=== PATIENT | female | born 1935 | race Caucasian/White ===

== ENCOUNTER 2022-10-09 18:40 | Inpatient (IN) ==
[2022-10-09] MEDS ORDERED: OPTIRAY 320 125ml IV ONE (18:56)
[2022-10-09 19:12] LABS: iSTAT Creatinine 0.6 mg/dl (0.6-1.3); iSTAT Hemoglobin 14.6 g/dl (12.0-16.0); iSTAT Ionized Calcium 1.13 mmol/l (1.12-1.32); iSTAT Potassium 4.2 mmol/L (3.3-5.0)
[2022-10-09 19:18] LABS: Basophils # (auto) 0.06 K/uL (0-0.2); Basophils % (auto) 0.5 %; Eosinophils # (auto) 0.25 K/uL (0-0.50); Eosinophils % (auto) 2.1 %; Hematocrit (blood only) 41.5 % (37.0-47.0); Hemoglobin 13.8 g/dl (12.0-16.0); Immature Granulocytes # (auto) 0.12 K/uL (0.01-0.20); Lymphocytes # (auto) 0.97 K/uL (1.2-3.4); Lymphocytes % (auto) 8.3 %; Mean Corpuscular Hemoglobin 28.9 pg (25.0-34.0); Mean Corpuscular Hgb Conc 33.3 g/dL (32.0-36.0); Mean Platelet Volume 10.9 fL (9.4-12.4); Monocytes # (auto) 0.68 K/uL (0.11-0.59); Monocytes % (auto) 5.8 %; Neutrophils # (auto) 9.67 K/uL (1.40-6.50); Neutrophils % (auto) 82.3 %; Platelet Count 259 K/uL (130-400); RDW Coefficient of Variation 13.3 % (11.5-14.5); RDW Standard Deviation 42.3 fL (36.4-46.3); Red Blood Count 4.77 M/uL (4.20-5.40); White Blood Count 11.75 K/ul (4.8-10.8)
--- NOTE | 2022-10-09 19:26 | CT Scan Report ---
Exam(s): CT HEAD Without Contrast EXAM: CT Head Without Intravenous Contrast CLINICAL HISTORY: Reason for exam: neuro deficit, acute stroke suspected. TECHNIQUE: Axial computed tomography images of the head/brain without intravenous contrast. CTDI is 46.63 mGy and DLP is 1020.79 mGy-cm. Automated exposure control was utilized for the study. A dose lowering technique was utilized adhering to the principles of ALARA. COMPARISON: No relevant prior studies available. 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 No clear acute large vessel territory infarction. No intracranial hemorrhage or mass-effect. Atherosclerosis of skull base arteries. The calvarium is intact. No mastoid or paranasal sinus effusion. Left ocular lens prosthesis. IMPRESSION: No acute intracranial process. Communications: Call Doctor Stroke Electronically signed by: Iker Andujar M.D. 10/09/22 19:26 PM
[2022-10-09 19:27] LABS: Albumin Globulin Ratio 1.3 (0.9-2); BUN Creatinine Ratio 38.2 (10-20); Bilirubin,Total 0.5 mg/dl (0.2-1.0); Calcium 9.1 mg/dl (8.6-10.3); Creatinine Clr Calc Pharmacy 44.8 ml/min; Est GFR (African American) 91.8 ml/min; Est GFR (Non-African American) 79.2 ml/min; Globulin 3.2 gm/dl (2.5-4.0); Potassium 4.3 mmol/L (3.5-5.1); Total Protein 7.2 gm/dl (6.0-8.3)
[2022-10-09 19:32] LABS: Troponin I High Sensitivity 8.1 pg/ml (0-14)
--- NOTE | 2022-10-09 19:35 | Emergency Department Note ---
History of Present Illness General Chief complaint: TIA Symptoms Stated complaint: POSSIBLE MINI STROKE OR SEIZURE Time Seen by Provider: 10/09/22 18:47 Source: family History of Present Illness Provider complaint: Altered mental status 87-year-old female presents emergency department with daughter and family members for altered mental status. Daughter reports that approximately 1715 tonight the patient became unresponsive. They state that she was sweaty and her eyes rolled back she was not responding. They state she is usually alert and oriented. 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. Home Medications Medication Instructions Recorded Confirmed Type amlodipine 2.5 mg tablet 2.5 mg PO QAM 10/09/22 10/09/22 History aspirin 81 mg tablet,delayed 81 mg PO QAM 10/09/22 10/09/22 History release atorvastatin 40 mg tablet 40 mg PO QAM 10/09/22 10/09/22 History cyanocobalamin (vitamin B-12) 500 500 mcg PO QAM 10/09/22 10/09/22 History mcg tablet docusate sodium 100 mg capsule 100 mg PO DAILY PRN Constipation 10/09/22 10/09/22 History fluoxetine 10 mg capsule 10 mg PO QAM 10/09/22 10/09/22 History fluoxetine 20 mg capsule 20 mg PO QAM 10/09/22 10/09/22 History fluticasone propionate 50 1 spray intranasal QAM 10/09/22 10/09/22 History mcg/actuation nasal spray,suspension folic acid 1 mg tablet 1 mg PO BID 10/09/22 10/09/22 History hydrocortisone 2.5 % topical cream 1 applic topical BID 10/09/22 10/09/22 History with perineal applicator (Procto-Med ) lansoprazole 15 mg capsule,delayed 15 mg PO DAILYBB 10/09/22 10/09/22 History release levothyroxine 75 mcg tablet 75 mcg PO DAILYBB 10/09/22 10/09/22 History losartan 50 mg tablet 50 mg PO BID 10/09/22 10/09/22 History melatonin 5 mg tablet 5 mg PO HS 10/09/22 10/09/22 History polyethylene glycol 3350 17 17 g PO DAILY PRN Constipation 10/09/22 10/09/22 History gram/dose oral powder (Miralax) sennosides 8.6 mg tablet (senna) 8.6 mg PO DAILY PRN Constipation 10/09/22 10/09/22 History sodium chloride 1,000 mg soluble 1,000 mg PO QAM 10/09/22 10/09/22 History tablet tizanidine 4 mg tablet 4 mg PO BID 10/09/22 10/09/22 History triamcinolone acetonide 0.1 % 1 applic topical BID 10/09/22 10/09/22 History topical cream Allergies Allergy/AdvReac Type Severity Reaction Status Date / Time allopurinol Allergy Unknown Verified 10/09/22 19:28 lisinopril Allergy Cough Verified 10/09/22 19:28 Past Med/Surg History Medical History CVA (cerebral vascular accident) GERD (gastroesophageal reflux disease) HLD (hyperlipidemia) No pertinent family history Surgical History No pertinent past surgical history Social History Smoking Status: Never smoker Physical Exam Vital Signs Vital Signs - 24 hr 10/09/22 18:43 10/09/22 18:53 10/09/22 18:53 Temperature 36.5 C Temperature Source Temporal Artery Scan Pulse Rate 75 66 66 Pulse Rate from SpO2 Sensor Respiratory Rate 18 21 Blood Pressure 138/73 Blood Pressure Mean 94 Pulse Oximetry 94 Oxygen Delivery Method Room Air Sepsis Recent Fever Within 48 Hours No Sepsis New/Unexplained Change in Mental Status No Sepsis Action Taken by Nursing No Action Required 10/09/22 19:00 10/09/22 19:11 10/09/22 19:16 Temperature Temperature Source Pulse Rate 67 100 H 73 Pulse Rate from SpO2 Sensor 66 84 73 Respiratory Rate 21 12 21 Blood Pressure 146/72 H 146/68 H Blood Pressure Mean 96 94 Pulse Oximetry 95 92 98 Oxygen Delivery Method Sepsis Recent Fever Within 48 Hours Sepsis New/Unexplained Change in Mental Status Sepsis Action Taken by Nursing 10/09/22 19:20 10/09/22 19:30 Temperature Temperature Source Pulse Rate 72 70 Pulse Rate from SpO2 Sensor 71 71 Respiratory Rate 19 19 Blood Pressure 147/93 H Blood Pressure Mean 111 Pulse Oximetry 97 95 Oxygen Delivery Method Sepsis Recent Fever Within 48 Hours Sepsis New/Unexplained Change in Mental Status Sepsis Action Taken by Nursing Physical Exam EYES: Conjunctivae and EOM are normal. Pupils are equal, round, and reactive to light. Right eye exhibits no discharge. Left eye exhibits no discharge. No scleral icterus. NECK: Normal range of motion. Neck supple. No JVD present. CV: Normal rate, regular rhythm, normal heart sounds and intact distal pulses. There is no peripheral edema. Palpable radial pulses bue. PULM/CHEST: Effort normal and breath sounds normal. No respiratory distress. No stridor. She has no wheezes. She has no rales. NEURO: Patient is alert. She is responsive to her name. She does have some left-sided neglect family reports this is new. Left-sided hemiparesis at baseline. Course Course 1846: The patient was evaluated in room C4. A complete history and physical exam was performed Cardiac monitoring: An order was placed for continuous cardiac monitoring. The monitor shows a rate of 60 with sinus rhythm interpreted by me Code stroke called. 1906: CT of the head viewed by me shows no ICH. There is a large right-sided infarct which appears old. Discussed with her she telestroke Dr. Milligan who will evaluate the pateint 1936: Vital signs stable. Patient more alert.. Discussed with Dr. Brian Evarts telestroke who compared today's imaging to the previous imaging at [facility]. He states there are no acute findings. Given the sudden onset of the patient's symptoms and her come back to her baseline mental status and neurological status there is strong likelihood that the patient could have had a seizure after her large stroke in the past. He recommends loading the patient with Keppra 1 g IV piggyback and inserted the patient on Keppra 500 mg twice daily. Patient be admitted to the hospital service for MRI and further neurological work-up. Family is in agreement with the plan. Administered Medications Discontinued Medications Ioversol (Optiray 320 125ml) 120 ml IV ONCE ONE Stop: 10/09/22 18:57 Last Admin: 10/09/22 18:56 Dose: 120 ml Documented By: ERIC Medical Decision Making Laboratory Data Attestation: I reviewed the patient's lab results. 10/09/22 18:57 10/09/22 18:57 Lab Results 10/09/22 10/09/22 10/09/22 Range/Units 18:51 18:57 18:57 WBC 11.75 H (4.8-10.8) K/ul RBC 4.77 (4.20-5.40) M/uL Hgb 13.8 (12.0-16.0) g/dl POC Hgb (12.0-16.0) g/dl Hct 41.5 (37.0-47.0) % POC Hct (37-47) % MCV 87.0 (80.0-100.0) fL MCH 28.9 (25.0-34.0) pg MCHC 33.3 (32.0-36.0) g/dL RDW Std Deviation 42.3 (36.4-46.3) fL RDW Coeff of Cheryl 13.3 (11.5-14.5) % Plt Count 259 (130-400) K/uL MPV 10.9 (9.4-12.4) fL Immature Gran % (Auto) 1.0 % Neut % (Auto) 82.3 % Lymph % (Auto) 8.3 % Brown % (Auto) 5.8 % Eos % (Auto) 2.1 % Baso % (Auto) 0.5 % Neut # (Auto) 9.67 H (1.40-6.50) K/uL Lymph # (Auto) 0.97 L (1.2-3.4) K/uL Brown # (Auto) 0.68 H (0.11-0.59) K/uL Eos # (Auto) 0.25 (0-0.50) K/uL Baso # (Auto) 0.06 (0-0.2) K/uL Immature Gran # (Auto) 0.12 (0.01-0.20) K/uL PT 10.6 (9.0-12.0) Seconds INR 1.0 (0.9-1.1) APTT 24.8 (21.0-31.0) Seconds PTT Ratio 0.9 POC Sodium (135-144) mmol/L Sodium (136-145) mmol/L POC Potassium (3.3-5.0) mmol/L Potassium (3.5-5.1) mmol/L POC Chloride (101-112) mmol/L Chloride (98-107) mmol/L Carbon Dioxide (21-32) mmol/L POC Total CO2 (24-31) mmol/L Anion Gap (3-11) POC Anion Gap (16-25) mmol/L POC BUN (7-18) mg/dl BUN (6-23) mg/dl Creatinine (0.6-1.2) mg/dl POC Creatinine (0.6-1.3) mg/dl Est Cr Clr Drug Dosing ml/min Est GFR ( Amer) ml/min Est GFR (Non-Af Amer) ml/min BUN/Creatinine Ratio (10-20) Glucose (70-99(Fasting)) mg/dl POC Glucose 117 H (70-99) mg/dl POC Glucose (other) (70-99) mg/dl Calcium (8.6-10.3) mg/dl POC Ioniz Calcium Mahendra (1.12-1.32) mmol/l Magnesium (1.7-2.4) mg/dl Total Bilirubin (0.2-1.0) mg/dl AST (13-39) U/L ALT (7-52) U/L Alkaline Phosphatase (34-104) U/L Troponin I High Sens (0-14) pg/ml Total Protein (6.0-8.3) gm/dl Albumin (3.4-5.0) gm/dl Globulin (2.5-4.0) gm/dl Albumin/Globulin Ratio (0.9-2) 10/09/22 10/09/22 Range/Units 18:57 19:00 WBC (4.8-10.8) K/ul RBC (4.20-5.40) M/uL Hgb (12.0-16.0) g/dl POC Hgb 14.6 (12.0-16.0) g/dl Hct (37.0-47.0) % POC Hct 43 (37-47) % MCV (80.0-100.0) fL MCH (25.0-34.0) pg MCHC (32.0-36.0) g/dL RDW Std Deviation (36.4-46.3) fL RDW Coeff of Cheryl (11.5-14.5) % Plt Count (130-400) K/uL MPV (9.4-12.4) fL Immature Gran % (Auto) % Neut % (Auto) % Lymph % (Auto) % Brown % (Auto) % Eos % (Auto) % Baso % (Auto) % Neut # (Auto) (1.40-6.50) K/uL Lymph # (Auto) (1.2-3.4) K/uL Brown # (Auto) (0.11-0.59) K/uL Eos # (Auto) (0-0.50) K/uL Baso # (Auto) (0-0.2) K/uL Immature Gran # (Auto) (0.01-0.20) K/uL PT (9.0-12.0) Seconds INR (0.9-1.1) APTT (21.0-31.0) Seconds PTT Ratio POC Sodium 140 (135-144) mmol/L Sodium 138 (136-145) mmol/L POC Potassium 4.2 (3.3-5.0) mmol/L Potassium 4.3 (3.5-5.1) mmol/L POC Chloride 104 (101-112) mmol/L Chloride 105 (98-107) mmol/L Carbon Dioxide 26 (21-32) mmol/L POC Total CO2 24 (24-31) mmol/L Anion Gap 7 (3-11) POC Anion Gap 18.0 (16-25) mmol/L POC BUN 25 H (7-18) mg/dl BUN 26 H (6-23) mg/dl Creatinine 0.68 (0.6-1.2) mg/dl POC Creatinine 0.6 (0.6-1.3) mg/dl Est Cr Clr Drug Dosing 44.8 ml/min Est GFR ( Amer) 91.8 ml/min Est GFR (Non-Af Amer) 79.2 ml/min BUN/Creatinine Ratio 38.2 H (10-20) Glucose 116 H (70-99(Fasting)) mg/dl POC Glucose (70-99) mg/dl POC Glucose (other) 116 H (70-99) mg/dl Calcium 9.1 (8.6-10.3) mg/dl POC Ioniz Calcium Mahendra 1.13 (1.12-1.32) mmol/l Magnesium 2.0 (1.7-2.4) mg/dl Total Bilirubin 0.5 (0.2-1.0) mg/dl AST 17 (13-39) U/L ALT 29 (7-52) U/L Alkaline Phosphatase 118 H (34-104) U/L Troponin I High Sens 8.1 (0-14) pg/ml Total Protein 7.2 (6.0-8.3) gm/dl Albumin 4.0 (3.4-5.0) gm/dl Globulin 3.2 (2.5-4.0) gm/dl Albumin/Globulin Ratio 1.3 (0.9-2) Imaging Data Attestation: I personally reviewed and interpreted this imaging study as follows: My Impression: CT head: Large old right-sided infarct. No ICH. Radiologist's Impression: Head CT 10/09/22 18:52 CR Exam(s): CT HEAD Without Contrast EXAM: CT Head Without Intravenous Contrast CLINICAL HISTORY: Reason for exam: neuro deficit, acute stroke suspected. TECHNIQUE: Axial computed tomography images of the head/brain without intravenous contrast. CTDI is 46.63 mGy and DLP is 1020.79 mGy-cm. Automated exposure control was utilized for the study. A dose lowering technique was utilized adhering to the principles of ALARA. COMPARISON: No relevant prior studies available. 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 No clear acute large vessel territory infarction. No intracranial hemorrhage or mass-effect. Atherosclerosis of skull base arteries. The calvarium is intact. No mastoid or paranasal sinus effusion. Left ocular lens prosthesis. IMPRESSION: No acute intracranial process. Communications: Call Doctor Stroke Electronically signed by: Iker Andujar M.D. 10/09/22 19:26 PM Head CTA 10/09/22 18:52 CR Exam(s): CTA HEAD With Contrast IV Amt: 120ML OPTIRAY 320 EXAM: CT Angiography Head With Intravenous Contrast CLINICAL HISTORY: Reason for exam: neuro deficit, acute stroke suspected. TECHNIQUE: Axial computed tomographic angiography images of the head with intravenous contrast. CTDI is 46.63 mGy and DLP is 1020.79 mGy-cm. Automated exposure control was utilized for the study. A dose lowering technique was utilized adhering to the principles of ALARA. MIP reconstructed images were created and reviewed. CONTRAST: Patient received 120ML OPTIRAY 320 of IV contrast COMPARISON: Noncontrast exam of same date. FINDINGS: Chronically atretic branches of the right middle cerebral artery related to the large chronic infarct as seen on concurrent noncontrast exam. The left MCA demonstrates no acute thromboembolism. There is extensive atherosclerosis of the intracranial internal carotid arteries with severe bilateral supraclinoid segment narrowing and moderate stenosis elsewhere. Severe left and moderate right intracranial vertebral artery narrowing. Patent basilar artery. IMPRESSION: No acute large vessel occlusion. 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 Severe intracranial internal carotid artery stenosis. Severe left and moderate right vertebral artery narrowing. Communications: Call Doctor Stroke Electronically signed by: Iker Andujar M.D. 10/09/22 19:32 PM Neck CTA 10/09/22 18:52 CR Exam(s): CTA NECK With Contrast IV Amt: 120ML OPTIRAY 320 EXAM: CT Angiography Neck With Intravenous Contrast CLINICAL HISTORY: Reason for exam: neuro deficit, acute stroke suspected. TECHNIQUE: Routine carotid CT angiography protocol was performed with intravenous contrast. NASCET criteria using the distal ICAs for comparison were used for evaluation of stenoses. CTDI is 12.46 mGy and DLP is 1020.79 mGy-cm. Automated exposure control was utilized for the study. A dose lowering technique was utilized adhering to the principles of ALARA. MIP reconstructed images were created and reviewed. CONTRAST: Patient received 120ML OPTIRAY 320 of IV contrast COMPARISON: None. FINDINGS: Calcified plaque at the left carotid bifurcation with severe stenosis of the proximal left internal carotid artery, 90% narrowed. Moderate narrowing of the proximal left external carotid artery as well. Plaque at the right carotid bifurcation is not associated with significant narrowing. Mild narrowing of the dominant right vertebral artery at the C1 level. 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 Mild plaque at the origin without narrowing. Mild, age indeterminate compression deformity of the T1 vertebral body. No retropulsion. Multilevel spondylosis. CAROTID STENOSIS REFERENCE USING NASCET CRITERIA: % ICA stenosis = (1 - narrowest ICA diameter/diameter of distal cervical ICA) x 100. Mild - <50% stenosis. Moderate - 50-69% stenosis. Severe - 70-94% stenosis. Near occlusion - 95-99% stenosis. Occluded - 100% stenosis. IMPRESSION: Calcified plaque at the left carotid bifurcation with severe stenosis of the proximal left internal carotid artery, 90% narrowed. Mild narrowing of the dominant right vertebral artery at the C1 level. Mild, age indeterminate compression deformity of the T1 vertebral body. Communications: Call Doctor Stroke Electronically signed by: Iker Andujar M.D. 10/09/22 19:39 PM ECG Data Attestation: I personally reviewed and interpreted this ECG as follows: Rate (beats per minute): 77 Rhythm: + normal sinus ECG Intervals/blocks: + Normal AR and + Normal QT-c ECG ST segments: + Normal ST segments Additional Comments: QRS 74 MDM Narrative 1846: The patient was evaluated in room C4. A complete history and physical exam was performed Cardiac monitoring: An order was placed for continuous cardiac monitoring. The monitor shows a rate of 60 with sinus rhythm interpreted by me Code stroke called. 1906: CT of the head viewed by me shows no ICH. There is a large right-sided infarct which appears old. Discussed with her she telestroke Dr. Milligan who will evaluate the pateint 1936: Vital signs stable. Patient more alert.. Discussed with Dr. Brian Evarts telestroke who compared today's imaging to the previous imaging at [facility]. He states there are no acute findings. Given the sudden onset of the patient's symptoms and her come back to her baseline mental status and neurological status there is strong likelihood that the patient could have had a seizure after her large stroke in the past. He recommends loading the patient with Keppra 1 g IV piggyback and inserted the patient on Keppra 500 mg twice daily. Patient be admitted to the hospital service for MRI and further neurological work-up. Family is in agreement with the plan. Impression & Plan Brain TIA, Seizure-like activity Discharge Plan Visit Data Chief Complaint: TIA Symptoms Stated Complaint: POSSIBLE MINI STROKE OR SEIZURE ED Provider: Jacques Fernandez Discharge Problem: Brain TIA, Seizure-like activity Patient Disposition: Admitted As Inpatient Forms Stand Alone Forms: My [facility] Prescriptions Prescriptions: No Action atorvastatin 40 mg tablet 40 mg PO QAM levothyroxine 75 mcg tablet 75 mcg PO DAILYBB hydrocortisone [Procto-Med HC] 2.5 % cream with perineal applicator 1 applic topical BID losartan 50 mg tablet 50 mg PO BID triamcinolone acetonide 0.1 % cream 1 applic TOPICAL BID cyanocobalamin (vitamin B-12) 500 mcg tablet 500 mcg PO QAM lansoprazole 15 mg capsule,delayed release(DR/EC) 15 mg PO DAILYBB folic acid 1 mg tablet 1 mg PO BID amlodipine 2.5 mg tablet 2.5 mg PO QAM fluoxetine 10 mg capsule 10 mg PO QAM fluoxetine 20 mg capsule 20 mg PO QAM melatonin 5 mg Tablet 5 mg PO HS tizanidine 4 mg tablet 4 mg PO BID aspirin [Aspirin Low-Strength] 81 mg Tablet,Delayed Release (Dr/Ec) 81 mg PO QAM sodium chloride 1,000 mg Tablet,Soluble 1,000 mg PO QAM docusate sodium 100 mg Capsule 100 mg PO DAILY PRN (Reason: Constipation) polyethylene glycol 3350 [Miralax] 17 gram/dose Powder 17 g PO DAILY PRN (Reason: Constipation) fluticasone propionate 50 mcg/actuation spray,suspension 1 spray INTRANASAL QAM sennosides [senna] 8.6 mg Tablet 8.6 mg PO DAILY PRN (Reason: Constipation) Referrals Referrals: Brock Stuart MD [Primary Care Provider] -
[2022-10-09] MEDS ORDERED: levETIRAcetam 1,000 MG in 0.9 % SODIUM CHLORIDE 100 ML IV STA (19:39)
--- NOTE | 2022-10-09 19:40 | CT Scan Report ---
Exam(s): CTA NECK With Contrast IV Amt: 120ML OPTIRAY 320 EXAM: CT Angiography Neck With Intravenous Contrast CLINICAL HISTORY: Reason for exam: neuro deficit, acute stroke suspected. TECHNIQUE: Routine carotid CT angiography protocol was performed with intravenous contrast. NASCET criteria using the distal ICAs for comparison were used for evaluation of stenoses. CTDI is 12.46 mGy and DLP is 1020.79 mGy-cm. Automated exposure control was utilized for the study. A dose lowering technique was utilized adhering to the principles of ALARA. MIP reconstructed images were created and reviewed. CONTRAST: Patient received 120ML OPTIRAY 320 of IV contrast COMPARISON: None. FINDINGS: Calcified plaque at the left carotid bifurcation with severe stenosis of the proximal left internal carotid artery, 90% narrowed. Moderate narrowing of the proximal left external carotid artery as well. Plaque at the right carotid bifurcation is not associated with significant narrowing. Mild narrowing of the dominant right vertebral artery at the C1 level. 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 Mild plaque at the origin without narrowing. Mild, age indeterminate compression deformity of the T1 vertebral body. No retropulsion. Multilevel spondylosis. CAROTID STENOSIS REFERENCE USING NASCET CRITERIA: % ICA stenosis = (1 - narrowest ICA diameter/diameter of distal cervical ICA) x 100. Mild - <50% stenosis. Moderate - 50-69% stenosis. Severe - 70-94% stenosis. Near occlusion - 95-99% stenosis. Occluded - 100% stenosis. IMPRESSION: Calcified plaque at the left carotid bifurcation with severe stenosis of the proximal left internal carotid artery, 90% narrowed. Mild narrowing of the dominant right vertebral artery at the C1 level. Mild, age indeterminate compression deformity of the T1 vertebral body. Communications: Call Doctor Stroke Electronically signed by: Iker Andujar M.D. 10/09/22 19:39 PM
[2022-10-09 19:43] LABS: Partial Thromboplastin Ratio 0.9; Partial Thromboplastin Time 24.8 Seconds (21.0-31.0); Prothrombin Time 10.6 Seconds (9.0-12.0)
[2022-10-09] MEDS ORDERED: SODIUM CHLORIDE 0.9% 1000ML 1,000 ML IV ONE (19:55)
--- NOTE | 2022-10-09 20:04 | History & Physical Report ---
Date of Service October 09, 2022 Assessment & Plan (1) Stroke-like symptoms: (2) Seizure-like activity: (3) HLD (hyperlipidemia): (4) HTN (hypertension): (5) History of CVA (cerebrovascular accident): (6) Hypothyroidism: Plan 87 year old that presents to ED with stroke like symptoms. [facility] [place] suspect seizures post CVA 11/2021. Load with keppra and continue maintenance Keppra 10/10. MRI and EEG with Neuro consult. PT/OT/ST. Appears back to baseline. Has chronic left sided hemiplegia. Stroke Like Symptoms: Seizure Like Activity: CN II-XII intact. no facial droop head CT: No acute intracranial process. Head and Neck CTA: Calcified plaque at the left carotid bifurcation with severe stenosis of the proximal left internal carotid artery, 90% narrowed. Mild narrowing of the dominant right vertebral artery at the C1 level. [facility] [place] done in ED; suspect seizure related to previous stroke in 2021. Keppra loading dose with continued maintenance dose starting 10/10 MRI of brain to r/o CVA; patient with lens implant 2008 may need occular x-ray prior to MRI. EEG to evaluate brain wave activity Neuro Consult PT/OT/ST NPO until ST eval/dysphagia screening H/O R MCA CVA: s/p thrombectomy Stroke 11/25/21 and was living in [place] Was at [facility] and then [facility] for two weeks. chronic left sided hemiplegia She is on ASA for secondary stroke prevention Enteral Nutrition: s/p CVA Has a LUQ PEG tube post stroke; gets Jevity 1.2 Q4 via PEG. All feedings and meds through PEG. Medications need to be converted to crushable, granules, or IV Some redness noted around PEG site; consider WOCN consult Diarrhea from feedings; consider Nutrition consult for feeding dose adjustments Elevate heels off of bed for skin integrity promotion due to increased contractures HTN: takes Amlodipine and Losartan; consider holding for permissive HTN until CVA ruled out with MRI HLD: Takes Atorvastatin; continue Neuro may consider higher dose Hypothyroidism: Takes Levothyroxine; continue Disposition: PCP: Dr. Bettencourt Code Status: DNR/DNI VTE Prophylaxis: TEDS/SCDs or otherwise outlined by attending physician I spent a total of 87 minutes coordinating, documenting, and providing care for this patient excluding time spent in the performance of separately billed services. All of the aforementioned completed while collaborating with the assigned attending physician for a full treatment plan. Please see their addendum for further details. History of Present Illness Chief Complaint: stroke like symptoms Primary Care Provider: Brock Stuart MD 87 year old that presents with family after being found to be unresponsive at home. At 1715 she was leaning back in her wheelchair and she was diaphoretic and not lifting her head up. Her eyes were rolling back and became unresponsive. She was not consistency answering questions. She was ok earlier today and then had an acute change. She is mostly wheelchair bound at baseline. Pt daughter, Gavi reports it appears she has returned to her normal baseline mental status. She was able to answer some questions on her own to me, but is AAOx1. She is unaware as to what brought her in to the hospital today and does not recall any of the events from earlier this evening. No reported seizures. 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 Patient is on ASA for secondary stroke prevention as well as Lipitor. 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 She has been reportedly declining since her stroke in 2021 for which she was admitted for two weeks and then went to [facility] for two weeks therafter. She does have moderate baseline cognitive deficits post stroke, with intermittent periods of delirium and confusion. After her stroke she had a PEG tube placed and receives Bolus feedings with Jevity 1.2. Feeding tube is utiliz ed for feedings and medications. She takes 4-5 8 oz containers per day. Most recent swallow study was in February 2022. She is able to eat pureed and drinks coffee orally, small sips. She does have some coughing and drooling with eating. She was following with Haseeb ROTHMAN in [facility] for management of her PEG tube but was discharged from care in May 2022 as she was tolerative the tube without issues, leakage, or inflammation. Pt does have a cardiac LINQ Medtr[employer] device that was placed in [place] and reportedly is for evaluation for arrhythmias and AF. No known events reported by daughter. No tobacco, alcohol, or recreational drug use. Mild Leukocytosis; WBC 111.75, otherwise labs unremarkable. Family is trying to obtain respite care for an upcoming trip. Confirmed patient is DNR/DNI. No fever or chills recently, no chest pain, or known palpitations, no abdominal pain, Nausea or vomiting, no recent travel. Pt does have diarrhea from [facility]. No malodorous stool or mucus noted. Patient will be admitted for further evaluation and management. Please see A/P for further details. Allergies Allergy/AdvReac Type Severity Reaction Status Date / Time allopurinol Allergy Unknown Verified 10/09/22 19:28 lisinopril Allergy Cough Verified 10/09/22 19:28 Home Medications Medication Instructions Recorded Confirmed Type amlodipine 2.5 mg tablet 2.5 mg PO QAM 10/09/22 10/09/22 History aspirin 81 mg tablet,delayed 81 mg PO QAM 10/09/22 10/09/22 History release atorvastatin 40 mg tablet 40 mg PO QAM 10/09/22 10/09/22 History cyanocobalamin (vitamin B-12) 500 500 mcg PO QAM 10/09/22 10/09/22 History mcg tablet docusate sodium 100 mg capsule 100 mg PO DAILY PRN Constipation 10/09/22 10/09/22 History fluoxetine 10 mg capsule 10 mg PO QAM 10/09/22 10/09/22 History fluoxetine 20 mg capsule 20 mg PO QAM 10/09/22 10/09/22 History fluticasone propionate 50 1 spray intranasal QAM 10/09/22 10/09/22 History mcg/actuation nasal spray,suspension folic acid 1 mg tablet 1 mg PO BID 10/09/22 10/09/22 History hydrocortisone 2.5 % topical cream 1 applic topical BID 10/09/22 10/09/22 History with perineal applicator (Procto-Med ) lactose-reduced food with fiber 1 ea feeding tube Q4H 10/09/22 10/09/22 History 0.06 gram-1.2 kcal/mL oral liquid (Jevity 1.2 Hakeem) lansoprazole 15 mg capsule,delayed 15 mg PO DAILYBB 10/09/22 10/09/22 History release levothyroxine 75 mcg tablet 75 mcg PO DAILYBB 10/09/22 10/09/22 History losartan 50 mg tablet 50 mg PO BID 10/09/22 10/09/22 History melatonin 5 mg tablet 5 mg PO HS 10/09/22 10/09/22 History polyethylene glycol 3350 17 17 g PO DAILY PRN Constipation 10/09/22 10/09/22 History gram/dose oral powder (Miralax) sennosides 8.6 mg tablet (senna) 8.6 mg PO DAILY PRN Constipation 10/09/22 10/09/22 History sodium chloride 1,000 mg soluble 1,000 mg PO QAM 10/09/22 10/09/22 History tablet triamcinolone acetonide 0.1 % 1 applic topical BID 10/09/22 10/09/22 History topical cream Past Med/Surg History Medical History (Updated 10/09/22 @ 20:59 by CRICKET Casillas) CVA (cerebral vascular accident) GERD (gastroesophageal reflux disease) History of CVA (cerebrovascular accident) HLD (hyperlipidemia) HTN (hypertension) Hypothyroidism No pertinent family history Stroke-like symptoms Surgical History No pertinent past surgical history Social History Smoking Status: Never smoker Hx Alcohol Use: No Hx Substance Use: No Preferred Language: Nepali Communication Ability: Effective 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 Other Information That Helps Us Care for You: No Feels Safe at Home: Yes Safety Concerns: Feels Safe At This Time Assistive Devices: Denture - Upper and Wheelchair Review of Systems Review of Systems: Neuro: (-) Falls, trauma, slurred speech HEENT: (-) CARRERA, dizziness, dysphagia, visual or auditory changes CV: (-) CP, palpitations, swelling Resp: (-) SOB GI: (-) appetite changes, N/V/D, bowel changes : (-) urinary changes Skin: (-) rashes Psych: (-) anxiety, depression Physical Exam Physical Exam: Neuro: AAOx4, PERRLA, no aphagia, memory changes, CNII-XII grossly intact HEENT: head normocephalic, moist mucus membranes CV: S1/S2, (-) M/G/R, (-) edema, cap refill < 3 seconds Resp: Lungs CTA in all shoemaker. On RA GI: Abdomen S/NT/ND, Ax4 bowel sounds, (-) CVA tenderness Musculoskeletal: 5/5 B/L UE strength, 5/5 B/L LE strength. No gait disturbance Skin: (-) rashes , (-) erythema. Psych: euthymic mood Results & Data Results & Data Vital Signs (Past 12 Hours) Vital Signs Temp Pulse Resp BP Pulse Ox O2 Del Method 10/09/22 19:30 70 19 147/93 H 95 10/09/22 19:20 72 19 97 10/09/22 19:16 73 21 146/68 H 98 10/09/22 19:11 100 H 12 92 10/09/22 19:00 67 21 146/72 H 95 10/09/22 18:53 66 21 10/09/22 18:53 66 10/09/22 18:43 36.5 C 75 18 138/73 94 Room Air Laboratory Results Short CBC 10/09/22 Range/Units 18:57 WBC 11.75 H (4.8-10.8) K/ul Hgb 13.8 (12.0-16.0) g/dl Hct 41.5 (37.0-47.0) % Plt Count 259 (130-400) K/uL BMP 10/09/22 18:57 Sodium 138 Potassium 4.3 Chloride 105 Carbon Dioxide 26 BUN 26 H Creatinine 0.68 Glucose 116 H Calcium 9.1 Liver Function 10/09/22 Range/Units 18:57 Total Bilirubin 0.5 (0.2-1.0) mg/dl AST 17 (13-39) U/L ALT 29 (7-52) U/L Alkaline Phosphatase 118 H (34-104) U/L Albumin 4.0 (3.4-5.0) gm/dl Diagnostic Findings Head CT 10/09/22 18:52 CR Exam(s): CT HEAD Without Contrast EXAM: CT Head Without Intravenous Contrast CLINICAL HISTORY: Reason for exam: neuro deficit, acute stroke suspected. TECHNIQUE: Axial computed tomography images of the head/brain without intravenous contrast. CTDI is 46.63 mGy and DLP is 1020.79 mGy-cm. Automated exposure control was utilized for the study. A dose lowering technique was utilized adhering to the principles of ALARA. COMPARISON: No relevant prior studies available. 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 No clear acute large vessel territory infarction. No intracranial hemorrhage or mass-effect. Atherosclerosis of skull base arteries. The calvarium is intact. No mastoid or paranasal sinus effusion. Left ocular lens prosthesis. IMPRESSION: No acute intracranial process. Communications: Call Doctor Stroke Electronically signed by: Iker Andujar M.D. 10/09/22 19:26 PM Head CTA 10/09/22 18:52 CR Exam(s): CTA HEAD With Contrast IV Amt: 120ML OPTIRAY 320 EXAM: CT Angiography Head With Intravenous Contrast CLINICAL HISTORY: Reason for exam: neuro deficit, acute stroke suspected. TECHNIQUE: Axial computed tomographic angiography images of the head with intravenous contrast. CTDI is 46.63 mGy and DLP is 1020.79 mGy-cm. Automated exposure control was utilized for the study. A dose lowering technique was utilized adhering to the principles of ALARA. MIP reconstructed images were created and reviewed. CONTRAST: Patient received 120ML OPTIRAY 320 of IV contrast COMPARISON: Noncontrast exam of same date. FINDINGS: Chronically atretic branches of the right middle cerebral artery related to the large chronic infarct as seen on concurrent noncontrast exam. The left MCA demonstrates no acute thromboembolism. There is extensive atherosclerosis of the intracranial internal carotid arteries with severe bilateral supraclinoid segment narrowing and moderate stenosis elsewhere. Severe left and moderate right intracranial vertebral artery narrowing. Patent basilar artery. IMPRESSION: No acute large vessel occlusion. 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 Severe intracranial internal carotid artery stenosis. Severe left and moderate right vertebral artery narrowing. Communications: Call Doctor Stroke Electronically signed by: Iker Andujar M.D. 10/09/22 19:32 PM Neck CTA 10/09/22 18:52 CR Exam(s): CTA NECK With Contrast IV Amt: 120ML OPTIRAY 320 EXAM: CT Angiography Neck With Intravenous Contrast CLINICAL HISTORY: Reason for exam: neuro deficit, acute stroke suspected. TECHNIQUE: Routine carotid CT angiography protocol was performed with intravenous contrast. NASCET criteria using the distal ICAs for comparison were used for evaluation of stenoses. CTDI is 12.46 mGy and DLP is 1020.79 mGy-cm. Automated exposure control was utilized for the study. A dose lowering technique was utilized adhering to the principles of ALARA. MIP reconstructed images were created and reviewed. CONTRAST: Patient received 120ML OPTIRAY 320 of IV contrast COMPARISON: None. FINDINGS: Calcified plaque at the left carotid bifurcation with severe stenosis of the proximal left internal carotid artery, 90% narrowed. Moderate narrowing of the proximal left external carotid artery as well. Plaque at the right carotid bifurcation is not associated with significant narrowing. Mild narrowing of the dominant right vertebral artery at the C1 level. 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 Mild plaque at the origin without narrowing. Mild, age indeterminate compression deformity of the T1 vertebral body. No retropulsion. Multilevel spondylosis. CAROTID STENOSIS REFERENCE USING NASCET CRITERIA: % ICA stenosis = (1 - narrowest ICA diameter/diameter of distal cervical ICA) x 100. Mild - <50% stenosis. Moderate - 50-69% stenosis. Severe - 70-94% stenosis. Near occlusion - 95-99% stenosis. Occluded - 100% stenosis. IMPRESSION: Calcified plaque at the left carotid bifurcation with severe stenosis of the proximal left internal carotid artery, 90% narrowed. Mild narrowing of the dominant right vertebral artery at the C1 level. Mild, age indeterminate compression deformity of the T1 vertebral body. Communications: Call Doctor Stroke Electronically signed by: Iker Andujar M.D. 10/09/22 19:39 PM Supervising Physician Co-Signing Physician Notes IM ATTENDING : Patient seen and examined. History obtained from patient, family, and records. History somewhat limited from patient secondary to hearing impairment and dementia Preceding documentation by CRICKET Bird reviewed. In addition, Heart rate currently 140s UA WBC est FINAL ASSESSMENT AND PLAN as follows : Sepsis secondary to complicated UTI Transient unresponsiveness possibly secondary to new onset seizure hx abnormal EEG as per records hx right MCA stroke status post thrombectomy (2021) Lowered seizure threshold secondary to UTI Increased drooling symptoms, known aspiration risk hx PEG tube placement History PAF, patient NSR/sinus tachycardia at the ER hx PVD HTN, slightly elevated secondary to illness Dementia as per records Hypothyroidism, euthyroid as of recent outpatient TSH of 0.67 drawn this month Hyperglycemia rule out DM Past tobacco abuse PCU given tachycardia CS, Azactam for now; add Daptomycin if patient becomes febrile despite as Azactam rx or leukocytosis does not improve given history of Enterococcus UTI as per outpatient records Continue Keppra for seizure prophylaxis as per [facility] stroke specialist recommendation EEG, MRI brain for new onset seizure work-up Neurology consult Re: Possible new onset seizures Check hemoglobin A1c aspiration precautions, swallow eval DVT prophylaxis. Lovenox subcu DNR Patient daughter requesting updates from providers. Gavi Rebolledo, contact #[phone]. Text document was generated using [employer] voice recognition software. It may contain grammatical or spelling errors. Kindly contact undersigned for clarification of any documentation item in question.
[2022-10-09] MEDS ORDERED: LORazepam 2 MG/1 ML VIAL IV PRN (21:25)
--- NOTE | 2022-10-09 22:11 | XRay Report ---
BONY ORBITS 3 VIEWS CLINICAL HISTORY: MRI clearance. FINDINGS: 3 views of the bony orbits are obtained. No prior studies are available for comparison at t he time of dictation. There is no radiodense/metallic foreign body seen in the region of the bony orb its. The bony orbits are intact as imaged. The visualized paranasal sinuses and the mastoid air cells appear clear. The imaged calvarium appears intact. IMPRESSION: There is no radiodense/metallic foreign body seen in the region of the bony orbits. ACT 112: Negative or not required by law. Electronically signed by: Benny White M.D. 10/09/2022 10:08 PM
[2022-10-09 22:39] LABS: Appearance Urine Turbid (Clear); Bacteria Urine Automated 1+ (Negative); Bilirubin Urine Negative (Negative); Blood Urine 1+ (Negative); Color Urine Yellow; Epithelial Cell Urine Auto >30 /lpf (0-5); Glucose Urine UA Negative (Negative); Ketones Urine Negative (Negative); Leukocyte Esterase Urine 3+ (Negative); Nitrite Urine Negative (Negative); Protein Urine Trace (Negative); RBC Urine Automated 0-4 /hpf (0-4); Specific Gravity Urine 1.039 (1.000-1.030); Urobilinogen Urine Negative (Negative); WBC Urine Automated >30 /hpf (0-5)
[2022-10-09] MEDS ORDERED: GADOBUTROL 65ML VIAL IV ONE (23:01)
[2022-10-09] MEDS ORDERED: DOCUSATE SODIUM 100 MG CAP PO PRN (23:23)
[2022-10-09] MEDS ORDERED: ACETAMINOPHEN 1,000 MG/100 ML VIAL IV PRN (23:23)
[2022-10-09] MEDS ORDERED: [UNRECOGNIZED DRUG - OTHER] feeding tube SCH (23:23)
[2022-10-09] MEDS ORDERED: LACTOSE REDUCED FOOD WITH FIBR feeding tube SCH (23:23)
[2022-10-09] MEDS ORDERED: SENNA 8.6 MG TAB PO PRN (23:23)
[2022-10-10] MEDS: AZTREONAM 1,000 MG in DEXTROSE 5% 100 ML IV SCH ×2 (00:29→08:50)
--- NOTE | 2022-10-10 00:38 | Magnetic Resonance Report ---
Exam(s): MRI HEAD IV Amt: 5.5mL Gadavist EXAM: MR Head With Intravenous Contrast CLINICAL HISTORY: Seizure. TECHNIQUE: Magnetic resonance images of the head/brain with intravenous contrast in multiple planes. CONTRAST: Patient received 5.5mL Gadavist of IV contrast COMPARISON: CT head 10/09/2022 FINDINGS: Brain: Chronic infarct of the right MCA territory. No acute infarct. No intracranial hemorrhage, mass-effect or midline shift. Mild periventricular white matter T2/flair signal abnormalities are most consistent with chronic microangiopathy. Ventricles: Unremarkable. No ventriculomegaly. Bones/joints: Unremarkable. Sinuses: Unremarkable as visualized. No acute sinusitis. Mastoid air cells: Unremarkable as visualized. No mastoid effusion. Orbits: Unremarkable as visualized. IMPRESSION: No acute findings in the head/brain. Electronically signed by: Miya Mane MD 10/10/22 00:37 AM
[2022-10-10] MEDS: LEVOTHYROXINE SODIUM 75 MCG TABLET PO SCH (05:16)
[2022-10-10] MEDS: PANTOprazole 40 MG TAB PO SCH (05:16)
[2022-10-10 06:40] LABS: Basophils # (auto) 0.04 K/uL (0-0.2); Basophils % (auto) 0.5 %; Eosinophils # (auto) 0.31 K/uL (0-0.50); Eosinophils % (auto) 4.1 %; Hematocrit (blood only) 38.9 % (37.0-47.0); Immature Granulocytes # (auto) 0.07 K/uL (0.01-0.20); Immature Granulocytes % (auto) 0.9 %; Lymphocytes # (auto) 1.34 K/uL (1.2-3.4); Lymphocytes % (auto) 17.8 %; Mean Corpuscular Hemoglobin 28.8 pg (25.0-34.0); Mean Corpuscular Hgb Conc 33.4 g/dL (32.0-36.0); Mean Corpuscular Volume 86.3 fL (80.0-100.0); Mean Platelet Volume 11.1 fL (9.4-12.4); Monocytes # (auto) 0.75 K/uL (0.11-0.59); Neutrophils # (auto) 5.02 K/uL (1.40-6.50); Neutrophils % (auto) 66.7 %; Platelet Count 217 K/uL (130-400); RDW Coefficient of Variation 13.3 % (11.5-14.5); RDW Standard Deviation 41.4 fL (36.4-46.3); Red Blood Count 4.51 M/uL (4.20-5.40); White Blood Count 7.53 K/ul (4.8-10.8)
[2022-10-10 07:02] LABS: Calcium 9.4 mg/dl (8.6-10.3); Creatinine Clr Calc Pharmacy 67.4 ml/min; Est GFR (African American) 101.6 ml/min; Est GFR (Non-African American) 87.6 ml/min
[2022-10-10] MEDS: amLODIPine BESYLATE 5 MG TAB PO SCH (07:27)
[2022-10-10] MEDS: ATORVASTATIN 40 MG TAB PO SCH (07:28)
[2022-10-10] MEDS: ASPIRIN 81 MG ECTAB PO SCH (07:28)
[2022-10-10] MEDS: FLUoxetine HCL 10 MG CAP PO SCH (07:28)
[2022-10-10] MEDS: CYANOCOBALAMIN (B-12) 500 MCG TABLET PO SCH (07:29)
[2022-10-10] MEDS: LOSARTAN POTASSIUM 50 MG TAB PO SCH ×2 (07:29→20:38)
[2022-10-10] MEDS: FLUTICASONE PROPIONATE NA SPR 16 GM BTL SCH (07:30)
[2022-10-10] MEDS: FOLIC ACID 1 MG TAB PO SCH ×2 (07:30→20:38)
[2022-10-10] MEDS: HYDROCORTISONE HC 2.5% CRM 30GM TUBE EXT SCH ×2 (07:31→20:42)
[2022-10-10] MEDS: TRIAMCINOLONE ACET 0.1% CR 15 GM TUBE TOP SCH ×2 (07:31→20:42)
--- NOTE | 2022-10-10 08:13 | XRay Report ---
SINGLE VIEW CHEST CLINICAL HISTORY: Neurological deficit. Stroke like symptoms. FINDINGS: An AP, portable, upright chest radiograph is obtained. No prior studies are available for c omparison at the time of dictation. The examination is degraded by portable technique and patient rot ation. An electronic device projects over the left lower chest. The heart is mildly enlarged noting a therosclerotic calcification of the thoracic aorta. The pulmonary vasculature is noncongested. There are low lung volumes with bibasilar atelectasis. The lungs and pleural spaces are otherwise clear. No pneumothorax is seen. The skeletal structures are osteopenic. The bony thorax is grossly intact. IMPRESSION: Cardiomegaly with no acute cardiopulmonary abnormality. ACT 112: Negative or not required by law. Electronically signed by: Benny White M.D. 10/10/2022 8:12 AM
[2022-10-10] MEDS ORDERED: ENOXAPARIN INJ 30 MG/0.3 ML SYR SQ SCH (09:00)
[2022-10-10] MEDS ORDERED: FIBERSOURCE HN 1.2 CAL 1000 ML BAG GT SCH ×2 (10:15→10:30)
[2022-10-10] MEDS: TUBE FEEDING WATER FLUSH PEG SCH ×4 (10:45→22:16)
--- NOTE | 2022-10-10 12:37 | Neurology Consultation ---
Date of Consultation October 10, 2022 Assessment & Plan (1) Seizure: An 87 year old woman admitted with symptomatic seizure secondary to previous large right MCA ischemic stroke s/p thrombectomy for M1 occlussion in November 2021 with residual left sided hemiparesis s/p PEG on ASA for secondary stroke prevention. Found unresponsive yesterday with large abrasion or tongue bite on right side of her tongue consistent with seizure. Recommend to continue Keppra 500 mg BID Via PEG. MRI brain reviewed no evidence of acute stroke. Continue home asa for secondary stroke prevention. Neurology will sign off for now . Please call with any further quesitons or concerns. (2) Chronic right arterial ischemic stroke, MCA (middle cerebral artery): History of Present Illness Reason for Consultation: Unresponsive episode Attending Physician: Lonny Marte MD History of Present Illness An 87 year old female with Hx of large right MCA ischemic strok s/p M1 thrombectomy with residual left hemiparesis s/p PEG on ASA admitted with unresponsive episode yesterday. Brought to the ER as stroke alert. Found to have abrasion on right side of tongue. Loaded with Keppra. CVA alerted called. Did not receive IV TPA. She is DNR/DNI. She underwent MRI braidn on admission which was Negative for new stroke. Allergies Allergy/AdvReac Type Severity Reaction Status Date / Time allopurinol Allergy Unknown Verified 10/09/22 19:28 lisinopril Allergy Cough Verified 10/09/22 19:28 Home Medications Medication Instructions Recorded Confirmed Type amlodipine 2.5 mg tablet 2.5 mg PO QA 10/09/22 10/09/22 History aspirin 81 mg tablet,delayed 81 mg PO QA 10/09/22 10/09/22 History release atorvastatin 40 mg tablet 40 mg PO QA 10/09/22 10/09/22 History cyanocobalamin (vitamin B-12) 500 500 mcg PO QAM 10/09/22 10/09/22 History mcg tablet docusate sodium 100 mg capsule 100 mg PO DAILY PRN Constipation 10/09/22 10/09/22 History fluoxetine 10 mg capsule 10 mg PO QAM 10/09/22 10/09/22 History fluoxetine 20 mg capsule 20 mg PO QAM 10/09/22 10/09/22 History fluticasone propionate 50 1 spray intranasal QA 10/09/22 10/09/22 History mcg/actuation nasal spray,suspension folic acid 1 mg tablet 1 mg PO BID 10/09/22 10/09/22 History hydrocortisone 2.5 % topical cream 1 applic topical BID 10/09/22 10/09/22 History with perineal applicator (Procto-Med HC) lactose-reduced food with fiber 1 ea feeding tube Q4H 10/09/22 10/09/22 History 0.06 gram-1.2 kcal/mL oral liquid (Jevity 1.2 Hakeem) lansoprazole 15 mg capsule,delayed 15 mg PO DAILYBB 10/09/22 10/09/22 History release levothyroxine 75 mcg tablet 75 mcg PO DAILYBB 10/09/22 10/09/22 History losartan 50 mg tablet 50 mg PO BID 10/09/22 10/09/22 History melatonin 5 mg tablet 5 mg PO HS 10/09/22 10/09/22 History polyethylene glycol 3350 17 17 g PO DAILY PRN Constipation 10/09/22 10/09/22 History gram/dose oral powder (Miralax) sennosides 8.6 mg tablet (senna) 8.6 mg PO DAILY PRN Constipation 10/09/22 10/09/22 History sodium chloride 1,000 mg soluble 1,000 mg PO QAM 10/09/22 10/09/22 History tablet triamcinolone acetonide 0.1 % 1 applic topical BID 10/09/22 10/09/22 History topical cream Patient History Medical History (Updated 10/10/22 @ 13:25 by Vish Jerry, ) CVA (cerebral vascular accident) GERD (gastroesophageal reflux disease) History of CVA (cerebrovascular accident) HLD (hyperlipidemia) HTN (hypertension) Hypothyroidism No pertinent family history Stroke-like symptoms Surgical History No pertinent past surgical history Social History Smoking Status: Never smoker Hx Alcohol Use: No Hx Substance Use: No Preferred Language: Korean Communication Ability: Effective 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 Other Information That Helps Us Care for You: No Feels Safe at Home: Yes Safety Concerns: Feels Safe At This Time Assistive Devices: Denture - Upper and Wheelchair Physical Exam Physical Exam: Patient was seen and examined on televideo. She is lethargic but arouses to voice. Left facial droop at rest. speech is non fluent and dysarthric. Abrasion on right side of tongue. tongue midline. Eyes midline. Moving right arm and right leg. No movement on left side. Results & Data Vital Signs (Past 12 Hours) Vital Signs Temp Pulse Pulse Resp BP Pulse Ox O2 Del Method 10/10/22 12:13 36.5 C 61 19 144/84 H 98 Room Air 10/10/22 08:00 58 L 10/10/22 08:27 36.5 C 64 18 130/61 97 Room Air 10/10/22 04:03 36.8 C 60 16 150/108 H 96 Room Air 10/10/22 01:07 53 L 10/10/22 00:51 36.6 C 66 16 175/73 H 97 Room Air Diagnostic Findings MRI brain reviewed. Large chronic right MCA ischemic stroke with no acute stroke.
--- NOTE | 2022-10-10 12:41 | Hospitalist Progress Note ---
Date of Service October 10, 2022 Assessment & Plan (1) Seizure: (2) Chronic right arterial ischemic stroke, MCA (middle cerebral artery): (3) HLD (hyperlipidemia): (4) HTN (hypertension): (5) History of CVA (cerebrovascular accident): (6) Hypothyroidism: Plan 87 year old female with history of large right MCA ischemic stroke status post abdominal foraminal presented November 2021 with residual left-sided hemiparesis status post PEG presented to the ED with an episode of seizure at home MRI brain- No acute findings in the head/brain. CTA head: No acute large vessel occlusion. 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 Severe intracranial internal carotid artery stenosis. Severe left and moderate right vertebral artery narrowing. CTA neck- Calcified plaque at the left carotid bifurcation with severe stenosis of the proximal left internal carotid artery, 90% narrowed. Mild narrowing of the dominant right vertebral artery at the C1 level. Mild, age indeterminate compression deformity of the T1 vertebral body. Seizure: 1st episode, likely related to her prior CVA, patient is now back to baseline. - Seen by neuro and recommended continuing keppra 500 mg bid indefinitely via PEG tube - Stroke work up negative with no acute findings. Images as above H/o R MCA CVA s/p thrombectomy 11/2021 with residual hemiparesis- Continue aspirin, statin. CTA head and neck with 90% stenosis of left ICA which is stable from 12/15 and family is aware of it and states she was seen by vascular surgery in the past but not deemed fit for surgery. S/p PEG tube after stroke-gets nutrition via PEG tube as well as oral. Continue tube feed and oral nutrition. HTN: Continue amlodipine and losartan Hypothyroidism: Continue Synthroid Abnormal UA-rule out UTI. Continue ceftriaxone pending final blood and urine culture results Disposition: Anticipate discharge tomorrow if urine cultures available Updated daughter at bedside DVT prophylaxis-subcu Lovenox Admission and Anticipated Discharge Date Admission Date: October 09, 2022 Subjective Patient was seen and examined bedside in presence of her daughter. She is back to her baseline. No new issues. No fever, chills, chest pain or shortness of no nausea or vomiting Review of Systems Review of Systems: All systems reviewed & are unremarkable except as noted in Subjective Physical Exam Physical Exam: General: Lying comfortably in bed, not in distress, on room air HEENT: EOMI, JMAES, MMM Chest: Clear breath sounds bilaterally, no wheezes or crackles CVS: Regular rate and rhythm, normal heart sounds, no murmur Abdomen: Soft, non tender, not distended, normal bowel sounds, PEG tube noted Neuro: Awake, alert, oriented, answering simple questions, chronic left-sided hemiplegia Extremities: No cyanosis, clubbing or edema Results & Data Results & Data Vital Signs (Past 12 Hours) Vital Signs Temp Pulse Pulse Resp BP Pulse Ox O2 Del Method 10/10/22 12:13 36.5 C 61 19 144/84 H 98 Room Air 10/10/22 08:00 58 L 10/10/22 08:27 36.5 C 64 18 130/61 97 Room Air 10/10/22 04:03 36.8 C 60 16 150/108 H 96 Room Air 10/10/22 01:07 53 L 10/10/22 00:51 36.6 C 66 16 175/73 H 97 Room Air Laboratory Results Short CBC 10/09/22 10/10/22 Range/Units 18:57 06:12 WBC 11.75 H 7.53 (4.8-10.8) K/ul Hgb 13.8 13.0 (12.0-16.0) g/dl Hct 41.5 38.9 (37.0-47.0) % Plt Count 259 217 (130-400) K/uL [facility] 10/09/22 10/10/22 18:57 06:12 Sodium 138 139 Potassium 4.3 4.0 Chloride 105 107 Carbon Dioxide 26 24 BUN 26 H 20 Creatinine 0.68 0.50 L Glucose 116 H 85 Calcium 9.1 9.4 Liver Function 10/09/22 Range/Units 18:57 Total Bilirubin 0.5 (0.2-1.0) mg/dl AST 17 (13-39) U/L ALT 29 (7-52) U/L Alkaline Phosphatase 118 H (34-104) U/L Albumin 4.0 (3.4-5.0) gm/dl Urine 10/09/22 Range/Units 22:24 Urine Color Yellow Urine Appearance Turbid A (Clear) Urine pH 7.0 (4.5-7.5) Ur Specific [place] 1.039 H (1.000-1.030) Urine Protein Trace H (Negative) Urine Glucose (UA) Negative (Negative) Diagnostic Findings Chest X-Ray 10/09/22 18:52 SINGLE VIEW CHEST CLINICAL HISTORY: Neurological deficit. Stroke like symptoms. FINDINGS: An AP, portable, upright chest radiograph is obtained. No prior studies are available for comparison at the time of dictation. The examination is degraded by portable technique and patient rotation. An electronic device projects over the left lower chest. The heart is mildly enlarged noting atherosclerotic calcification of the thoracic aorta. The pulmonary vasculature is noncongested. There are low lung volumes with bibasilar atelectasis. The lungs and pleural spaces are otherwise clear. No pneumothorax is seen. The skeletal structures are osteopenic. The bony thorax is grossly intact. IMPRESSION: Cardiomegaly with no acute cardiopulmonary abnormality. ACT 112: Negative or not required by law. Electronically signed by: Benny White M.D. 10/10/2022 8:12 AM Medications Administered Current Inpatient Medications Amlodipine Besylate (Amlodipine Besylate 5 Mg Tab) 2.5 mg PO [facility] Stop: 11/09/22 08:59 Last Admin: 10/10/22 07:27 Dose: 2.5 mg Aspirin (Aspirin 81 Mg Ectab) 81 mg PO [facility] Stop: 11/09/22 08:59 Last Admin: 10/10/22 07:28 Dose: 81 mg Atorvastatin Calcium (Atorvastatin 40 Mg Tab) 40 mg PO [facility] Stop: 11/09/22 08:59 Last Admin: 10/10/22 07:28 Dose: 40 mg Cyanocobalamin (Cyanocobalamin (B-12) 500 Mcg Tablet) 500 mcg PO [facility] Stop: 11/09/22 08:59 Last Admin: 10/10/22 07:29 Dose: 500 mcg Docusate Sodium (Docusate Sodium 100 Mg Cap) 100 mg PO DAILY PRN PRN Reason: Constipation Stop: 11/08/22 23:22 Enoxaparin Sodium (Enoxaparin Inj 40 Mg/0.4 Ml Syr) 40 mg SQ [facility] Stop: 11/10/22 08:59 Enteral Nutritional Formula (Fibersource Hn 1.2 Hakeem 1000 Ml Bag) 1,000 ml GT .See Protocol [facility]ORA; Protocol Stop: 11/09/22 10:14 Fluoxetine HCl (Fluoxetine Hcl 10 Mg Cap) 30 mg PO QAM [facility] Stop: 11/09/22 08:59 Last Admin: 10/10/22 07:28 Dose: 30 mg Fluticasone Propionate (Fluticasone Propionate Na Spr 16 Gm Btl) 1 sprays NA QAM [facility] Stop: 11/09/22 08:59 Last Admin: 10/10/22 07:30 Dose: 1 sprays Folic Acid (Folic Acid 1 Mg Tab) 1 mg PO BID [facility] Stop: 11/09/22 08:59 Last Admin: 10/10/22 07:30 Dose: 1 mg Hydrocortisone (Hydrocortisone Hc 2.5% Crm 30gm Tube) 1 appln EXT BID [facility] Stop: 11/09/22 08:59 Last Admin: 10/10/22 07:31 Dose: 1 appln Acetaminophen (Ofirmev) 1,000 mg in 100 mls @ 400 mls/hr IV Q8H PRN PRN Reason: fever/pain Stop: 10/12/22 23:22 Ceftriaxone Sodium 1,000 mg/ (Dextrose) 50 mls @ 100 mls/hr IV Q24H [facility]; Protocol Stop: 10/15/22 13:59 Last Infusion: 10/10/22 14:10 Dose: Infused Levetiracetam (Levetiracetam Soln 500 Mg/5 Ml Udp) 500 mg PEG BID [facility] Stop: 11/09/22 08:59 Last Admin: 10/10/22 07:29 Dose: 500 mg Levothyroxine Sodium (Levothyroxine Sodium 75 Mcg Tablet) 75 mcg PO DAILYBB [facility] Stop: 11/09/22 06:29 Last Admin: 10/10/22 05:16 Dose: 75 mcg Lorazepam (Lorazepam 2 Mg/1 Ml Vial) 1 mg IV Q10M PRN PRN Reason: seizures Stop: 11/08/22 21:24 Losartan Potassium (Losartan Potassium 50 Mg Tab) 50 mg PO BID [facility] Stop: 11/09/22 08:59 Last Admin: 10/10/22 07:29 Dose: 50 mg Melatonin (Melatonin 3 Mg Tab) 4.5 mg PO HS [facility] Stop: 11/09/22 20:59 Pantoprazole Sodium (Pantoprazole 40 Mg Tab) 40 mg PO DAILYBB [facility] Stop: 11/09/22 06:29 Last Admin: 10/10/22 05:16 Dose: 40 mg Sennosides (Senna 8.6 Mg Tab) 8.6 mg PO DAILY PRN PRN Reason: Constipation Stop: 11/08/22 23:22 Sterile Water (Tube Feeding Water Flush) 60 ml PEG Q4H [facility] Stop: 11/09/22 10:14 Last Admin: 10/10/22 14:31 Dose: 60 ml Triamcinolone Acetonide (Triamcinolone Acet 0.1% Cr 15 Gm Tube) 1 appln TOP BID [facility] Stop: 11/09/22 08:59 Last Admin: 10/10/22 07:31 Dose: 1 appln
--- NOTE | 2022-10-10 13:11 | Electrocardiogram Report ---
Test Reason : Blood Pressure : / mmHG Vent. Rate : 077 BPM Atrial Rate : 077 BPM P-R Int : 136 ms QRS Dur : 074 ms QT Int : 420 ms P-R-T Axes : 018 -21 034 degrees QTc Int : 475 ms Normal sinus rhythm Poor R wave progression, consider anterior IA vs. lead placement vs. LVH Abnormal ECG No previous ECGs available Confirmed by Nigel Gao ([id number]) on 10/10/2022 1:11:11 PM Referred By: REFERRED SELF Confirmed By:Nigel Gao
--- NOTE | 2022-10-10 13:21 | Electrocardiogram Report ---
Test Reason : Blood Pressure : / mmHG Vent. Rate : 070 BPM Atrial Rate : 070 BPM P-R Int : 156 ms QRS Dur : 068 ms QT Int : 448 ms P-R-T Axes : 043 -24 024 degrees QTc Int : 483 ms Poor data quality, interpretation may be adversely affected Normal sinus rhythm Low voltage QRS Inferior infarct , age undetermined Abnormal ECG When compared with ECG of 09-OCT-2022 19:14, (unconfirmed) No significant change was found Confirmed by Nigel Gao ([id number]) on 10/10/2022 1:20:50 PM Referred By: REFERRED SELF Confirmed By:Nigel Gao
[2022-10-10] MEDS: cefTRIAXone SODIUM 1,000 MG in DEXTROSE 5% AD-VAN 50 ML IV SCH (13:40)
[2022-10-10] MEDS ORDERED: MELATONIN 3 MG TAB PO SCH (21:00)
[2022-10-11] MEDS: TUBE FEEDING WATER FLUSH PEG SCH ×4 (02:17→14:04)
[2022-10-11] MEDS: PANTOprazole 40 MG TAB PO SCH (06:21)
[2022-10-11] MEDS: LEVOTHYROXINE SODIUM 75 MCG TABLET PO SCH (06:21)
[2022-10-11 06:45] LABS: Albumin Globulin Ratio 1.3 (0.9-2); Albumin Level 3.4 gm/dl (3.4-5.0); BUN Creatinine Ratio 39.3 (10-20); Bilirubin,Total 0.4 mg/dl (0.2-1.0); Calcium 8.9 mg/dl (8.6-10.3); Creatinine Clr Calc Pharmacy 60.2 ml/min; Est GFR (African American) 97.9 ml/min; Est GFR (Non-African American) 84.4 ml/min; Globulin 2.7 gm/dl (2.5-4.0); Magnesium 1.8 mg/dl (1.7-2.4); Phosphorus 3.6 mg/dl (2.5-4.9); Potassium 3.9 mmol/L (3.5-5.1); Total Protein 6.1 gm/dl (6.0-8.3)
[2022-10-11] MEDS: FLUoxetine HCL 10 MG CAP PO SCH (07:25)
[2022-10-11] MEDS: FOLIC ACID 1 MG TAB PO SCH (07:26)
[2022-10-11] MEDS: LOSARTAN POTASSIUM 50 MG TAB PO SCH (07:26)
[2022-10-11] MEDS: FLUTICASONE PROPIONATE NA SPR 16 GM BTL SCH (07:26)
[2022-10-11] MEDS: CYANOCOBALAMIN (B-12) 500 MCG TABLET PO SCH (07:26)
[2022-10-11] MEDS: amLODIPine BESYLATE 5 MG TAB PO SCH (07:26)
[2022-10-11] MEDS: ATORVASTATIN 40 MG TAB PO SCH (07:26)
[2022-10-11] MEDS: ASPIRIN 81 MG ECTAB PO SCH (07:26)
[2022-10-11] MEDS: TRIAMCINOLONE ACET 0.1% CR 15 GM TUBE TOP SCH (07:28)
[2022-10-11] MEDS: HYDROCORTISONE HC 2.5% CRM 30GM TUBE EXT SCH (07:28)
[2022-10-11] MEDS ORDERED: ENOXAPARIN INJ 40 MG/0.4 ML SYR SQ SCH (09:00)
--- NOTE | 2022-10-11 11:37 | Discharge Summary ---
Date of Service October 11, 2022 Admission HPI Per Admitting Provider 87 year old that presents with family after being found to be unresponsive at home. At 1715 she was leaning back in her wheelchair and she was diaphoretic and not lifting her head up. Her eyes were rolling back and became unresponsive. She was not consistency answering questions. She was ok earlier today and then had an acute change. She is mostly wheelchair bound at baseline. Pt daughter, Gavi reports it appears she has returned to her normal baseline mental status. She was able to answer some questions on her own to me, but is AAOx1. She is unaware as to what brought her in to the hospital today and does not recall any of the events from earlier this evening. No reported seizures. 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 Patient is on ASA for secondary stroke prevention as well as Lipitor. 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 She has been reportedly declining since her stroke in 2021 for which she was admitted for two weeks and then went to [facility] for two weeks therafter. She does have moderate baseline cognitive deficits post stroke, with intermittent periods of delirium and confusion. After her stroke she had a PEG tube placed and receives Bolus feedings with Jevity 1.2. Feeding tube is utilized for feedings and medications. She takes 4-5 8 oz containers per day. Most recent swallow study was in February 2022. She is able to eat pureed and drinks coffee orally, small sips. She does have some coughing and drooling with eating. She was following with inocencio ROTHMAN in [facility] for management of her PEG tube but was discharged from care in May 2022 as she was tolerative the tube without issues, leakage, or inflammation. Pt does have a cardiac LINQ Med[employer] device that was placed in [place] and reportedly is for evaluation for arrhythmias and AF. No known events reported by daughter. No tobacco, alcohol, or recreational drug use. Mild Leukocytosis; WBC 111.75, otherwise labs unremarkable. Family is trying to obtain respite care for an upcoming trip. Confirmed patient is DNR/DNI. No fever or chills recently, no chest pain, or known palpitations, no abdominal pain, Nausea or vomiting, no recent travel. Pt does have diarrhea from [employer]. No malodorous stool or mucus noted. Patient will be admitted for further evaluation and management. Please see A/P for further details. Admission Exam Per Admitting Provider Neuro: AAOx4, PERRLA, no aphagia, memory changes, CNII-XII grossly intact HEENT: head normocephalic, moist mucus membranes CV: S1/S2, (-) M/G/R, (-) edema, cap refill < 3 seconds Resp: Lungs CTA in all shoemaker. On RA GI: Abdomen S/NT/ND, Ax4 bowel sounds, (-) CVA tenderness Musculoskeletal: 5/5 B/L UE strength, 5/5 B/L LE strength. No gait disturbance Skin: (-) rashes , (-) erythema. Psych: euthymic mood Principal Diagnosis New onset seizure, UTI Discharge Exam General: Lying comfortably in bed, not in distress, on room air HEENT: EOMI, JAMES, MMM Chest: Clear breath sounds bilaterally, no wheezes or crackles CVS: Regular rate and rhythm, normal heart sounds, no murmur Abdomen: Soft, non tender, not distended, normal bowel sounds, PEG tube noted Neuro: Awake, alert, oriented, answering simple questions, chronic left-sided hemiparesis Extremities: No cyanosis, clubbing or edema Discharge Data Allergies Allergy/AdvReac Type Severity Reaction Status Date / Time allopurinol Allergy Unknown Verified 10/09/22 19:28 lisinopril Allergy Cough Verified 10/09/22 19:28 Consultations 10/09/22 19:45 ED Decision to Admit Stat 10/09/22 23:23 Consult Neurology Routine Ordered Studies 10/09/22 18:52 CT angio head w con Stat CT angio neck with con Stat CT head/brain wo con Stat 10/09/22 21:24 MRI Brain [MR brain seizure wo/w con] Stat Laboratory Results WBC 7.53 K/ul (4.8-10.8) 10/10/22 06:12 RBC 4.51 M/uL (4.20-5.40) 10/10/22 06:12 Hgb 13.0 g/dl (12.0-16.0) 10/10/22 06:12 POC Hgb 14.6 g/dl (12.0-16.0) 10/09/22 19:00 Hct 38.9 % (37.0-47.0) 10/10/22 06:12 POC Hct 43 % (37-47) 10/09/22 19:00 MCV 86.3 fL (80.0-100.0) 10/10/22 06:12 MCH 28.8 pg (25.0-34.0) 10/10/22 06:12 MCHC 33.4 g/dL (32.0-36.0) 10/10/22 06:12 RDW Std Deviation 41.4 fL (36.4-46.3) 10/10/22 06:12 RDW Coeff of Cheryl 13.3 % (11.5-14.5) 10/10/22 06:12 Plt Count 217 K/uL (130-400) 10/10/22 06:12 MPV 11.1 fL (9.4-12.4) 10/10/22 06:12 Immature Gran % (Auto) 0.9 % 10/10/22 06:12 Neut % (Auto) 66.7 % 10/10/22 06:12 Lymph % (Auto) 17.8 % 10/10/22 06:12 Island % (Auto) 10.0 % 10/10/22 06:12 Eos % (Auto) 4.1 % 10/10/22 06:12 Baso % (Auto) 0.5 % 10/10/22 06:12 Neut # (Auto) 5.02 K/uL (1.40-6.50) 10/10/22 06:12 Lymph # (Auto) 1.34 K/uL (1.2-3.4) 10/10/22 06:12 Island # (Auto) 0.75 K/uL (0.11-0.59) H 10/10/22 06:12 Eos # (Auto) 0.31 K/uL (0-0.50) 10/10/22 06:12 Baso # (Auto) 0.04 K/uL (0-0.2) 10/10/22 06:12 Immature Gran # (Auto) 0.07 K/uL (0.01-0.20) 10/10/22 06:12 PT 10.6 Seconds (9.0-12.0) 10/09/22 18:57 INR 1.0 (0.9-1.1) 10/09/22 18:57 APTT 24.8 Seconds (21.0-31.0) 10/09/22 18:57 PTT Ratio 0.9 10/09/22 18:57 POC Sodium 140 mmol/L (135-144) 10/09/22 19:00 Sodium 139 mmol/L (136-145) 10/11/22 06:07 POC Potassium 4.2 mmol/L (3.3-5.0) 10/09/22 19:00 Potassium 3.9 mmol/L (3.5-5.1) 10/11/22 06:07 POC Chloride 104 mmol/L (101-112) 10/09/22 19:00 Chloride 109 mmol/L (98-107) H 10/11/22 06:07 Carbon Dioxide 24 mmol/L (21-32) 10/11/22 06:07 POC Total CO2 24 mmol/L (24-31) 10/09/22 19:00 Anion Gap 6 (3-11) 10/11/22 06:07 POC Anion Gap 18.0 mmol/L (16-25) 10/09/22 19:00 POC BUN 25 mg/dl (7-18) H 10/09/22 19:00 BUN 22 mg/dl (6-23) 10/11/22 06:07 Creatinine 0.56 mg/dl (0.6-1.2) L 10/11/22 06:07 POC Creatinine 0.6 mg/dl (0.6-1.3) 10/09/22 19:00 Est Cr Clr Drug Dosing 60.2 ml/min 10/11/22 06:07 Est GFR ( Amer) 97.9 ml/min 10/11/22 06:07 Est GFR (Non-Af Amer) 84.4 ml/min 10/11/22 06:07 BUN/Creatinine Ratio 39.3 (10-20) H 10/11/22 06:07 Glucose 117 mg/dl (70-99(Fasting)) H 10/11/22 06:07 POC Glucose 117 mg/dl (70-99) H 10/09/22 18:51 POC Glucose (other) 116 mg/dl (70-99) H 10/09/22 19:00 Lactate 1.3 mmol/L (0.4-2.0) 10/09/22 23:54 Calcium 8.9 mg/dl (8.6-10.3) 10/11/22 06:07 POC Ioniz Calcium Mahendra 1.13 mmol/l (1.12-1.32) 10/09/22 19:00 Phosphorus 3.6 mg/dl (2.5-4.9) 10/11/22 06:07 Magnesium 1.8 mg/dl (1.7-2.4) 10/11/22 06:07 Total Bilirubin 0.4 mg/dl (0.2-1.0) 10/11/22 06:07 AST 13 U/L (13-39) 10/11/22 06:07 ALT 21 U/L (7-52) 10/11/22 06:07 Alkaline Phosphatase 96 U/L (34-104) 10/11/22 06:07 Troponin I High Sens 8.1 pg/ml (0-14) 10/09/22 18:57 Total Protein 6.1 gm/dl (6.0-8.3) 10/11/22 06:07 Albumin 3.4 gm/dl (3.4-5.0) 10/11/22 06:07 Globulin 2.7 gm/dl (2.5-4.0) 10/11/22 06:07 Albumin/Globulin Ratio 1.3 (0.9-2) 10/11/22 06:07 Urine Color Yellow 10/09/22 22:24 Urine Appearance Turbid (Clear) A 10/09/22 22:24 Urine pH 7.0 (4.5-7.5) 10/09/22 22:24 Ur Specific Bowen 1.039 (1.000-1.030) H 10/09/22 22:24 Urine Protein Trace (Negative) H 10/09/22 22:24 Urine Glucose (UA) Negative (Negative) 10/09/22 22:24 Urine Ketones Negative (Negative) 10/09/22 22:24 Urine Blood 1+ (Negative) H 10/09/22 22:24 Urine Nitrite Negative (Negative) 10/09/22 22:24 Urine Bilirubin Negative (Negative) 10/09/22 22:24 Urine Urobilinogen Negative (Negative) 10/09/22 22:24 Ur Leukocyte Esterase 3+ (Negative) H 10/09/22 22:24 Urine WBC (Auto) >30 /hpf (0-5) H 10/09/22 22:24 Urine RBC (Auto) 0-4 /hpf (0-4) 10/09/22 22:24 U Hyaline Cast (Auto) 10-30 /lpf (0-5) H 10/09/22 22:24 U Epithel Cells (Auto) >30 /lpf (0-5) H 10/09/22 22:24 Urine Bacteria (Auto) 1+ (Negative) H 10/09/22 22:24 SARS-CoV-2, RNA, NAAT NEGATIVE (NEGATIVE) 10/09/22 19:56 Blood Type A Positive 10/09/22 18:57 Antibody Screen NEGATIVE 10/09/22 18:57 Impressions Chest X-Ray 10/09/22 18:52 SINGLE VIEW CHEST CLINICAL HISTORY: Neurological deficit. Stroke like symptoms. FINDINGS: An AP, portable, upright chest radiograph is obtained. No prior studies are available for comparison at the time of dictation. The examination is degraded by portable technique and patient rotation. An electronic device projects over the left lower chest. The heart is mildly enlarged noting atherosclerotic calcification of the thoracic aorta. The pulmonary vasculature is noncongested. There are low lung volumes with bibasilar atelectasis. The lungs and pleural spaces are otherwise clear. No pneumothorax is seen. The skeletal structures are osteopenic. The bony thorax is grossly intact. IMPRESSION: Cardiomegaly with no acute cardiopulmonary abnormality. ACT 112: Negative or not required by law. Electronically signed by: Benny White M.D. 10/10/2022 8:[address] 10/09/22 18:52 CR Exam(s): CT HEAD Without Contrast EXAM: CT Head Without Intravenous Contrast CLINICAL HISTORY: Reason for exam: neuro deficit, acute stroke suspected. TECHNIQUE: Axial computed tomography images of the head/brain without intravenous contrast. CTDI is 46.63 mGy and DLP is 1020.79 mGy-cm. Automated exposure control was utilized for the study. A dose lowering technique was utilized adhering to the principles of ALARA. COMPARISON: No relevant prior studies available. 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 No clear acute large vessel territory infarction. No intracranial hemorrhage or mass-effect. Atherosclerosis of skull base arteries. The calvarium is intact. No mastoid or paranasal sinus effusion. Left ocular lens prosthesis. IMPRESSION: No acute intracranial process. Communications: Call Doctor Stroke Electronically signed by: Iker Andujar M.D. 10/09/22 19:26 PM Head CTA 10/09/22 18:52 CR Exam(s): CTA HEAD With Contrast IV Amt: 120ML OPTIRAY 320 EXAM: CT Angiography Head With Intravenous Contrast CLINICAL HISTORY: Reason for exam: neuro deficit, acute stroke suspected. TECHNIQUE: Axial computed tomographic angiography images of the head with intravenous contrast. CTDI is 46.63 mGy and DLP is 1020.79 mGy-cm. Automated exposure control was utilized for the study. A dose lowering technique was utilized adhering to the principles of ALARA. MIP reconstructed images were created and reviewed. CONTRAST: Patient received 120ML OPTIRAY 320 of IV contrast COMPARISON: Noncontrast exam of same date. FINDINGS: Chronically atretic branches of the right middle cerebral artery related to the large chronic infarct as seen on concurrent noncontrast exam. The left MCA demonstrates no acute thromboembolism. There is extensive atherosclerosis of the intracranial internal carotid arteries with severe bilateral supraclinoid segment narrowing and moderate stenosis elsewhere. Severe left and moderate right intracranial vertebral artery narrowing. Patent basilar artery. IMPRESSION: No acute large vessel occlusion. 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 Severe intracranial internal carotid artery stenosis. Severe left and moderate right vertebral artery narrowing. Communications: Call Doctor Stroke Electronically signed by: Iker Andujar M.D. 10/09/22 19:32 PM Neck CTA 10/09/22 18:52 CR Exam(s): CTA NECK With Contrast IV Amt: 120ML OPTIRAY 320 EXAM: CT Angiography Neck With Intravenous Contrast CLINICAL HISTORY: Reason for exam: neuro deficit, acute stroke suspected. TECHNIQUE: Routine carotid CT angiography protocol was performed with intravenous contrast. NASCET criteria using the distal ICAs for comparison were used for evaluation of stenoses. CTDI is 12.46 mGy and DLP is 1020.79 mGy-cm. Automated exposure control was utilized for the study. A dose lowering technique was utilized adhering to the principles of ALARA. MIP reconstructed images were created and reviewed. CONTRAST: Patient received 120ML OPTIRAY 320 of IV contrast COMPARISON: None. FINDINGS: Calcified plaque at the left carotid bifurcation with severe stenosis of the proximal left internal carotid artery, 90% narrowed. Moderate narrowing of the proximal left external carotid artery as well. Plaque at the right carotid bifurcation is not associated with significant narrowing. Mild narrowing of the dominant right vertebral artery at the C1 level. 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 Mild plaque at the origin without narrowing. Mild, age indeterminate compression deformity of the T1 vertebral body. No retropulsion. Multilevel spondylosis. CAROTID STENOSIS REFERENCE USING NASCET CRITERIA: % ICA stenosis = (1 - narrowest ICA diameter/diameter of distal cervical ICA) x 100. Mild - <50% stenosis. Moderate - 50-69% stenosis. Severe - 70-94% stenosis. Near occlusion - 95-99% stenosis. Occluded - 100% stenosis. IMPRESSION: Calcified plaque at the left carotid bifurcation with severe stenosis of the proximal left internal carotid artery, 90% narrowed. Mild narrowing of the dominant right vertebral artery at the C1 level. Mild, age indeterminate compression deformity of the T1 vertebral body. Communications: Call Doctor Stroke Electronically signed by: Iker Andujar M.D. 10/09/22 19:39 PM Brain MRI 10/09/22 21:24 Exam(s): MRI HEAD IV Amt: 5.5mL Gadavist EXAM: MR Head With Intravenous Contrast CLINICAL HISTORY: Seizure. TECHNIQUE: Magnetic resonance images of the head/brain with intravenous contrast in multiple planes. CONTRAST: Patient received 5.5mL Gadavist of IV contrast COMPARISON: CT head 10/09/2022 FINDINGS: Brain: Chronic infarct of the right MCA territory. No acute infarct. No intracranial hemorrhage, mass-effect or midline shift. Mild periventricular white matter T2/flair signal abnormalities are most consistent with chronic microangiopathy. Ventricles: Unremarkable. No ventriculomegaly. Bones/joints: Unremarkable. Sinuses: Unremarkable as visualized. No acute sinusitis. Mastoid air cells: Unremarkable as visualized. No mastoid effusion. Orbits: Unremarkable as visualized. IMPRESSION: No acute findings in the head/brain. Electronically signed by: Miya Mane MD 10/10/22 00:37 AM Orbit X-Ray 10/09/22 21:48 BONY ORBITS 3 VIEWS CLINICAL HISTORY: MRI clearance. FINDINGS: 3 views of the bony orbits are obtained. No prior studies are available for comparison at the time of dictation. There is no radiodense/metallic foreign body seen in the region of the bony orbits. The bony orbits are intact as imaged. The visualized paranasal sinuses and the mastoid air cells appear clear. The imaged calvarium appears intact. IMPRESSION: There is no radiodense/metallic foreign body seen in the region of the bony orbits. ACT 112: Negative or not required by law. Electronically signed by: Benny White M.D. 10/09/2022 10:08 PM Hospital Course (1) Seizure: (2) Chronic right arterial ischemic stroke, MCA (middle cerebral artery): (3) HLD (hyperlipidemia): (4) HTN (hypertension): (5) History of CVA (cerebrovascular accident): (6) Hypothyroidism: Plan 87 year old female with history of large right MCA ischemic stroke status post thrombectomy for M1 occlusion November 2021 with residual left-sided hemiparesis status post PEG presented to the ED with an episode of seizure at home. She was already at baseline in the ED. Stroke work up was negative for acute stroke or any acute findings. Seen by neurology and recommended keppra 500 bid indefinitely. UA was abnormal and she has been on empiric ceftriaxone. Her urine clx is showing pin point growth as of now. No fever, leucocytosis. Hemodynamically stable and at baseline status. She is comfortable and stable for discharge home. MRI brain- No acute findings in the head/brain. CTA head: No acute large vessel occlusion. 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 Severe intracranial internal carotid artery stenosis. Severe left and moderate right vertebral artery narrowing. CTA neck- Calcified plaque at the left carotid bifurcation with severe stenosis of the proximal left internal carotid artery, 90% narrowed. Mild narrowing of the dominant right vertebral artery at the C1 level. Mild, age indeterminate compression deformity of the T1 vertebral body. Seizure: 1st episode, likely related to her prior CVA, patient is now back to baseline. - Seen by neuro and recommended continuing keppra 500 mg bid indefinitely via PEG tube - Stroke work up negative with no acute findings. Images as above H/o R MCA CVA s/p thrombectomy 11/2021 with residual hemiparesis- Continue aspirin, statin. CTA head and neck with 90% stenosis of left ICA which is stable from 12/15 and family is aware of it and states she was seen by vascular surgery in the past but not deemed fit for surgery. S/p PEG tube after stroke-gets nutrition via PEG tube as well as oral. Continue tube feed and oral nutrition. HTN: Continue amlodipine and losartan Hypothyroidism: Continue Synthroid Abnormal UA-rule out UTI. Blood clx negative, urine clx with pinpoint growth. S/p ceftriaxone D2. Changed to vantin at discharge for 3 more days pending final clx results. I called her daughter Gavi over the phone to discuss the discharge plan but unable to reach. Total Time Total Time Spent Total Time Spent (In Minutes): 40 Discharge Plan Discharge Items Patient Disposition: Home - Self-Care Reason For Visit: SEPSIS, TACHY, POSS NEW ONSET SEIZ Discharge Diagnosis: New onset seizure, UTI Activity: Resume your previous activity Non-emergency contact: Primary Care Provider and Neurologist Call non-emergency contact if: you have any medication questions Follow-up/Referrals: Brock Stuart MD [Primary Care Provider] - Diet: Regular Addtl Attending Provider Instructions: Continue keppra 500 mg twice daily for your seizure. Continue cefpodoxime 1 tab twice daily for 3 more days for possible UTI Follow up with family doctor and neurology Pending Studies at Discharge: Yes Studies:: urine clx Stand-Alone Forms: My [employer], Smoking Cessation Medications and DC Order Prescriptions: New levetiracetam [Keppra] 100 mg/mL Solution 500 mg PEG BID Qty: 60 0RF cefpodoxime 200 mg tablet 200 mg feeding tube BID Qty: 6 0RF Rx Instructions: must administer with a meal/food, starting tomorrow Continued atorvastatin 40 mg tablet 40 mg PO QAM levothyroxine 75 mcg tablet 75 mcg PO DAILYBB hydrocortisone [Procto-Med HC] 2.5 % cream with perineal applicator 1 applic topical BID losartan 50 mg tablet 50 mg PO BID triamcinolone acetonide 0.1 % cream 1 applic TOPICAL BID cyanocobalamin (vitamin B-12) 500 mcg tablet 500 mcg PO QAM lansoprazole 15 mg capsule,delayed release(DR/EC) 15 mg PO DAILYBB folic acid 1 mg tablet 1 mg PO BID amlodipine 2.5 mg tablet 2.5 mg PO QAM fluoxetine 10 mg capsule 10 mg PO QAM fluoxetine 20 mg capsule 20 mg PO QAM melatonin 5 mg Tablet 5 mg PO HS aspirin 81 mg Tablet,Delayed Release (Dr/Ec) 81 mg PO QAM sodium chloride 1,000 mg Tablet,Soluble 1,000 mg PO QAM docusate sodium 100 mg Capsule 100 mg PO DAILY PRN (Reason: Constipation) polyethylene glycol 3350 [Miralax] 17 gram/dose Powder 17 g PO DAILY PRN (Reason: Constipation) fluticasone propionate 50 mcg/actuation spray,suspension 1 spray INTRANASAL QAM sennosides [senna] 8.6 mg Tablet 8.6 mg PO DAILY PRN (Reason: Constipation) Jevity 1.2 Hakeem 0.06 gram-1.2 kcal/mL Liquid 1 ea feeding tube Q4H Discharge Orders: Discharge Order (Routine); Ordered 10/11/22 Ordered By: Lonny Marte Admission Data Admit Date/Time: 10/09/22 23:12 Attending Provider: Lonny Marte Admit Provider: Ulises Saucedo Primary Care Provider: Brock Stuart Other Providers: Ulises Saucedo ; Liborio Webb ; Roger Swift ; Marely Cleaning ; Gen Gonzalez ; Marely Allen ; Henry Ferguson ; Vish Jerry ; Navdeep Cárdenas ; Lexy Whitmore ; Jeovany aMrtinez ; Joey Gallego ; Abbie Melendez ; Trevor Chaves Other Interventions: Discharge Summary Assessment (RN) Last Done: 10/11/22 12:16
[2022-10-11] MEDS: cefTRIAXone SODIUM 1,000 MG in DEXTROSE 5% AD-VAN 50 ML IV SCH (13:01)
== END 2022-10-11 15:28 | disposition home or self-care (01) | DRG 101 ==
LOC: 2E 18:40 → ED 18:40 → 2E 23:11 → OBSVTOIN 23:12

== ENCOUNTER 2025-04-12 19:27 | Inpatient (IN) ==
--- NOTE | 2025-04-12 19:48 | Emergency Department Note ---
Impression & Plan Pneumonia, Sepsis, Hypokalemia, Acidosis, lactic, Acute non-ST elevation myocardial infarction (NSTEMI), Leukocytosis, Acute UTI (urinary tract infection) ED Provider Note ED Provider Note NAME: RASTA WISE AGE:89 SEX: Female : 1935 ARRIVES VIA: EMS INFORMANT: Patient ED PROVIDER(s): Sandy Nolan CHIEF COMPLAINT: weakness HPI: 89-year-old female presents emergency room with complaints of altered mental status. Patient has been worsening over the last 2 days. Yesterday she had nausea and vomiting. She does do some eating orally, she also has tube feeds. Daughter states that she swallows poorly, so sometimes she is not really able to eat much and she has to be reminded to swallow so she does not choke. She states that today she seemed to have a depressed mental status. Her daughter came to feed her at lunch and she was having some jolting movements. Of note, she had what sounds like seizures before, sometimes with a UTI. Patient this evening had worsening mental status with not really waking up or interacting, complaining of some abdominal pain at times. Daughter was concerned that she was worse so brought her in to be seen. Reports that she is DNR/DNI with limited additional interventions. PAST MEDICAL HISTORY:See Below PAST SURGICAL HISTORY:See Below FAMILY HISTORY:See Below SOCIAL HISTORY:See Below HOME MEDICATIONS:See Below ALLERGIES:See Below VITALS:See Below PHYSICAL EXAMINATION: GENERAL: alert, well appearing, well nourished, no distress, non-toxic NECK: supple, no nuchal rigidity, no adenopathy, non-tender LUNGS: Clear to auscultation. Normal chest wall mechanics, no w/r/r HEART: no murmurs, S1 normal and S2 normal ABDOMEN: abdomen soft, non-tender, normo-active bowel sounds, no masses, no rebound or guarding. BACK: Back is symmetrical on inspection and there is no deformity, no midline tenderness, no CVA tenderness. SKIN: no rashes, petechiae, orbruising UPPER EXTREMITIES: upper extremities are grossly normal. FROM, nml pulses b/l. LOWER EXTREMITIES: No pitting edema. FROM, nml pulses b/l. NEURO EXAM: Normal sensorium, cranial nerves II-XII grossly intact, normal speech, no facial droop,nogross weakness of arms, no gross weakness of legs. Gross sensation intact. No ataxia. Vital Signs: reviewed and remarkable Differential Diagnosis: Infection, hypoglycemia, electrolyte abnormalities, overdose, toxicologic, cardiac sources, intracerebral event, neurologic, trauma, as well as other pathologies. MEDICAL DECISION MAKIN-year-old female presents emergency room with complaints of altered mental status. Spoke with patient's family about goals of care. Their goal is patient comfort, not necessarily survivability. They confirmed the patient's DNR/DNI status as well as her limited additional interventions wishes. Patient with significantly elevated troponin in the emergency room. Patient's family does not wish to pursue any interventional cardiology procedures. They would not be agreeable to blood thinners like heparin. They are agreeable to antibiotics fluids and medications as needed to treat her symptoms. Spoke with family about results and plan for admission, they are agreeable. Spoke with hospitalist, they will admit. Consultation(s): Hospitalist ER Treatment Provided: See below Diagnostics Interpreted By Me: -ECG: EKG shows sinus tach. 108 with poor baseline. Some T wave inversions in lead III. Some ST depression in V6. -Cardiac Monitoring: An order was placed for continuous cardiac monitoring. The monitor shows a rate of 102 with Sinus tach rhythm. -Laboratory studies: As stated above and show below. -Imaging studies:CXR - no acute, CT head - no acute, old infarct; CT abd - constipated, fx femur, PNA Triage Nursing Note Reviewed Prior/Outside Records Reviewed Past Med/Surg History Problem List (Updated 04/12/25 @ 23:48 by Sandi Nolan DO) Acute UTI (urinary tract infection) (Acute) Pneumonia (Acute) Leukocytosis (Acute) Acute non-ST elevation myocardial infarction (NSTEMI) (Acute) Acidosis, lactic (Acute) Hypokalemia (Acute) Sepsis (Acute) Chronic right arterial ischemic stroke, MCA (middle cerebral artery) Stroke-like symptoms Hypothyroidism History of CVA (cerebrovascular accident) GERD (gastroesophageal reflux disease) CVA (cerebral vascular accident) Medical History (Updated 04/12/25 @ 23:48 by Sandi Nolan DO) HTN (hypertension) No pertinent family history HLD (hyperlipidemia) Surgical History No pertinent past surgical history Social History Smoking Status: Unknown if ever smoked Hx Alcohol Use: No Hx Substance Use: No Preferred Language: Lithuanian Communication Ability: Effective 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 Feels Safe at Home: Yes Assistive Devices: Denture - Upper and Wheelchair Allergies Allergies Allergy/AdvReac Type Severity Reaction Status Date / Time allopurinol Allergy Unknown Unknown Verified 04/12/25 21:28 lisinopril AdvReac Intermediate Cough Verified 04/12/25 21:28 Home Meds Home Medications Medication Instructions Recorded Confirmed amlodipine 2.5 mg tablet 2.5 mg feeding tube QAM 10/09/22 04/12/25 aspirin 81 mg tablet,delayed 81 mg feeding tube QAM 10/09/22 04/12/25 release atorvastatin 40 mg tablet 40 mg feeding tube HS 10/09/22 04/12/25 fluoxetine 10 mg capsule 10 mg feeding tube QAM 10/09/22 04/12/25 lactose-reduced food with fiber 1 ea feeding tube BID 10/09/22 04/12/25 0.06 gram-1.2 kcal/mL oral liquid (Jevity 1.2 Hakeem) levothyroxine 75 mcg tablet 75 mcg feeding tube DAILYBB 10/09/22 04/12/25 sodium chloride 1,000 mg soluble 1,000 mg feeding tube QAM 10/09/22 04/12/25 tablet acetaminophen 325 mg tablet 650 mg feeding tube Q6H PRN 04/12/25 04/12/25 (Tylenol) PAIN/FEVER omeprazole 20 mg tablet,delayed 20 mg DAILY 04/12/25 04/12/25 release prednisone 5 mg tablet 5 mg feeding tube DAILY 04/12/25 04/12/25 promethazine 25 mg/mL injection 25 mg IM Q6H PRN NAUSEA/VOMITING 04/12/25 04/12/25 solution (Phenergan) Previous Rx's Medication Instructions Recorded levetiracetam 100 mg/mL oral 500 mg (5 mL) PEG BID #60 mL 10/11/22 solution (Keppra) Results & Data (ED) Vital Signs Vital Signs - 24 hr 04/12/25 19:47 04/12/25 19:49 04/12/25 19:49 Temperature 38.4 C H 38.4 C H Temperature Source Axillary Axillary Pulse Rate 111 H 115 H Pulse Rate [Finger] 115 H Pulse Rate from SpO2 Sensor Pulse Rhythm Regular Pulse Strength Normal Respiratory Rate 30 H 30 H Respiratory Effort / Characteristics Spontaneous Spontaneous Respiratory Depth Shallow Blood Pressure 106/52 L Blood Pressure [Right Arm] 106/52 L Blood Pressure Mean 70 Blood Pressure Mean [Right Arm] 70 Blood Pressure Position Lying Blood Pressure Position [Right Arm] Lying Pulse Oximetry 92 92 Oxygen Delivery Method Room Air Room Air Oxygen Flow Rate Sepsis Recent Fever Within 48 Hours Yes Sepsis New/Unexplained Change in Mental Status Yes Sepsis Action Taken by Nursing Physician Notified Oxygen Flow Rate - Titration Pulse Oximetry Post Tiitration 04/12/25 19:59 04/12/25 20:34 04/12/25 23:00 Temperature Temperature Source Pulse Rate 105 H 80 Pulse Rate [Finger] Pulse Rate from SpO2 Sensor 81 Pulse Rhythm Pulse Strength Respiratory Rate 18 Respiratory Effort / Characteristics Respiratory Depth Blood Pressure Blood Pressure [Right Arm] Blood Pressure Mean Blood Pressure Mean [Right Arm] Blood Pressure Position Blood Pressure Position [Right Arm] Pulse Oximetry 92 98 98 Oxygen Delivery Method Room Air Nasal Cannula Room Air Nasal Cannula Room Air Oxygen Flow Rate 0 2 Sepsis Recent Fever Within 48 Hours Sepsis New/Unexplained Change in Mental Status Sepsis Action Taken by Nursing Oxygen Flow Rate - Titration 2 Pulse Oximetry Post Tiitration 97 04/12/25 23:00 04/13/25 00:07 Temperature Temperature Source Pulse Rate 77 Pulse Rate [Finger] Pulse Rate from SpO2 Sensor Pulse Rhythm Pulse Strength Respiratory Rate Respiratory Effort / Characteristics Respiratory Depth Blood Pressure 92/51 L Blood Pressure [Right Arm] Blood Pressure Mean 61 Blood Pressure Mean [Right Arm] Blood Pressure Position Blood Pressure Position [Right Arm] Pulse Oximetry Oxygen Delivery Method Oxygen Flow Rate Sepsis Recent Fever Within 48 Hours Sepsis New/Unexplained Change in Mental Status Sepsis Action Taken by Nursing Oxygen Flow Rate - Titration Pulse Oximetry Post Tiitration Laboratory Data 04/12/25 20:26 04/12/25 20:26 Lab Results 04/12/25 04/12/25 04/12/25 Range/Units 20:26 20:38 22:28 WBC 18.48 H (4.8-10.8) K/ul RBC 4.55 (4.20-5.40) M/uL Hgb 14.2 (12.0-16.0) g/dL Hct 42.3 (37.0-47.0) % MCV 93.0 (80.0-100.0) fL MCH 31.2 (25.0-34.0) pg MCHC 33.6 (32.0-36.0) g/dL RDW Std Deviation 46.0 (36.4-46.3) fL RDW Coeff of Cheryl 13.3 (11.5-14.5) % Plt Count 169 (130-400) K/uL MPV 10.3 (9.4-12.4) fL Immature Gran % (Auto) 0.9 % Neut % (Auto) 89.6 % Lymph % (Auto) 2.5 % Brule % (Auto) 6.7 % Eos % (Auto) 0.0 % Baso % (Auto) 0.3 % Neut # (Auto) 16.56 H (1.40-6.50) K/uL Lymph # (Auto) 0.47 L (1.20-3.40) K/uL Brule # (Auto) 1.23 H (0.11-0.59) K/uL Eos # (Auto) 0.00 (0.00-0.50) K/uL Baso # (Auto) 0.05 (0.00-0.20) K/uL Immature Gran # (Auto) 0.17 (0.01-0.20) K/uL Sodium 139 (136-145) mmol/L Potassium 3.0 L (3.5-5.1) mmol/L Chloride 104 (98-107) mmol/L Carbon Dioxide 25 (21-32) mmol/L Anion Gap 10 (3-11) BUN 18 (6-23) mg/dl Creatinine 0.69 (0.6-1.2) mg/dl Est Cr Clr Drug Dosing Not Reportable eGFR 83.42 BUN/Creatinine Ratio 26.1 H (10-20) Glucose 159 H (70-99(Fasting)) mg/dl Lactate 2.2 H* 1.3 (0.4-2.0) mmol/L Calcium 9.0 (8.6-10.3) mg/dl Total Bilirubin 0.8 (0.2-1.0) mg/dl AST 21 (13-39) U/L ALT 22 (7-52) U/L Alkaline Phosphatase 99 (34-104) U/L Troponin I High Sens 344.4 H* 526.0 H* D (0-14) pg/ml Total Protein 6.7 (6.0-8.3) gm/dl Albumin 3.5 (3.4-5.0) gm/dl Globulin 3.2 (2.5-4.0) gm/dl Albumin/Globulin Ratio 1.1 (0.9-2) Lipase 4 L (11-82) U/L Urine Color Yellow Urine Appearance Cloudy A (Clear) Urine pH 6.0 (4.5-7.5) Ur Specific [place] 1.008 (1.000-1.030) Urine Protein 1+ H (Negative) Urine Glucose (UA) Negative (Negative) Urine Ketones Negative (Negative) Urine Blood 2+ H (Negative) Urine Nitrite Negative (Negative) Urine Bilirubin Negative (Negative) Urine Urobilinogen Negative (Negative) Ur Leukocyte Esterase 3+ H (Negative) Urine WBC (Auto) >50 H (0-5) /hpf Urine RBC (Auto) 6-10 H (0-2) /hpf U Hyaline Cast (Auto) >20 H (0-2) /lpf U Epithel Cells (Auto) 0-2 (0-2) /hpf Urine Bacteria (Auto) 4+ H (None Seen) Hyaline Casts Present A (None Presnt) /lpf Urine Mucus Present A (None Prsent) Urine Comment SARS-CoV-2 (PCR) (Negative) Influenza Type A (PCR) (Neg) Influenza Type B (PCR) (Neg) RSV (RT-PCR) (Neg) 04/12/25 Range/Units Unknown WBC (4.8-10.8) K/ul RBC (4.20-5.40) M/uL Hgb (12.0-16.0) g/dL Hct (37.0-47.0) % MCV (80.0-100.0) fL MCH (25.0-34.0) pg MCHC (32.0-36.0) g/dL RDW Std Deviation (36.4-46.3) fL RDW Coeff of Cheryl (11.5-14.5) % Plt Count (130-400) K/uL MPV (9.4-12.4) fL Immature Gran % (Auto) % Neut % (Auto) % Lymph % (Auto) % Brule % (Auto) % Eos % (Auto) % Baso % (Auto) % Neut # (Auto) (1.40-6.50) K/uL Lymph # (Auto) (1.20-3.40) K/uL Brule # (Auto) (0.11-0.59) K/uL Eos # (Auto) (0.00-0.50) K/uL Baso # (Auto) (0.00-0.20) K/uL Immature Gran # (Auto) (0.01-0.20) K/uL Sodium (136-145) mmol/L Potassium (3.5-5.1) mmol/L Chloride (98-107) mmol/L Carbon Dioxide (21-32) mmol/L Anion Gap (3-11) BUN (6-23) mg/dl Creatinine (0.6-1.2) mg/dl Est Cr Clr Drug Dosing eGFR BUN/Creatinine Ratio (10-20) Glucose (70-99(Fasting)) mg/dl Lactate (0.4-2.0) mmol/L Calcium (8.6-10.3) mg/dl Total Bilirubin (0.2-1.0) mg/dl AST (13-39) U/L ALT (7-52) U/L Alkaline Phosphatase (34-104) U/L Troponin I High Sens (0-14) pg/ml Total Protein (6.0-8.3) gm/dl Albumin (3.4-5.0) gm/dl Globulin (2.5-4.0) gm/dl Albumin/Globulin Ratio (0.9-2) Lipase (11-82) U/L Urine Color Urine Appearance (Clear) Urine pH (4.5-7.5) Ur Specific [place] (1.000-1.030) Urine Protein (Negative) Urine Glucose (UA) (Negative) Urine Ketones (Negative) Urine Blood (Negative) Urine Nitrite (Negative) Urine Bilirubin (Negative) Urine Urobilinogen (Negative) Ur Leukocyte Esterase (Negative) Urine WBC (Auto) (0-5) /hpf Urine RBC (Auto) (0-2) /hpf U Hyaline Cast (Auto) (0-2) /lpf U Epithel Cells (Auto) (0-2) /hpf Urine Bacteria (Auto) (None Seen) Hyaline Casts (None Presnt) /lpf Urine Mucus (None Prsent) Urine Comment SARS-CoV-2 (PCR) NEGATIVE (Negative) Influenza Type A (PCR) Negative (Neg) Influenza Type B (PCR) Negative (Neg) RSV (RT-PCR) Negative (Neg) Administered Medications Discontinued Medications Sodium Chloride (Nss) 1,000 mls @ 999 mls/hr IV .Q1H1M DORA Stop: 04/12/25 21:38 Last Infusion: 04/12/25 23:15 Dose: Infused Documented By: Admin: 04/12/25 21:06 Dose: 999 mls/hr Documented By: ELLE Cefepime HCl (Maxipime 2000mg) 2,000 mg in 20 mls @ 5 mls/min IV NOW STA; Protocol Stop: 04/12/25 20:41 Last Admin: 04/12/25 21:00 Dose: 5 mls/min Documented By: ELLE Vancomycin HCl 1,500 mg/ (Sodium Chloride) 530 mls @ 200 mls/hr IV NOW ONE Stop: 04/12/25 23:16 Last Admin: 04/12/25 21:58 Dose: 200 mls/hr Documented By: ELLE Acetaminophen (Ofirmev) 1,000 mg in 100 mls @ 400 mls/hr IV NOW STA Stop: 04/12/25 21:05 Last Infusion: 04/12/25 21:59 Dose: Infused Documented By: Admin: 04/12/25 21:00 Dose: 400 mls/hr Documented By: ELLE Imaging Data Radiologist's Impression: Chest X-Ray 04/12/25 20:07 Exam(s): XR CXR 1 VIEW EXAM: XR Chest, 1 View CLINICAL HISTORY: Reason for exam: Chest pain, nonspecific. TECHNIQUE: Frontal view of the chest. COMPARISON: 10/09/2022 FINDINGS: Lungs: Unremarkable. No consolidation. Pleural space: Unremarkable. No pneumothorax. Heart: Unremarkable. No cardiomegaly. Mediastinum: Unremarkable. Normal mediastinal contour. Bones/joints: Mild osteophytosis throughout the mid to lower thoracic spine. Osteophytosis involving the right shoulder. No acute fracture. Vasculature: The thoracic aorta is mildly calcified but appears nondilated. Tubes, lines and devices: The cardiac silhouette is mildly enlarged. There is a loop recorder projecting over the heart. Upper abdomen: Unremarkable as visualized. No pneumoperitoneum. IMPRESSION: 1. The cardiac silhouette is mildly enlarged. There is a loop recorder projecting over the heart. 2. The thoracic aorta is mildly calcified but appears nondilated. Electronically signed by: Destin Ruiz MD 04/12/25 21:56 PM Abdomen/Pelvis CT 04/12/25 20:16 Exam(s): CT ABDOMEN + PELVIS Without Contrast EXAM: CT Abdomen and Pelvis Without Intravenous Contrast CLINICAL HISTORY: Reason for exam: pain, N/V. TECHNIQUE: Axial computed tomography images of the abdomen and pelvis without intravenous contrast. CTDI is 15.78 mGy and DLP is 769.96 mGy-cm. Automated exposure control was utilized for the study. A dose lowering technique was utilized adhering to the principles of ALARA. COMPARISON: No relevant prior studies available. FINDINGS: Lung bases: 3.5 cm patchy infiltrate and partial consolidation of the right lower lobe suspicious for pneumonia. ABDOMEN: Liver: Unremarkable. Gallbladder and bile ducts: Mild biliary duct prominence post cholecystectomy. No choledocholithiasis is seen. Pancreas: Unremarkable. No ductal dilation. Spleen: Unremarkable. No splenomegaly. Adrenals: Unremarkable. No mass. Kidneys and ureters: Nonobstructive 4 mm calculus in the right kidney. No hydronephrosis or ureterolithiasis is seen involving either kidney. Stomach and bowel: 7.1 cm of stool in the rectum suggesting constipation. No other dilated bowel loops are identified. There is diverticulosis of the sigmoid colon without evidence of acute diverticulitis. The right and transverse colon are contracted which gives the appearance of mild wall thickening. No definite surrounding inflammation but mild colitis can not be excluded. PELVIS: Appendix: No findings to suggest acute appendicitis. Bladder: There is a Yoo catheter decompressing the urinary bladder. No stones. Reproductive: Unremarkable as visualized. ABDOMEN and PELVIS: Intraperitoneal space: Unremarkable. No free air. No significant fluid collection. Bones/joints: Mild degenerative changes throughout the lumbar spine with previous instrumentation and fusion at L5-S1. 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 No dislocation. Soft tissues: Unremarkable. Vasculature: The abdominal aorta is severely calcified but nondilated. This is a noncontrast study. Lymph nodes: Unremarkable. No enlarged lymph nodes. Tubes, lines and devices: There is a percutaneous gastrostomy tube in standard position. IMPRESSION: 1. 3.5 cm patchy infiltrate and partial consolidation of the right lower lobe suspicious for pneumonia. 2. 7.1 cm of stool in the rectum suggesting constipation. No other dilated bowel loops are identified. There is diverticulosis of the sigmoid colon without evidence of acute diverticulitis. The right and transverse colon are contracted which gives the appearance of mild wall thickening. No definite surrounding inflammation but mild colitis can not be excluded. 3. 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 4. Nonobstructive 4 mm calculus in the right kidney. No hydronephrosis or ureterolithiasis is seen involving either kidney. Electronically signed by: Destin Ruiz MD 04/12/25 22:[address] 04/12/25 20:16 Exam(s): CT HEAD Without Contrast EXAM: CT Head Without Intravenous Contrast CLINICAL HISTORY: Reason for exam: AMS, fall. TECHNIQUE: Axial computed tomography images of the head/brain without intravenous contrast. CTDI is 37.78 mGy and DLP is 624.41 mGy-cm. Automated exposure control was utilized for the study. A dose lowering technique was utilized adhering to the principles of ALARA. COMPARISON: MRI brain from 10/09/2022 FINDINGS: Brain: There is a large area of encephalomalacia and surrounding gliosis measuring 12 cm AP x 3.5 cm transverse involving most of the right temporal lobe and portions of the frontal parietal lobes as well as the right insula consistent with old infarct, unchanged. Mild cerebral atrophy and periventricular white matter low density in the left consistent with chronic small vessel disease and/or senescent changes. No new infarct or hemorrhage identified. Ventricles: Mildly dilated. No mass or hemorrhage. Bones/joints: Unremarkable. No acute fracture. Soft tissues: Unremarkable. Sinuses: Unremarkable as visualized. No acute sinusitis. Mastoid air cells: Unremarkable as visualized. No mastoid effusion. IMPRESSION: 1. There is a large area of encephalomalacia and surrounding gliosis measuring 12 cm AP x 3.5 cm transverse involving most of the right temporal lobe and portions of the frontal parietal lobes as well as the right insula consistent with old infarct, unchanged. 2. Mild cerebral atrophy and periventricular white matter low density in the left consistent with chronic small vessel disease and/or senescent changes. No new infarct or hemorrhage identified. 3. No acute traumatic findings identified. Electronically signed by: Destin Ruiz MD 04/12/25 22:18 PM Discharge Plan Visit Data Chief Complaint: Illness Stated Complaint: ILLNESS ED Provider: Sandi Nolan Discharge Problem: Pneumonia, Sepsis, Hypokalemia, Acidosis, lactic, Acute non-ST elevation myocardial infarction (NSTEMI), Leukocytosis, Acute UTI (urinary tract infection) Patient Disposition: Admitted As Inpatient Condition: Serious Forms Stand Alone Forms: [facility] Prescriptions Prescriptions: No Action atorvastatin 40 mg tablet 40 mg feeding tube HS levothyroxine 75 mcg tablet 75 mcg feeding tube DAILYBB amlodipine 2.5 mg tablet 2.5 mg feeding tube QAM fluoxetine 10 mg capsule 10 mg feeding tube QAM aspirin 81 mg Tablet,Delayed Release (Dr/Ec) 81 mg feeding tube QAM sodium chloride 1,000 mg Tablet,Soluble 1,000 mg feeding tube QAM Jevity 1.2 Hakeem 0.06 gram-1.2 kcal/mL Liquid 1 ea feeding tube BID Rx Instructions: 200 ML BOLUS BID levetiracetam [Keppra] 100 mg/mL Solution 500 mg PEG BID Qty: 60 0RF acetaminophen [Tylenol] 325 mg Tablet 650 mg feeding tube Q6H PRN (Reason: PAIN/FEVER) prednisone 5 mg Tablet 5 mg feeding tube DAILY promethazine [Phenergan] 25 mg/mL Solution 25 mg IM Q6H PRN (Reason: NAUSEA/VOMITING) omeprazole 20 mg Tablet,Delayed Release (Dr/Ec) 20 mg DAILY Rx Instructions: VIA PEG-TUBE Referrals Referrals: Brock Staurt MD [Outside Practitioners] -
[2025-04-12] MEDS ORDERED: VANCOMYCIN CONSULT ACTIVE PRN (20:38)
[2025-04-12 20:54] LABS: Hematocrit (blood only) 42.3 % (37.0-47.0); Hemoglobin 14.2 g/dL (12.0-16.0); Immature Granulocytes # (auto) 0.17 K/uL (0.01-0.20); Immature Granulocytes % (auto) 0.9 %; Mean Corpuscular Hemoglobin 31.2 pg (25.0-34.0); Mean Corpuscular Volume 93.0 fL (80.0-100.0); Platelet Count 169 K/uL (130-400); RDW Standard Deviation 46.0 fL (36.4-46.3); Red Blood Count 4.55 M/uL (4.20-5.40); White Blood Count 18.48 K/ul (4.8-10.8)
[2025-04-12 20:59] LABS: Alanine Aminotransferase 22 U/L (7-52); Albumin Globulin Ratio 1.1 (0.9-2); Albumin Level 3.5 gm/dl (3.4-5.0); Alkaline Phosphatase 99 U/L (34-104); Anion Gap 10 (3-11); Bilirubin,Total 0.8 mg/dl (0.2-1.0); Blood Urea Nitrogen 18 mg/dl (6-23); Calcium 9.0 mg/dl (8.6-10.3); Carbon Dioxide 25 mmol/L (21-32); Chloride 104 mmol/L (98-107); Globulin 3.2 gm/dl (2.5-4.0); Glucose 159 mg/dl (70-99(Fasting)); Lipase 4 U/L (11-82); Potassium 3.0 mmol/L (3.5-5.1); Sodium 139 mmol/L (136-145); Total Protein 6.7 gm/dl (6.0-8.3)
[2025-04-12] MEDS: ACETAMINOPHEN 1,000 MG/100 ML VIAL IV STA (21:00)
[2025-04-12] MEDS: CEFEPIME 2000MG 2,000 MG/20 ML SYR IV STA (21:00)
[2025-04-12] MEDS: SODIUM CHLORIDE 0.9% 1,000 ML IV SCH (21:06)
[2025-04-12 21:16] LABS: Influenza A virus by PCR Negative (Neg); Influenza B virus by PCR Negative (Neg); SARS CoV2 RNA(COVID-19) Ceph NEGATIVE (Negative)
[2025-04-12 21:55] LABS: Appearance Urine Cloudy (Clear); Bacteria Urine Automated 4+ (None Seen); Cast Urine Automated >20 /lpf (0-2); Epithelial Cell Urine Auto 0-2 /hpf (0-2); Glucose Urine UA Negative (Negative); WBC Urine Automated >50 /hpf (0-5)
--- NOTE | 2025-04-12 21:56 | XRay Report ---
Exam(s): XR CXR 1 VIEW EXAM: XR Chest, 1 View CLINICAL HISTORY: Reason for exam: Chest pain, nonspecific. TECHNIQUE: Frontal view of the chest. COMPARISON: 10/09/2022 FINDINGS: Lungs: Unremarkable. No consolidation. Pleural space: Unremarkable. No pneumothorax. Heart: Unremarkable. No cardiomegaly. Mediastinum: Unremarkable. Normal mediastinal contour. Bones/joints: Mild osteophytosis throughout the mid to lower thoracic spine. Osteophytosis involving the right shoulder. No acute fracture. Vasculature: The thoracic aorta is mildly calcified but appears nondilated. Tubes, lines and devices: The cardiac silhouette is mildly enlarged. There is a loop recorder projecting over the heart. Upper abdomen: Unremarkable as visualized. No pneumoperitoneum. IMPRESSION: 1. The cardiac silhouette is mildly enlarged. There is a loop recorder projecting over the heart. 2. The thoracic aorta is mildly calcified but appears nondilated. Electronically signed by: Destin Ruiz MD 04/12/25 21:56 PM
[2025-04-12] MEDS: VANCOMYCIN HCL 1,500 MG in SODIUM CHLORIDE 0.9% 500 ML IV ONE (21:58)
--- NOTE | 2025-04-12 22:19 | CT Scan Report ---
Exam(s): CT HEAD Without Contrast EXAM: CT Head Without Intravenous Contrast CLINICAL HISTORY: Reason for exam: AMS, fall. TECHNIQUE: Axial computed tomography images of the head/brain without intravenous contrast. CTDI is 37.78 mGy and DLP is 624.41 mGy-cm. Automated exposure control was utilized for the study. A dose lowering technique was utilized adhering to the principles of ALARA. COMPARISON: MRI brain from 10/09/2022 FINDINGS: Brain: There is a large area of encephalomalacia and surrounding gliosis measuring 12 cm AP x 3.5 cm transverse involving most of the right temporal lobe and portions of the frontal parietal lobes as well as the right insula consistent with old infarct, unchanged. Mild cerebral atrophy and periventricular white matter low density in the left consistent with chronic small vessel disease and/or senescent changes. No new infarct or hemorrhage identified. Ventricles: Mildly dilated. No mass or hemorrhage. Bones/joints: Unremarkable. No acute fracture. Soft tissues: Unremarkable. Sinuses: Unremarkable as visualized. No acute sinusitis. Mastoid air cells: Unremarkable as visualized. No mastoid effusion. IMPRESSION: 1. There is a large area of encephalomalacia and surrounding gliosis measuring 12 cm AP x 3.5 cm transverse involving most of the right temporal lobe and portions of the frontal parietal lobes as well as the right insula consistent with old infarct, unchanged. 2. Mild cerebral atrophy and periventricular white matter low density in the left consistent with chronic small vessel disease and/or senescent changes. No new infarct or hemorrhage identified. 3. No acute traumatic findings identified. Electronically signed by: Destin Ruiz MD 04/12/25 22:18 PM
--- NOTE | 2025-04-12 22:30 | CT Scan Report ---
Exam(s): CT ABDOMEN + PELVIS Without Contrast EXAM: CT Abdomen and Pelvis Without Intravenous Contrast CLINICAL HISTORY: Reason for exam: pain, N/V. TECHNIQUE: Axial computed tomography images of the abdomen and pelvis without intravenous contrast. CTDI is 15.78 mGy and DLP is 769.96 mGy-cm. Automated exposure control was utilized for the study. A dose lowering technique was utilized adhering to the principles of ALARA. COMPARISON: No relevant prior studies available. FINDINGS: Lung bases: 3.5 cm patchy infiltrate and partial consolidation of the right lower lobe suspicious for pneumonia. ABDOMEN: Liver: Unremarkable. Gallbladder and bile ducts: Mild biliary duct prominence post cholecystectomy. No choledocholithiasis is seen. Pancreas: Unremarkable. No ductal dilation. Spleen: Unremarkable. No splenomegaly. Adrenals: Unremarkable. No mass. Kidneys and ureters: Nonobstructive 4 mm calculus in the right kidney. No hydronephrosis or ureterolithiasis is seen involving either kidney. Stomach and bowel: 7.1 cm of stool in the rectum suggesting constipation. No other dilated bowel loops are identified. There is diverticulosis of the sigmoid colon without evidence of acute diverticulitis. The right and transverse colon are contracted which gives the appearance of mild wall thickening. No definite surrounding inflammation but mild colitis can not be excluded. PELVIS: Appendix: No findings to suggest acute appendicitis. Bladder: There is a Yoo catheter decompressing the urinary bladder. No stones. Reproductive: Unremarkable as visualized. ABDOMEN and PELVIS: Intraperitoneal space: Unremarkable. No free air. No significant fluid collection. Bones/joints: Mild degenerative changes throughout the lumbar spine with previous instrumentation and fusion at L5-S1. 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 No dislocation. Soft tissues: Unremarkable. Vasculature: The abdominal aorta is severely calcified but nondilated. This is a noncontrast study. Lymph nodes: Unremarkable. No enlarged lymph nodes. Tubes, lines and devices: There is a percutaneous gastrostomy tube in standard position. IMPRESSION: 1. 3.5 cm patchy infiltrate and partial consolidation of the right lower lobe suspicious for pneumonia. 2. 7.1 cm of stool in the rectum suggesting constipation. No other dilated bowel loops are identified. There is diverticulosis of the sigmoid colon without evidence of acute diverticulitis. The right and transverse colon are contracted which gives the appearance of mild wall thickening. No definite surrounding inflammation but mild colitis can not be excluded. 3. 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 4. Nonobstructive 4 mm calculus in the right kidney. No hydronephrosis or ureterolithiasis is seen involving either kidney. Electronically signed by: Destin Ruiz MD 04/12/25 22:29 PM
[2025-04-13] MEDS: HYDROCORTISONE SOD SUCCINATE 100 MG/2 ML VIAL IV STA (01:01)
[2025-04-13] MEDS: POTASSIUM CHLORIDE / WTR 10 MEQ/100 ML PLCT IV SCH (01:04)
--- NOTE | 2025-04-13 01:06 | History & Physical Report ---
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 Daughter in the room. Daughter was called today as patient had couple of vomiting last night. The detention sent urine sample. Daughter went in the afternoon and fed her. While daughter was feeding the patient was shaking which happened in the past when she had a UTI. And daughter got call again in the evening that the patient's symptoms progressed and getting more confused and was brought to the hospital. Patient opens eyes but not talking. As per the daughter last 2 days she has been confused but before that she was talking fine. No complaints of any pain. Seems normal bowel and bladder movements. Currently could not get any history from the patient. Sepsis Fever, leukocytosis, soft blood pressure, initial lactic acid 2.2 repeat is 1.3, UA is positive, CT abdomen pelvis shows right lower lobe consolidation Sepsis most likely from UTI and pneumonia Received Vanco and cefepime in the ER. Will continue with Vanco and Zosyn IV fluids IV hydrocortisone stress dose as patient is chronically on prednisone Patient is DNR/DNI. Confirmed with daughter Daughter says okay for pressors if needed Close monitoring hemodynamics in telemetry Metabolic encephalopathy Altered mental status Mostly from sepsis CT head shows old stroke Will monitor Elevated troponin Initial troponin 344 and repeat 526 EKG okay Low-dose IV heparin for now Will follow serial cardiac enzymes and echo Cardiac consult in a.m. for further recommendations History of right MCA CVA Left-sided hemiparesis Bedbound On pured diet and also on bolus tube feeds Has PEG tube All the p.o. medicines per PEG tubes Continue aspirin and statin History of seizures Continue home Keppra Nutrition Usually on pureed Diet and bolus tube feeds Currently n.p.o. and also holding tube feeds for possible aspiration Restart as soon as possible Depression anxiety Continue fluoxetine Hypertension Holding amlodipine for sepsis Hypothyroidism On Synthyroid GERD IV PPI for now DVT prophylaxis History of Present Illness Chief Complaint: Sepsis. 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 Daughter in the room. Daughter was called today as patient had couple of vomiting last night. The detention sent urine sample. Daughter went in the afternoon and fed her. While daughter was feeding the patient was shaking which happened in the past when she had a UTI. And daughter got call again in the evening that the patient's symptoms progressed and getting more confused and was brought to the hospital. Patient opens eyes but not talking. As per the daughter last 2 days she has been confused but be fore that she was talking fine. No complaints of any pain. Seems normal bowel and bladder movements. Currently could not get any history from the patient. Past medical history. As mentioned above. Past surgical history. Appendectomy tonsillectomy. Cholecystectomy. Thrombectomy. Family history. Aunt had breast cancer. Social history. Currently living at detention. No history of smoking. No drug use. Allergies Allergy/AdvReac Type Severity Reaction Status Date / Time allopurinol Allergy Unknown Unknown Verified 04/12/25 21:28 lisinopril AdvReac Intermediate Cough Verified 04/12/25 21:28 Home Medications Medication Instructions Recorded Confirmed Type amlodipine 2.5 mg tablet 2.5 mg feeding tube QAM 10/09/22 04/12/25 History aspirin 81 mg tablet,delayed 81 mg feeding tube QAM 10/09/22 04/12/25 History release atorvastatin 40 mg tablet 40 mg feeding tube HS 10/09/22 04/12/25 History fluoxetine 10 mg capsule 10 mg feeding tube QAM 10/09/22 04/12/25 History lactose-reduced food with fiber 1 ea feeding tube BID 10/09/22 04/12/25 History 0.06 gram-1.2 kcal/mL oral liquid (Jevity 1.2 Hakeem) levothyroxine 75 mcg tablet 75 mcg feeding tube DAILYBB 10/09/22 04/12/25 History sodium chloride 1,000 mg soluble 1,000 mg feeding tube QAM 10/09/22 04/12/25 History tablet levetiracetam 100 mg/mL oral 500 mg (5 mL) PEG BID #60 mL 10/11/22 04/12/25 Rx solution (Keppra) acetaminophen 325 mg tablet 650 mg feeding tube Q6H PRN 04/12/25 04/12/25 History (Tylenol) PAIN/FEVER omeprazole 20 mg tablet,delayed 20 mg DAILY 04/12/25 04/12/25 History release prednisone 5 mg tablet 5 mg feeding tube DAILY 04/12/25 04/12/25 History promethazine 25 mg/mL injection 25 mg IM Q6H PRN NAUSEA/VOMITING 04/12/25 04/12/25 History solution (Phenergan) Past Med/Surg History Problem List (Updated 04/13/25 @ 04:01 by Background Daemon) Acute UTI (urinary tract infection) (Acute) Pneumonia (Acute) Leukocytosis (Acute) Acute non-ST elevation myocardial infarction (NSTEMI) (Acute) Acidosis, lactic (Acute) Hypokalemia (Acute) Sepsis (Acute) Chronic right arterial ischemic stroke, MCA (middle cerebral artery) Stroke-like symptoms Hypothyroidism History of CVA (cerebrovascular accident) GERD (gastroesophageal reflux disease) CVA (cerebral vascular accident) Medical History (Updated 04/13/25 @ 04:01 by Background Daemon) HTN (hypertension) No pertinent family history HLD (hyperlipidemia) Surgical History No pertinent past surgical history Social History Smoking Status: Unknown if ever smoked Hx Alcohol Use: No Hx Substance Use: No Preferred Language: Congolese Communication Ability: Effective Museum Assistant Required: No Beliefs That Will Affect Care: None Current Living Situation: Family Current Living Situation Comment: Patient lives with daughter and son in law. Feels Safe at Home: Yes Assistive Devices: Denture - Upper and Wheelchair Review of Systems Review of Systems: Unobtainable due to reduced consciousness Physical Exam Physical Exam: General- Drowsy Head- atraumatic Eyes- PERRL. ENT- oropharynx clear Neck- supple, no JVD. Lungs- clear to auscultation no wheezing or crackles Heart- regular rhythm; no murmur, no gallop, Abdomen- normal bowel sounds, soft, nontender, no distension, PEG tube site ok Extremities- no pretibial edema, no erythema seen Neuro-Drowsy. PERRL, not answering Results & Data Results & Data Vital Signs (Past 12 Hours) Vital Signs Temp Pulse Pulse Resp BP BP Pulse Ox 04/13/25 00:07 77 04/12/25 23:00 92/51 L 04/12/25 23:00 80 18 98 04/12/25 20:34 105 H 98 04/12/25 19:59 92 04/12/25 19:49 38.4 C H 115 H 30 H 106/52 L 92 04/12/25 19:49 38.4 C H 115 H 30 H 106/52 L 92 04/12/25 19:47 111 H O2 Del Method O2 Flow Rate 04/13/25 00:07 04/12/25 23:00 04/12/25 23:00 Room Air 04/12/25 20:34 Room Air, Nasal Cannula 2 04/12/25 19:59 Room Air, Nasal Cannula 0 04/12/25 19:49 Room Air 04/12/25 19:49 Room Air 04/12/25 19:47 Diagnostic Findings Laboratory Results WBC 18.48 K/ul (4.8-10.8) H 04/12/25 20: RBC 4.55 M/uL (4.20-5.40) 04/12/25 20: Hgb 14.2 g/dL (12.0-16.0) 04/12/25 20: Hct 42.3 % (37.0-47.0) 04/12/25 20: MCV 93.0 fL (80.0-100.0) 04/12/25 20: MCH 31.2 pg (25.0-34.0) 04/12/25 20: MCHC 33.6 g/dL (32.0-36.0) 04/12/25 20: RDW Std Deviation 46.0 fL (36.4-46.3) 04/12/25 20: RDW Coeff of Cheryl 13.3 % (11.5-14.5) 04/12/25 20: Plt Count 169 K/uL (130-400) 04/12/25 20: MPV 10.3 fL (9.4-12.4) 04/12/25 20: Immature Gran % (Auto) 0.9 % 04/12/25 20: Neut % (Auto) 89.6 % 04/12/25 20: Lymph % (Auto) 2.5 % 04/12/25 20: [place] % (Auto) 6.7 % 04/12/25 20: Eos % (Auto) 0.0 % 04/12/25 20: Baso % (Auto) 0.3 % 04/12/25 20: Neut # (Auto) 16.56 K/uL (1.40-6.50) H 04/12/25 20: Lymph # (Auto) 0.47 K/uL (1.20-3.40) L 04/12/25 20: [place] # (Auto) 1.23 K/uL (0.11-0.59) H 04/12/25 20: Eos # (Auto) 0.00 K/uL (0.00-0.50) 04/12/25 20: Baso # (Auto) 0.05 K/uL (0.00-0.20) 04/12/25 20: Immature Gran # (Auto) 0.17 K/uL (0.01-0.20) 04/12/25 20: Sodium 139 mmol/L (136-145) 04/12/25 20: Potassium 3.0 mmol/L (3.5-5.1) L 04/12/25 20: Chloride 104 mmol/L (98-107) 04/12/25: Carbon Dioxide 25 mmol/L (21-32) 04/12/25 20: Anion Gap 10 (3-11) 04/12/25 20: BUN 18 mg/dl (6-23) 04/12/25: Creatinine 0.69 mg/dl (0.6-1.2) 04/12/25: Est Cr Clr Drug Dosing Not Reportable 04/12/25 20: eGFR 83.42 04/12/25 20: BUN/Creatinine Ratio 26.1 (10-20) H 04/12/25 20: Glucose 159 mg/dl (70-99(Fasting)) H 04/12/25 20: Lactate 1.3 mmol/L (0.4-2.0) 04/12/25 22: Calcium 9.0 mg/dl (8.6-10.3) 04/12/25 20: Total Bilirubin 0.8 mg/dl (0.2-1.0) 04/12/25 20: AST 21 U/L (13-39) 04/12/25 20: ALT 22 U/L (7-52) 04/12/25 20: Alkaline Phosphatase 99 U/L (34-104) 04/12/25 20: Troponin I High Sens 526.0 pg/ml (0-14) H* D 04/12/25 22:28 Total Protein 6.7 gm/dl (6.0-8.3) 04/12/25 20: Albumin 3.5 gm/dl (3.4-5.0) 04/12/25 20: Globulin 3.2 gm/dl (2.5-4.0) 04/12/25 20: Albumin/Globulin Ratio 1.1 (0.9-2) 04/12/25 20: Lipase 4 U/L (11-82) L 04/12/25 20: Urine Color Yellow 04/12/25 20: Urine Appearance Cloudy (Clear) A 04/12/25 20: Urine pH 6.0 (4.5-7.5) 04/12/25 20:38 Ur Specific [place] 1.008 (1.000-1.030) 04/12/25 20: Urine Protein 1+ (Negative) H 04/12/25 20: Urine Glucose (UA) Negative (Negative) 04/12/25 20: Urine Ketones Negative (Negative) 04/12/25 20: Urine Blood 2+ (Negative) H 04/12/25 20: Urine Nitrite Negative (Negative) 04/12/25 20: Urine Bilirubin Negative (Negative) 04/12/25 20: Urine Urobilinogen Negative (Negative) 04/12/25 20: Ur Leukocyte Esterase 3+ (Negative) H 04/12/25 20:38 Urine WBC (Auto) >50 /hpf (0-5) H 04/12/25 20: Urine RBC (Auto) 6-10 /hpf (0-2) H 04/12/25 20:38 U Hyaline Cast (Auto) >20 /lpf (0-2) H 04/12/25 20:38 U Epithel Cells (Auto) 0-2 /hpf (0-2) 04/12/25 20:38 Urine Bacteria (Auto) 4+ (None Seen) H 04/12/25 20:38 Hyaline Casts Present /lpf (None Presnt) A 04/12/25 20:38 Urine Mucus Present (None Prsent) A 04/12/25 20:38 Urine Comment 04/12/25 20:38 SARS-CoV-2 (PCR) NEGATIVE (Negative) 04/12/25 Unknown Influenza Type A (PCR) Negative (Neg) 04/12/25 Unknown Influenza Type B (PCR) Negative (Neg) 04/12/25 Unknown RSV (RT-PCR) Negative (Neg) 04/12/25 Unknown Impressions Chest X-Ray 04/12/25 20:07 Exam(s): XR CXR 1 VIEW EXAM: XR Chest, 1 View CLINICAL HISTORY: Reason for exam: Chest pain, nonspecific. TECHNIQUE: Frontal view of the chest. COMPARISON: 10/09/2022 FINDINGS: Lungs: Unremarkable. No consolidation. Pleural space: Unremarkable. No pneumothorax. Heart: Unremarkable. No cardiomegaly. Mediastinum: Unremarkable. Normal mediastinal contour. Bones/joints: Mild osteophytosis throughout the mid to lower thoracic spine. Osteophytosis involving the right shoulder. No acute fracture. Vasculature: The thoracic aorta is mildly calcified but appears nondilated. Tubes, lines and devices: The cardiac silhouette is mildly enlarged. There is a loop recorder projecting over the heart. Upper abdomen: Unremarkable as visualized. No pneumoperitoneum. IMPRESSION: 1. The cardiac silhouette is mildly enlarged. There is a loop recorder projecting over the heart. 2. The thoracic aorta is mildly calcified but appears nondilated. Electronically signed by: Destin Ruiz MD 04/12/25 21:56 PM Abdomen/Pelvis CT 04/12/25 20:16 Exam(s): CT ABDOMEN + PELVIS Without Contrast EXAM: CT Abdomen and Pelvis Without Intravenous Contrast CLINICAL HISTORY: Reason for exam: pain, N/V. TECHNIQUE: Axial computed tomography images of the abdomen and pelvis without intravenous contrast. CTDI is 15.78 mGy and DLP is 769.96 mGy-cm. Automated exposure control was utilized for the study. A dose lowering technique was utilized adhering to the principles of ALARA. COMPARISON: No relevant prior studies available. FINDINGS: Lung bases: 3.5 cm patchy infiltrate and partial consolidation of the right lower lobe suspicious for pneumonia. ABDOMEN: Liver: Unremarkable. Gallbladder and bile ducts: Mild biliary duct prominence post cholecystectomy. No choledocholithiasis is seen. Pancreas: Unremarkable. No ductal dilation. Spleen: Unremarkable. No splenomegaly. Adrenals: Unremarkable. No mass. Kidneys and ureters: Nonobstructive 4 mm calculus in the right kidney. No hydronephrosis or ureterolithiasis is seen involving either kidney. Stomach and bowel: 7.1 cm of stool in the rectum suggesting constipation. No other dilated bowel loops are identified. There is diverticulosis of the sigmoid colon without evidence of acute diverticulitis. The right and transverse colon are contracted which gives the appearance of mild wall thickening. No definite surrounding inflammation but mild colitis can not be excluded. PELVIS: Appendix: No findings to suggest acute appendicitis. Bladder: There is a Yoo catheter decompressing the urinary bladder. No stones. Reproductive: Unremarkable as visualized. ABDOMEN and PELVIS: Intraperitoneal space: Unremarkable. No free air. No significant fluid collection. Bones/joints: Mild degenerative changes throughout the lumbar spine with previous instrumentation and fusion at L5-S1. 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 No dislocation. Soft tissues: Unremarkable. Vasculature: The abdominal aorta is severely calcified but nondilated. This is a noncontrast study. Lymph nodes: Unremarkable. No enlarged lymph nodes. Tubes, lines and devices: There is a percutaneous gastrostomy tube in standard position. IMPRESSION: 1. 3.5 cm patchy infiltrate and partial consolidation of the right lower lobe suspicious for pneumonia. 2. 7.1 cm of stool in the rectum suggesting constipation. No other dilated bowel loops are identified. There is diverticulosis of the sigmoid colon without evidence of acute diverticulitis. The right and transverse colon are contracted which gives the appearance of mild wall thickening. No definite surrounding inflammation but mild colitis can not be excluded. 3. 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 4. Nonobstructive 4 mm calculus in the right kidney. No hydronephrosis or ureterolithiasis is seen involving either kidney. Electronically signed by: Destin Ruiz MD 04/12/25 22:[address] 04/12/25 20:16 Exam(s): CT HEAD Without Contrast EXAM: CT Head Without Intravenous Contrast CLINICAL HISTORY: Reason for exam: AMS, fall. TECHNIQUE: Axial computed tomography images of the head/brain without intravenous contrast. CTDI is 37.78 mGy and DLP is 624.41 mGy-cm. Automated exposure control was utilized for the study. A dose lowering technique was utilized adhering to the principles of ALARA. COMPARISON: MRI brain from 10/09/2022 FINDINGS: Brain: There is a large area of encephalomalacia and surrounding gliosis measuring 12 cm AP x 3.5 cm transverse involving most of the right temporal lobe and portions of the frontal parietal lobes as well as the right insula consistent with old infarct, unchanged. Mild cerebral atrophy and periventricular white matter low density in the left consistent with chronic small vessel disease and/or senescent changes. No new infarct or hemorrhage identified. Ventricles: Mildly dilated. No mass or hemorrhage. Bones/joints: Unremarkable. No acute fracture. Soft tissues: Unremarkable. Sinuses: Unremarkable as visualized. No acute sinusitis. Mastoid air cells: Unremarkable as visualized. No mastoid effusion. IMPRESSION: 1. There is a large area of encephalomalacia and surrounding gliosis measuring 12 cm AP x 3.5 cm transverse involving most of the right temporal lobe and portions of the frontal parietal lobes as well as the right insula consistent with old infarct, unchanged. 2. Mild cerebral atrophy and periventricular white matter low density in the left consistent with chronic small vessel disease and/or senescent changes. No new infarct or hemorrhage identified. 3. No acute traumatic findings identified. Electronically signed by: Destin Ruiz MD 04/12/25 22:18 PM ECG Additional Comments: ECG. Sinus tach rate of 108. Left axis deviation. Nonspecific T wave abnormalities. Code Status & VTE Plan VTE Prophylaxis Plan VTE Prophylaxis will be ordered: Yes
[2025-04-13] MEDS ORDERED: ONDANSETRON INJ 2 MG/ML 2 ML VIAL IV PRN (04:07)
[2025-04-13] MEDS ORDERED: NITROGLYCERIN SL 0.4 MG/TAB TAB SL PRN (04:07)
[2025-04-13] MEDS ORDERED: ACETAMINOPHEN 1,000 MG/100 ML VIAL IV PRN (04:07)
[2025-04-13] MEDS ORDERED: ACETAMINOPHEN 325 MG TAB PEG PRN (04:07)
[2025-04-13] MEDS: LACTULOSE SYRUP 20 GM/30 ML UDC PEG ONE (04:31)
[2025-04-13] MEDS: HEPARIN 25000 UNIT/500 ML D5W 25,000 UNITS/500 ML BAG IV SCH (05:03)
[2025-04-13 05:50] LABS: Hematocrit (blood only) 35.9 % (37.0-47.0); Hemoglobin 11.8 g/dL (12.0-16.0); Mean Corpuscular Hemoglobin 30.7 pg (25.0-34.0); Mean Corpuscular Volume 93.5 fL (80.0-100.0); Platelet Count 142 K/uL (130-400); RDW Standard Deviation 45.7 fL (36.4-46.3); Red Blood Count 3.84 M/uL (4.20-5.40); White Blood Count 14.17 K/ul (4.8-10.8)
[2025-04-13 06:11] LABS: Anion Gap 7.0 (3-11); Blood Urea Nitrogen 20.0 mg/dl (6-23); Calcium 8.0 mg/dl (8.6-10.3); Carbon Dioxide 23.0 mmol/L (21-32); Chloride 108.0 mmol/L (98-107); Creatinine Clr Calc Pharmacy 57.4 ml/min; Glucose 174.0 mg/dl (70-99(Fasting)); Magnesium 1.8 mg/dl (1.7-2.4); Potassium 4.5 mmol/L (3.5-5.1); Sodium 138.0 mmol/L (136-145)
[2025-04-13] MEDS: PIPERACILLIN/TAZOBACTAM 4.5 GM/100 ML BAG IV SCH (06:12)
[2025-04-13] MEDS: SODIUM CHLORIDE 0.9% 1,000 ML IV SCH (06:13)
[2025-04-13] MEDS: Heparin IV Adult Wt-Based Low-Dose *NO* INITIAL Bolus Protocol IV SCH (06:24)
[2025-04-13 06:41] LABS: Immature Granulocytes # (auto) 0.10 K/uL (0.01-0.20); Immature Granulocytes % (auto) 0.7 %
[2025-04-13] MEDS: LEVOTHYROXINE SODIUM 75 MCG TABLET PEG SCH (07:40)
[2025-04-13] MEDS: SODIUM CHLORIDE 1 GM TABLET PO SCH (08:15)
[2025-04-13] MEDS: ASPIRIN 81 MG ECTAB PO SCH (08:15)
[2025-04-13] MEDS: HYDROCORTISONE SOD 100 MG in SYRINGE 0 ML IV SCH (08:16)
[2025-04-13] MEDS: PANTOprazole 40 MG/10 ML SYR IV SCH (08:22)
--- NOTE | 2025-04-13 08:48 | XCELERA ---
[id number]
--- NOTE | 2025-04-13 08:59 | Cardiology Consultation ---
Date of Consultation April 13, 2025 Assessment & Plan (1) Acute UTI (urinary tract infection): (2) Pneumonia: (3) Elevated troponin: Plan Assessment: 89 year old female with PMHx significant for MCA territory CVA significant residual effect admitted for decline in mental status and vomiting. Elevated WBC and Lactate, + UA, + Blood cultures, and positive imaging suggestive of pneumonia. Troponin elevation with no acute EKG changes. Cardiology consulted for further evaluation and recommendations. Plan: -patient admitted with vomiting and alerted mental status. Baseline difficult to determine although daughter does report she will often be non-verbal. -Patient with evidence of acute UTI and pneumonia with newly positive blood cultures. +ESBL, urosepsis--continued management per primary team -Troponin elevation with peak of 526.0 and trending down. Patient does not offer acute complaints of chest pain, but cognitive status is limited. -EKG with no acute ischemic changes. Heparin gtt currently running -Obtain resting echocardiogram to assess overall structure and function as well as any wall motion abnormalities. -Review of telemetry shows no acute events. -Continue ASA 81mg, Atorvastatin 40mg via PEG tube. Refrain from beta jacob therapies s/t resting bradycardia Case has been discussed with Dr. Mccann. Further recommendations regarding plan of care as per his assessment. I spent a total of 50 minutes on the date of service in preparation, delivery, documentation of the care provided to the patient excluding any time spent in the performance of separately billed services. CRICKET Banks [facility] Cardiology [facility] Supervising Physician Co-Signing Physician Notes Patient was seen and personally examined. Initial assessment and plan as outlined by advanced provider above. Care and management personally endorsed Echocardiogram 04/13/2025 Normal left atrial size with moderate left hypertrophy Normal wall motion, EF 55 to 60% Aortic valve sclerosis without stenosis Mitral valve annular calcification without stenosis Moderate to severe tricuspid insufficiency without evidence of pulmonary hypertension 89-year-old female with complex history as outlined referred for evaluation of elevated troponin in the setting of gram-negative bacillus sepsis. EKG without ischemic changes echocardiogram with preserved LV systolic function Troponin elevation reflects type II demand ischemia in the setting of acute urosepsis. 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 Patient's is laying in bed opens eyes to verbal stimuli, but is non-verbal. Patient's daughter is at bedside and reports that her verbal status varies day to day. Often non-verbal at baseline, but will have random times that she will make a clear statement. ROS is limited s/t non-verbal status Patient was found to be febrile. elevated WBC and lactate, UA abnormal--sent for culture. Initial blood cx have resulted + ESBL e. coli. High sensitivity troponin 344.4/526.0/287.[address] with previously cited inferior infarct. Chest x-ray: IMPRESSION: 1. The cardiac silhouette is mildly enlarged. There is a loop recorder projecting over the heart. 2. The thoracic aorta is mildly calcified but appears nondilated. CT ABD/Pelvis: IMPRESSION: 1. 3.5 cm patchy infiltrate and partial consolidation of the right lower lobe suspicious for pneumonia. 2. 7.1 cm of stool in the rectum suggesting constipation. No other dilated bowel loops are identified. There is diverticulosis of the sigmoid colon without evidence of acute diverticulitis. The right and transverse colon are contracted which gives the appearance of mild wall thickening. No definite surrounding inflammation but mild colitis can not be excluded. 3. 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 4. Nonobstructive 4 mm calculus in the right kidney. No hydronephrosis or ureterolithiasis is seen involving either kidney. Head CT 04/12/25 IMPRESSION: 1. There is a large area of encephalomalacia and surrounding gliosis measuring 12 cm AP x 3.5 cm transverse involving most of the right temporal lobe and portions of the frontal parietal lobes as well as the right insula consistent with old infarct, unchanged. 2. Mild cerebral atrophy and periventricular white matter low density in the left consistent with chronic small vessel disease and/or senescent changes. No new infarct or hemorrhage identified. 3. No acute traumatic findings identified. Review of telemetry shows Sinus Raji/Sinus Rhythm Rate 49-60bpm Allergies Allergy/AdvReac Type Severity Reaction Status Date / Time allopurinol Allergy Unknown Unknown Verified 04/12/25 21:28 lisinopril AdvReac Intermediate Cough Verified 04/12/25 21:28 Home Medications Medication Instructions Recorded Confirmed Type amlodipine 2.5 mg tablet 2.5 mg feeding tube QAM 10/09/22 04/12/25 History aspirin 81 mg tablet,delayed 81 mg feeding tube QAM 10/09/22 04/12/25 History release atorvastatin 40 mg tablet 40 mg feeding tube HS 10/09/22 04/12/25 History fluoxetine 10 mg capsule 10 mg feeding tube QAM 10/09/22 04/12/25 History lactose-reduced food with fiber 1 ea feeding tube BID 10/09/22 04/12/25 History 0.06 gram-1.2 kcal/mL oral liquid (Jevity 1.2 Hakeem) levothyroxine 75 mcg tablet 75 mcg feeding tube DAILYBB 10/09/22 04/12/25 History sodium chloride 1,000 mg soluble 1,000 mg feeding tube QAM 10/09/22 04/12/25 History tablet levetiracetam 100 mg/mL oral 500 mg (5 mL) PEG BID #60 mL 10/11/22 04/12/25 Rx solution (Keppra) acetaminophen 325 mg tablet 650 mg feeding tube Q6H PRN 04/12/25 04/12/25 History (Tylenol) PAIN/FEVER omeprazole 20 mg tablet,delayed 20 mg DAILY 04/12/25 04/12/25 History release prednisone 5 mg tablet 5 mg feeding tube DAILY 04/12/25 04/12/25 History promethazine 25 mg/mL injection 25 mg IM Q6H PRN NAUSEA/VOMITING 04/12/25 04/12/25 History solution (Phenergan) Patient History Medical History HTN (hypertension) No pertinent family history HLD (hyperlipidemia) Surgical History No pertinent past surgical history Social History Smoking Status: Never smoker Do You Dip or Chew Tobacco: No; Hx Alcohol Use: No Hx Substance Use: No Preferred Language: Yakut Communication Ability: Effective Story Writer Required: No Beliefs That Will Affect Care: None Current Living Situation: Alf Current Living Situation Comment: Patient lives with daughter and son in law. Feels Safe at Home: Yes Safety Concerns: Feels Safe At This Time Assistive Devices: Mechanical Lift, Walker and Other Review of Systems Review of Systems: Unobtainable due to cognitive status (Patient often non- verbal at baseline ) Physical Exam Constitutional: well developed and + ill appearing; no acute distress Neck: normal visual inspection and trachea midline Respiratory: normal respiratory effort; no respiratory distress, no labored breathing and no cough Auscultation: + diminished lung sounds (bilateral bases ); no crackles, no rales, no rhonchi and no wheezes Cardiovascular: Heart Sounds: normal S1 and normal S2 Vessels: dorsalis pedis pulses present; no JVD Extremities: no edema Skin: no rashes, warm and dry Psychiatric: Orientation: alert and oriented x 3 (non-verbal) Results & Data Vital Signs (Past 12 Hours) Vital Signs Pulse Pulse Resp BP BP Pulse Ox Pulse Ox 04/13/25 08:20 95 04/13/25 08:19 57 L 20 137/74 95 04/13/25 07:16 59 L 04/13/25 06:00 59 L 13 98/57 L 95 04/13/25 05:30 61 18 97/60 L 96 04/13/25 04:00 89 17 107/60 95 04/13/25 03:03 65 15 97/56 L 94 04/13/25 02:37 71 16 97/60 L 94 04/13/25 01:01 73 18 91/47 L 99 04/13/25 00:07 77 04/12/25 23:00 92/51 L 04/12/25 23:00 80 18 98 O2 Del Method O2 Del Method 04/13/25 08:20 Room Air 04/13/25 08:19 Room Air 04/13/25 07:16 04/13/25 06:00 04/13/25 05:30 04/13/25 04:00 04/13/25 03:03 04/13/25 02:37 Room Air 04/13/25 01:01 Room Air 04/13/25 00:07 04/12/25 23:00 04/12/25 23:00 Room Air Laboratory Results Cardiac Enzymes 04/12/25 04/12/25 04/13/25 Range/Units 20:26 22:28 05:08 AST 21 (13-39) U/L Troponin I High Sens 344.4 H* 526.0 H* D 287.1 H* D (0-14) pg/ml CBC 04/12/25 04/13/25 Range/Units 20:26 05:08 WBC 18.48 H 14.17 H (4.8-10.8) K/ul RBC 4.55 3.84 L (4.20-5.40) M/uL Hgb 14.2 11.8 L (12.0-16.0) g/dL Hct 42.3 35.9 L (37.0-47.0) % Plt Count 169 142 (130-400) K/uL Neut # (Auto) 16.56 H 13.03 H (1.40-6.50) K/uL Lymph # (Auto) 0.47 L 0.44 L (1.20-3.40) K/uL Jones # (Auto) 1.23 H 0.56 (0.11-0.59) K/uL Eos # (Auto) 0.00 0.00 (0.00-0.50) K/uL Baso # (Auto) 0.05 0.04 (0.00-0.20) K/uL Comprehensive Metabolic Panel 04/12/25 04/13/25 Range/Units 20:26 05:08 Sodium 139 138 (136-145) mmol/L Potassium 3.0 L 4.5 D (3.5-5.1) mmol/L Chloride 104 108 H (98-107) mmol/L Carbon Dioxide 25 23 (21-32) mmol/L BUN 18 20 (6-23) mg/dl Creatinine 0.69 0.58 L (0.6-1.2) mg/dl Glucose 159 H 174 H (70-99(Fasting)) mg/dl Calcium 9.0 8.0 L (8.6-10.3) mg/dl AST 21 (13-39) U/L ALT 22 (7-52) U/L Alkaline Phosphatase 99 (34-104) U/L Total Protein 6.7 (6.0-8.3) gm/dl Albumin 3.5 (3.4-5.0) gm/dl Intake and Output 04/12/25 04/13/25 04/13/25 22:59 06:59 14:59 Intake Total 100 / 1920 1820 / 1920 84.583 / 84.583 Output Total 700 / 700 Balance 100 / 1920 1820 / 1920 -615.417 / -615.417 Intake: IV 100 / 1920 1820 / 1920 84.583 / 84.583 Acetaminophen 1,000 mg In 100 100 / 100 ml @ 400 mls/hr IV NOW STA Rx#: [id number] Piperacillin/Tazobactam 4.5 gm 84.583 / 84.583 In 100 ml @ 25 mls/hr IV Q8H [facility] Rx#:[id number] Potassium Chloride / Wtr 10 meq 290 / 290 In 100 ml @ 100 mls/hr IV Q1H [facility] Rx#:[id number] Sodium Chloride 0.9% 1,000 ml @ 1000 / 1000 999 mls/hr IV .Q1H1M [facility] Rx#: [id number] Vancomycin HCl 1,500 mg In 530 / 530 Sodium Chloride 0.9% 500 ml @ 200 mls/hr IV NOW ONE Rx#: [id number] Output: Urine Amount (Catheter) 700 / 700 Yoo/Indwelling 700 / 700 Other: Weight 60.5 kg 60.5 kg Weight Measurement Method Chair Scale Built in [facility] Patient Weight 04/14/25 06:59 Weight 60.5 kg PG Care Time/CCT Total # of Minutes Spent Total Time Spent with Patient: Total time spent is greater than 50% in coordination of care (as documented) at patient's floor/unit and/or counseling patient: Coding Level of Care Code 06459 IN/OBS CONSULT LVL 5,80M Diagnoses Acute UTI (urinary tract infection) N39.0 Pneumonia J18.9 Elevated troponin R79.89 Time Spent (min) 50
[2025-04-13] MEDS ORDERED: HYDROCORTISONE SOD SUCCINATE 100 MG/2 ML VIAL IV SCH (09:00)
[2025-04-13 09:03] LABS: A calco-baum cmplx NotReported Not Detected (NotDetected); Bact fragilis Not Reported Not Detected (NotDetected); Blood Culture Id Panel See PCR Comment (NotDetected); C auris Not Reported Not Detected (NotDetected); Calbicans Not Reported Not Detected (NotDetected); Candida glabrata Not Reported Not Detected (NotDetected); Candida krusei Not Reported Not Detected (NotDetected); Cneoformans/gatti Not Reported Not Detected (NotDetected); Cparapsilosis Not Reported Not Detected (NotDetected); Ctropicalis Not Reported Not Detected (NotDetected); E cloacae compx Not Reported Not Detected (NotDetected); Efaecalis Not Reported Not Detected (NotDetected); Efaecium Not Reported Not Detected (NotDetected); Enterobacterales DETECTED (NotDetected); Enterobacterales Not Reported DETECTED (NotDetected); Escherichia coli Not Reported DETECTED (NotDetected); H influenzae Not Reported Not Detected (NotDetected); IMP Resistant Gene Not Detected (NotDetected); K aerogenes Not Reported Not Detected (NotDetected); KPC Resistant Gene Not Detected (NotDetected); Koxytoca Not Reported Not Detected (NotDetected); Kpneumoniae grp Not Reported Not Detected (NotDetected); Lmonocyt Not Reported Not Detected (NotDetected); N meningitidis Not Reported Not Detected (NotDetected); NDM Resistant Gene Not Detected (NotDetected); OXA 48 Like Resistant Gene Not Detected (NotDetected); P aeruginosa Not Reported Not Detected (NotDetected); Proteus spp Not Reported Not Detected (NotDetected); Salmonella spp Not Reported Not Detected (NotDetected); Staph lugdunensis Not Reported Not Detected (NotDetected); Staph spp. Not Reported Not Detected (NotDetected); Staphaureus Not Reported Not Detected (NotDetected); Staphepi Not Reported Not Detected (NotDetected); Stenmaltophilia Not Reported Not Detected (NotDetected); Strep agal(GrpB) Not Reported Not Detected (NotDetected); Strep pneum Not Reported Not Detected (NotDetected); Strep pyog (GrpA) Not Reported Not Detected (NotDetected); Strep spp Not Reported Not Detected (NotDetected); VIM Resistant Gene Not Detected (NotDetected); mcr-1 Colistin Resistant Gene Not Detected (NotDetected)
[2025-04-13 09:15] LABS: CTX-M Resistant Gene DETECTED (NotDetected)
[2025-04-13] MEDS: VANCOMYCIN 750 MG in SODIUM CHLORIDE 0.9% 250 ML IV SCH (09:35)
[2025-04-13] MEDS: MEROPENEM 2,000 MG OVER 3 HRS IV SCH (10:04)
[2025-04-13 12:16] LABS: ANTI-Xa, UFH(UnfractionatedHep 0.29 IU/ml (0.3-0.7)
[2025-04-13] MEDS: TUBE FEEDING WATER FLUSH PEG SCH (16:43)
[2025-04-13] MEDS: ERTAPENEM 1000MG 1,000 MG/10 ML SYR IV SCH (17:48)
--- NOTE | 2025-04-13 19:20 | Electrocardiogram Report ---
Test Reason : Blood Pressure : */* mmHG Vent. Rate : 108 BPM Atrial Rate : 108 BPM P-R Int : 162 ms QRS Dur : 74 ms QT Int : 356 ms P-R-T Axes : 33 -47 9 degrees QTcB Int : 477 ms Sinus tachycardia Left axis deviation Inferior infarct (cited on or before 10-Oct-2022) Anterior infarct , age undetermined Abnormal ECG When compared with ECG of 10-Oct-2022 00:45, Vent. rate has increased by 38 bpm Anterior infarct is now Present Nonspecific T wave abnormality now evident in Anterior leads Confirmed by Juan Alberto Syed ([id number]) on 04/13/2025 7:19:33 PM Referred By: REFERRED SELF Confirmed By: Juan Alberto Syed
[2025-04-13] MEDS: ATORVASTATIN 40 MG TAB PEG SCH (21:07)
[2025-04-13 21:22] LABS: ANTI-Xa, UFH(UnfractionatedHep 0.38 IU/ml (0.3-0.7)
[2025-04-14 06:39] LABS: Hematocrit (blood only) 34.4 % (37.0-47.0); Hemoglobin 11.5 g/dL (12.0-16.0); Mean Corpuscular Hemoglobin 31.1 pg (25.0-34.0); Mean Corpuscular Volume 93.0 fL (80.0-100.0); Platelet Count 103 K/uL (130-400); RDW Standard Deviation 43.7 fL (36.4-46.3); Red Blood Count 3.70 M/uL (4.20-5.40); White Blood Count 11.52 K/ul (4.8-10.8)
[2025-04-14 07:13] LABS: Anion Gap 6 (3-11); Blood Urea Nitrogen 23 mg/dl (6-23); Calcium 7.7 mg/dl (8.6-10.3); Carbon Dioxide 22 mmol/L (21-32); Chloride 113 mmol/L (98-107); Creatinine Clr Calc Pharmacy 64.1 ml/min; Glucose 190 mg/dl (70-99(Fasting)); Magnesium 1.9 mg/dl (1.7-2.4); Sodium 141 mmol/L (136-145)
[2025-04-14 08:46] LABS: ANTI-Xa, UFH(UnfractionatedHep 0.33 IU/ml (0.3-0.7)
--- NOTE | 2025-04-14 09:33 | Hospitalist Progress Note ---
Date of Service April 14, 2025 Assessment & Plan (1) Sepsis: Plan: Per admitting provider w/ addendum: 89 yo F who is skilled nursing resident with past med history significant for CVA with right MCA in 2021 and status post thrombectomy with left-sided hemiparesis and nonambulatory status, history of seizures, hypothyroidism, hypertension, hyperlipidemia, depression, GERD, osteoarthritis, history of gout who is on bolus tube feeds and also on pured diet was brought in because of confusion. Daughter in the room. Daughter was called today as patient had couple of vomiting last night. The skilled nursing sent urine sample. Daughter went in the afternoon and fed her. While daughter was feeding the patient was shaking which happened in the past when she had a UTI. And daughter got call again in the evening that the patient's symptoms progressed and getting more confused and was brought to the hospital. Patient opens eyes but not talking. As per the daughter last 2 days she has been confused but before that she was talking fine. No complaints of any pain. Seems normal bowel and bladder movements. Currently could not get any history from the patient. Sepsis Fever, leukocytosis, soft blood pressure, initial lactic acid 2.2 repeat is 1.3, UA is positive - on admission CT abdomen pelvis shows right lower lobe consolidation Sepsis most likely from UTI and pneumonia Received Vanco and cefepime in the ER. then zosyn on admission Ucultx, blood cultx positive for ESBL E.coli, pt was switched to ertapenem yesterday (04/13) IV fluids IV hydrocortisone stress dose as patient is chronically on prednisone Patient is DNR/DNI. admitting provider Confirmed with daughter Daughter says okay for pressors if needed Close monitoring hemodynamics in telemetry Metabolic encephalopathy Altered mental status Mostly from sepsis CT head shows old stroke Will monitor Elevated troponin Initial troponin 344 and repeat 526 Type II demand ischemia in the setting of acute urosepsis. EKG okay Low-dose IV heparin for now - cont. for 24 hrs per cardiology - will stop now obtained serial cardiac enzymes and echo Cardiology was consulted History of right MCA CVA Left-sided hemiparesis Bedbound On pured diet and also on bolus tube feeds Has PEG tube All the p.o. medicines per PEG tubes Continue aspirin and statin History of seizures Continue home Keppra Nutrition Usually on pureed Diet and bolus tube feeds initially n.p.o. and also holding tube feeds for possible aspiration, now tube feeds resumed Depression anxiety Continue fluoxetine Hypertension Holding amlodipine for sepsis Hypothyroidism On Synthyroid GERD IV PPI for now DVT prophylaxis Admission and Anticipated Discharge Date Admission Date: April 13, 2025 Subjective Pt seen in follow up of UTI, sepsis, ESBL bacteremia She was switched to ertapenem yesterday, currently afebrile, WBC down from 18K to 11K She seems more awake, sometimes answers questions Discussed w/ RN, reports pt was talking more today and daughter was at the bedside Review of Systems Review of Systems: All systems reviewed & are unremarkable except as noted in Subjective Physical Exam Physical Exam: General- more awake today, in NAD, occasionally answers questions Head- atraumatic Eyes- PERRL. Neck- supple, no JVD. Lungs- clear to auscultation no wheezing or crackles Heart- regular rhythm; no murmur Abdomen- normal bowel sounds, soft, nontender, no distension, PEG tube site ok Extremities- no pretibial edema, no erythema seen Neuro- more awake, occasionally answers questions, PERRL Results & Data Results & Data Vital Signs (Past 12 Hours) Vital Signs Temp Pulse Pulse Resp BP Pulse Ox O2 Del Method 04/14/25 06:59 36.5 C 70 16 158/92 H 95 Room Air 04/14/25 03:48 36.4 C L 57 L 16 153/77 H 98 Room Air 04/13/25 22:56 36.3 C L 70 18 153/86 H 98 Room Air 04/13/25 22:29 57 L 04/13/25 22:25 63 Laboratory Results 04/14/25 04/14/25 04/13/25 Range/Units 07:34 06:03 20:50 WBC 11.52 H (4.8-10.8) K/ul RBC 3.70 L (4.20-5.40) M/uL Hgb 11.5 L (12.0-16.0) g/dL Hct 34.4 L (37.0-47.0) % MCV 93.0 (80.0-100.0) fL MCH 31.1 (25.0-34.0) pg MCHC 33.4 (32.0-36.0) g/dL RDW Std Deviation 43.7 (36.4-46.3) fL RDW Coeff of Cheryl 13.0 (11.5-14.5) % Plt Count 103 L (130-400) K/uL MPV 11.4 (9.4-12.4) fL Heparin Anti-Xa, Unfract 0.33 0.38 (0.3-0.7) IU/ml Sodium 141 (136-145) mmol/L Potassium 3.7 TNP Chloride 113 H (98-107) mmol/L Carbon Dioxide 22 (21-32) mmol/L Anion Gap 6 (3-11) BUN 23 (6-23) mg/dl Creatinine 0.48 L (0.6-1.2) mg/dl Est Cr Clr Drug Dosing 64.1 ml/min eGFR 91.05 BUN/Creatinine Ratio 47.9 H (10-20) Glucose 190 H (70-99(Fasting)) mg/dl Calcium 7.7 L (8.6-10.3) mg/dl Phosphorus 2.5 (2.5-4.9) mg/dl Magnesium 1.9 (1.7-2.4) mg/dl Troponin I High Sens (0-14) pg/ml Nasal Screen MRSA (PCR) (Negative) 04/13/25 04/13/25 04/13/25 Range/Units 17:25 11:02 11:00 WBC (4.8-10.8) K/ul RBC (4.20-5.40) M/uL Hgb (12.0-16.0) g/dL Hct (37.0-47.0) % MCV (80.0-100.0) fL MCH (25.0-34.0) pg MCHC (32.0-36.0) g/dL RDW Std Deviation (36.4-46.3) fL RDW Coeff of Cheryl (11.5-14.5) % Plt Count (130-400) K/uL MPV (9.4-12.4) fL Heparin Anti-Xa, Unfract Cancelled 0.29 L (0.3-0.7) IU/ml Sodium (136-145) mmol/L Potassium Chloride (98-107) mmol/L Carbon Dioxide (21-32) mmol/L Anion Gap (3-11) BUN (6-23) mg/dl Creatinine (0.6-1.2) mg/dl Est Cr Clr Drug Dosing ml/min eGFR BUN/Creatinine Ratio (10-20) Glucose (70-99(Fasting)) mg/dl Calcium (8.6-10.3) mg/dl Phosphorus (2.5-4.9) mg/dl Magnesium (1.7-2.4) mg/dl Troponin I High Sens 126.8 H* D 163.9 H* D (0-14) pg/ml Nasal Screen MRSA (PCR) Negative (Negative) Medications Administered Current Inpatient Medications Acetaminophen (Acetaminophen 325 Mg Tab) 650 mg PEG Q6H PRN PRN Reason: Pain or Fever Stop: 05/13/25 04:06 Aspirin (Aspirin 81 Mg Ectab) 81 mg PO QAM [facility] Stop: 05/13/25 08:59 Last Admin: 04/14/25 08:46 Dose: 81 mg Atorvastatin Calcium (Atorvastatin 40 Mg Tab) 40 mg PEG HS [facility] Stop: 05/13/25 20:59 Last Admin: 04/13/25 21:07 Dose: 40 mg Enteral Nutritional Formula (Fibersource Hn 1.2 Hakeem 1000 Ml Bag) 1,000 ml GT .See Protocol [facility]; Protocol Stop: 05/13/25 16:14 Fluoxetine HCl (Fluoxetine Hcl 10 Mg Cap) 10 mg PO QAM [facility] Stop: 05/13/25 08:59 Last Admin: 04/14/25 08:46 Dose: 10 mg Sodium Chloride (Nss) 1,000 mls @ 125 mls/hr IV .Q8H [facility] Stop: 04/16/25 04:06 Last Admin: 04/14/25 05:30 Dose: 125 mls/hr Acetaminophen (Ofirmev) 1,000 mg in 100 mls @ 400 mls/hr IV Q8H PRN PRN Reason: Pain or Fever Stop: 04/16/25 04:06 Heparin Sodium/Dextrose (Heparin 25824 Unit/500 Ml D5w) 25,000 units in 500 mls @ 14 mls/hr IV .Q24H [facility]; Protocol Stop: 05/13/25 04:06 Last Admin: 04/14/25 09:08 Dose: 700 units/hr, 14 mls/hr Hydrocortisone Sodium (Succinate 100 mg/ Syringe) 2 mls @ 4 mls/min IV Q8H [facility] Stop: 05/13/25 07:59 Last Admin: 04/14/25 08:45 Dose: 4 mls/min Pantoprazole Sodium (Protonix) 40 mg in 10 mls @ 5 mls/min IV DAILY [facility] Stop: 05/13/25 08:59 Last Admin: 04/13/25 08:22 Dose: 5 mls/min Ertapenem (Invanz 1000mg) 1,000 mg in 10 mls @ 2 mls/min IV Q24H [facility] Stop: 04/27/25 17:59 Last Admin: 04/13/25 17:48 Dose: 2 mls/min Levetiracetam (Levetiracetam Oral Soln 100mg/Ml) 500 mg PEG BID [facility] Stop: 05/13/25 08:59 Last Admin: 04/14/25 08:46 Dose: 500 mg Levothyroxine Sodium (Levothyroxine Sodium 75 Mcg Tablet) 75 mcg PEG DAILYBB [facility] Stop: 05/13/25 06:29 Last Admin: 04/14/25 05:30 Dose: 75 mcg Nitroglycerin (Nitroglycerin Sl 0.4 Mg/Tab Tab) 0.4 mg SL Q5M PRN PRN Reason: Chest Pain Stop: 05/13/25 04:06 Ondansetron HCl (Ondansetron Inj 2 Mg/Ml 2 Ml Vial) 4 mg IV Q6H PRN PRN Reason: Nausea Stop: 05/13/25 04:06 Sodium Chloride (Sodium Chloride 1 Gm Tablet) 1 gm PO QAM [facility] Stop: 05/13/25 08:59 Last Admin: 04/14/25 08:46 Dose: 1 gm Sterile Water (Tube Feeding Water Flush) 125 ml PEG Q4H [facility] Stop: 05/13/25 16:14 Last Admin: 04/14/25 08:50 Dose: 125 ml
[2025-04-14] MEDS: POLYETHYLENE (MIRALAX) 17 GM PACK PEG SCH (17:00)
[2025-04-15 06:32] LABS: Hematocrit (blood only) 33.6 % (37.0-47.0); Hemoglobin 11.1 g/dL (12.0-16.0); Mean Corpuscular Hemoglobin 30.8 pg (25.0-34.0); Mean Corpuscular Volume 93.3 fL (80.0-100.0); Platelet Count 119 K/uL (130-400); RDW Standard Deviation 44.8 fL (36.4-46.3); Red Blood Count 3.60 M/uL (4.20-5.40); White Blood Count 9.11 K/ul (4.8-10.8)
[2025-04-15 06:52] LABS: Anion Gap 7.0 (3-11); Blood Urea Nitrogen 25.0 mg/dl (6-23); Calcium 7.7 mg/dl (8.6-10.3); Carbon Dioxide 19.0 mmol/L (21-32); Chloride 115.0 mmol/L (98-107); Creatinine Clr Calc Pharmacy 81.2 ml/min; Glucose 177.0 mg/dl (70-99(Fasting)); Magnesium 1.8 mg/dl (1.7-2.4); Potassium 3.7 mmol/L (3.5-5.1); Sodium 141.0 mmol/L (136-145)
[2025-04-15] MEDS ORDERED: POTASSIUM PHOS 3 MMOL/1 ML INFUSION IV STA (07:31)
--- NOTE | 2025-04-15 07:32 | Hospitalist Progress Note ---
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 Daughter in the room. Daughter was called today as patient had couple of vomiting last night. The senior care sent urine sample. Daughter went in the afternoon and fed her. While daughter was feeding the patient was shaking which happened in the past when she had a UTI. And daughter got call again in the evening that the patient's symptoms progressed and getting more confused and was brought to the hospital. Patient opens eyes but not talking. As per the daughter last 2 days she has been confused but before that she was talking fine. No complaints of any pain. Seems normal bowel and bladder movements. Currently could not get any history from the patient. Sepsis Fever, leukocytosis, soft blood pressure, initial lactic acid 2.2 repeat is 1.3, UA is positive - on admission CT abdomen pelvis shows right lower lobe consolidation Sepsis most likely from UTI and pneumonia Received Vanco and cefepime in the ER. then zosyn on admission Ucultx, blood cultx positive for ESBL E.coli, pt was switched to ertapenem on (04/13) Will discuss w/ ID length of abx treatment IV fluids IV hydrocortisone stress dose as patient is chronically on prednisone Patient is DNR/DNI. admitting provider Confirmed with daughter Daughter says okay for pressors if needed Close monitoring hemodynamics in telemetry Metabolic encephalopathy Altered mental status Mostly from sepsis CT head shows old stroke Seems as mental status close to baseline Elevated troponin Initial troponin 344 and repeat 526 Type II demand ischemia in the setting of acute urosepsis. EKG okay Low-dose IV heparin for now - cont. for 24 hrs per cardiology - stopped now obtained serial cardiac enzymes and echo Cardiology was consulted History of right MCA CVA Left-sided hemiparesis Bedbound On pured diet and also on bolus tube feeds Has PEG tube All the p.o. medicines per PEG tubes Continue aspirin and statin History of seizures Continue home Keppra Nutrition Usually on pureed Diet and bolus tube feeds initially n.p.o. and also holding tube feeds for possible aspiration, now tube feeds resumed Depression anxiety Continue fluoxetine Hypertension Holding amlodipine for sepsis Hypothyroidism On Synthyroid GERD IV PPI for now DVT prophylaxis Admission and Anticipated Discharge Date Admission Date: April 13, 2025 Subjective Pt seen in follow up of UTI, sepsis, ESBL bacteremia She was switched to ertapenem currently afebrile, WBC down from 18K to 9K - normalized She seems more awake, sometimes answers questions Discussed w/ RN, reports pt was talking more today and daughter was at the bedside in the morning Review of Systems Review of Systems: All systems reviewed & are unremarkable except as noted in Subjective Physical Exam Physical Exam: General- more awake today, in NAD, occasionally answers questions Head- atraumatic Eyes- PERRL. Neck- supple, no JVD. Lungs- clear to auscultation no wheezing or crackles Heart- regular rhythm; no murmur Abdomen- normal bowel sounds, soft, nontender, no distension, PEG tube site ok Extremities- no pretibial edema, no erythema seen Neuro- more awake, occasionally answers questions, PERRL Results & Data Results & Data Vital Signs (Past 12 Hours) Vital Signs Temp Pulse Pulse Resp BP Pulse Ox O2 Del Method 04/15/25 03:26 36.3 C L 51 L 18 166/80 H 98 Room Air 04/14/25 23:17 36.3 C L 49 L 18 167/75 H 98 Room Air 04/14/25 21:37 45 L 04/14/25 20:00 Room Air Laboratory Results 04/15/25 04/14/25 Range/Units 06:17 07:34 WBC 9.11 (4.8-10.8) K/ul RBC 3.60 L (4.20-5.40) M/uL Hgb 11.1 L (12.0-16.0) g/dL Hct 33.6 L (37.0-47.0) % MCV 93.3 (80.0-100.0) fL MCH 30.8 (25.0-34.0) pg MCHC 33.0 (32.0-36.0) g/dL RDW Std Deviation 44.8 (36.4-46.3) fL RDW Coeff of Cheryl 12.9 (11.5-14.5) % Plt Count 119 L (130-400) K/uL MPV 11.1 (9.4-12.4) fL Heparin Anti-Xa, Unfract 0.33 (0.3-0.7) IU/ml Sodium 141 (136-145) mmol/L Potassium 3.7 3.7 (3.5-5.1) mmol/L Chloride 115 H (98-107) mmol/L Carbon Dioxide 19 L (21-32) mmol/L Anion Gap 7 (3-11) BUN 25 H (6-23) mg/dl Creatinine 0.41 L (0.6-1.2) mg/dl Est Cr Clr Drug Dosing 81.2 ml/min eGFR 94.57 BUN/Creatinine Ratio 61.0 H (10-20) Glucose 177 H (70-99(Fasting)) mg/dl Calcium 7.7 L (8.6-10.3) mg/dl Phosphorus 1.5 L* D (2.5-4.9) mg/dl Magnesium 1.8 (1.7-2.4) mg/dl Medications Administered Current Inpatient Medications Acetaminophen (Acetaminophen 325 Mg Tab) 650 mg PEG Q6H PRN PRN Reason: Pain or Fever Stop: 05/13/25 04:06 Aspirin (Aspirin 81 Mg Ectab) 81 mg PO [facility] Stop: 05/13/25 08:59 Last Admin: 04/14/25 08:46 Dose: 81 mg Atorvastatin Calcium (Atorvastatin 40 Mg Tab) 40 mg PEG HS [facility] Stop: 05/13/25 20:59 Last Admin: 04/14/25 20:46 Dose: 40 mg Enteral Nutritional Formula (Fibersource Hn 1.2 Hakeem 1000 Ml Bag) 1,000 ml GT .See Protocol [facility]; Protocol Stop: 05/13/25 16:14 Fluoxetine HCl (Fluoxetine Hcl 10 Mg Cap) 10 mg PO QAM [facility] Stop: 05/13/25 08:59 Last Admin: 04/14/25 08:46 Dose: 10 mg Acetaminophen (Ofirmev) 1,000 mg in 100 mls @ 400 mls/hr IV Q8H PRN PRN Reason: Pain or Fever Stop: 04/16/25 04:06 Hydrocortisone Sodium (Succinate 100 mg/ Syringe) 2 mls @ 4 mls/min IV Q8H [facility] Stop: 05/13/25 07:59 Last Admin: 04/15/25 00:43 Dose: 4 mls/min Pantoprazole Sodium (Protonix) 40 mg in 10 mls @ 5 mls/min IV DAILY [facility] Stop: 05/13/25 08:59 Last Admin: 04/14/25 09:44 Dose: 5 mls/min Ertapenem (Invanz 1000mg) 1,000 mg in 10 mls @ 2 mls/min IV Q24H [facility] Stop: 04/27/25 17:59 Last Admin: 04/14/25 17:51 Dose: 2 mls/min Levetiracetam (Levetiracetam Oral Soln 100mg/Ml) 500 mg PEG BID [facility] Stop: 05/13/25 08:59 Last Admin: 04/14/25 20:45 Dose: 500 mg Levothyroxine Sodium (Levothyroxine Sodium 75 Mcg Tablet) 75 mcg PEG DAILYBB [facility] Stop: 05/13/25 06:29 Last Admin: 04/15/25 06:28 Dose: 75 mcg Nitroglycerin (Nitroglycerin Sl 0.4 Mg/Tab Tab) 0.4 mg SL Q5M PRN PRN Reason: Chest Pain Stop: 05/13/25 04:06 Ondansetron HCl (Ondansetron Inj 2 Mg/Ml 2 Ml Vial) 4 mg IV Q6H PRN PRN Reason: Nausea Stop: 05/13/25 04:06 Polyethylene Glycol (Polyethylene (Miralax) 17 Gm Pack) 17 gm PEG DAILY [facility] Stop: 05/14/25 16:29 Last Admin: 04/14/25 17:00 Dose: 17 gm Potassium Phosphate (Potassium Phos 3 Mmol/1 Ml Infusion) 15 mmol IV NOW STA Stop: 04/15/25 07:32 Sodium Chloride (Sodium Chloride 1 Gm Tablet) 1 gm PO QAM [facility] Stop: 05/13/25 08:59 Last Admin: 04/14/25 08:46 Dose: 1 gm Sterile Water (Tube Feeding Water Flush) 125 ml PEG Q4H [facility] Stop: 05/13/25 16:14 Last Admin: 04/15/25 04:15 Dose: 125 ml
[2025-04-15] MEDS: POTASSIUM PHOSPHATE 15 MMOL in SODIUM CHLORIDE 0.9% 250 ML IV ONE (08:23)
[2025-04-15] MEDS: FIBERSOURCE HN 1.2 CAL 1000 ML BAG GT SCH (16:28)
[2025-04-15] MEDS: HYDROCORTISONE SOD 100 MG in SYRINGE 0 ML IV SCH (21:02)
[2025-04-16 06:08] LABS: Hematocrit (blood only) 34.8 % (37.0-47.0); Hemoglobin 11.8 g/dL (12.0-16.0); Mean Corpuscular Hemoglobin 31.3 pg (25.0-34.0); Mean Corpuscular Volume 92.3 fL (80.0-100.0); Platelet Count 138 K/uL (130-400); RDW Standard Deviation 43.3 fL (36.4-46.3); Red Blood Count 3.77 M/uL (4.20-5.40); White Blood Count 9.97 K/ul (4.8-10.8)
[2025-04-16 06:29] LABS: Anion Gap 6.0 (3-11); Blood Urea Nitrogen 24.0 mg/dl (6-23); Calcium 8.0 mg/dl (8.6-10.3); Carbon Dioxide 22.0 mmol/L (21-32); Chloride 115.0 mmol/L (98-107); Creatinine Clr Calc Pharmacy 88.0 ml/min; Glucose 181.0 mg/dl (70-99(Fasting)); Magnesium 1.9 mg/dl (1.7-2.4); Potassium 3.7 mmol/L (3.5-5.1); Sodium 143.0 mmol/L (136-145)
[2025-04-16] MEDS ORDERED: POTASSIUM PHOS 3 MMOL/1 ML INFUSION IV STA (07:09)
[2025-04-16] MEDS: POTASSIUM PHOSPHATE 15 MMOL in SODIUM CHLORIDE 0.9% 250 ML IV ONE (07:35)
[2025-04-16] MEDS: ASPIRIN 81 MG CHEW PEG SCH (07:49)
[2025-04-16] MEDS: ASPIRIN 81 MG CHEW ONE (07:56)
--- NOTE | 2025-04-16 11:21 | Hospitalist Progress Note ---
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 Daughter in the room. Daughter was called today as patient had couple of vomiting last night. The detention sent urine sample. Daughter went in the afternoon and fed her. While daughter was feeding the patient was shaking which happened in the past when she had a UTI. And daughter got call again in the evening that the patient's symptoms progressed and getting more confused and was brought to the hospital. Patient opens eyes but not talking. As per the daughter last 2 days she has been confused but before that she was talking fine. No complaints of any pain. Seems normal bowel and bladder movements. Currently could not get any history from the patient. Sepsis Fever, leukocytosis, soft blood pressure, initial lactic acid 2.2 repeat is 1.3, UA is positive - on admission CT abdomen pelvis shows right lower lobe consolidation Sepsis most likely from UTI and pneumonia Received Vanco and cefepime in the ER. then zosyn on admission Ucultx, blood cultx positive for ESBL E.coli, pt was switched to ertapenem on (04/13) Pt afebrile, WBC now normalized, mental status seems back to baseline Will discuss w/ ID length of abx treatment IV fluids IV hydrocortisone stress dose as patient is chronically on prednisone Patient is DNR/DNI. admitting provider Confirmed with daughter Daughter says okay for pressors if needed Close monitoring hemodynamics in telemetry Metabolic encephalopathy Altered mental status Mostly from sepsis CT head shows old stroke Seems as mental status close to baseline Elevated troponin Initial troponin 344 and repeat 526 Type II demand ischemia in the setting of acute urosepsis. EKG okay Low-dose IV heparin for now - cont. for 24 hrs per cardiology - stopped now obtained serial cardiac enzymes and echo Cardiology was consulted History of right MCA CVA Left-sided hemiparesis Bedbound On pured diet and also on bolus tube feeds Has PEG tube All the p.o. medicines per PEG tubes Continue aspirin and statin History of seizures Continue home Keppra Nutrition Usually on pureed Diet and bolus tube feeds tube feeds resumed Depression anxiety Continue fluoxetine Hypertension Holding amlodipine for sepsis Hypothyroidism On Synthyroid GERD IV PPI for now DVT prophylaxis Admission and Anticipated Discharge Date Admission Date: April 13, 2025 Subjective Pt seen in follow up of UTI, sepsis, ESBL bacteremia She was switched to ertapenem currently afebrile, WBC down from 18K to 9K - normalized She is more awake, answers all the questions this AM, and answers appropriately. Follows commands. Denies any abd. pain, denies any chest pain or shortness of breath. Review of Systems Review of Systems: All systems reviewed & are unremarkable except as noted in Subjective Physical Exam Physical Exam: General- more awake today, in NAD, answers questions, follows commands Head- atraumatic Eyes- PERRL. Neck- supple, no JVD. Lungs- clear to auscultation no wheezing or crackles Heart- regular rhythm; no murmur Abdomen- normal bowel sounds, soft, nontender, no distension, PEG tube site ok Extremities- no pretibial edema, no erythema seen Neuro- more awake, answers questions, follows commands, speech fluent, PERRL Results & Data Results & Data Vital Signs (Past 12 Hours) Vital Signs Temp Pulse Pulse Resp BP Pulse Ox O2 Del Method 04/16/25 10:45 36.4 C L 46 L 18 162/81 H 99 Room Air 04/16/25 08:00 36.8 C 50 L 18 111/84 99 Room Air 04/16/25 02:55 51 L 16 156/69 H 98 Room Air Laboratory Results 04/16/25 Range/Units 05:27 WBC 9.97 (4.8-10.8) K/ul RBC 3.77 L (4.20-5.40) M/uL Hgb 11.8 L (12.0-16.0) g/dL Hct 34.8 L (37.0-47.0) % MCV 92.3 (80.0-100.0) fL MCH 31.3 (25.0-34.0) pg MCHC 33.9 (32.0-36.0) g/dL RDW Std Deviation 43.3 (36.4-46.3) fL RDW Coeff of Cheryl 12.8 (11.5-14.5) % Plt Count 138 (130-400) K/uL MPV 11.5 (9.4-12.4) fL Sodium 143 (136-145) mmol/L Potassium 3.7 (3.5-5.1) mmol/L Chloride 115 H (98-107) mmol/L Carbon Dioxide 22 (21-32) mmol/L Anion Gap 6 (3-11) BUN 24 H (6-23) mg/dl Creatinine 0.38 L (0.6-1.2) mg/dl Est Cr Clr Drug Dosing 88.0 ml/min eGFR 96.32 BUN/Creatinine Ratio 63.2 H (10-20) Glucose 181 H (70-99(Fasting)) mg/dl Calcium 8.0 L (8.6-10.3) mg/dl Phosphorus 1.8 L (2.5-4.9) mg/dl Magnesium 1.9 (1.7-2.4) mg/dl Medications Administered Current Inpatient Medications Acetaminophen (Acetaminophen 325 Mg Tab) 650 mg PEG Q6H PRN PRN Reason: Pain or Fever Stop: 05/13/25 04:06 Amlodipine Besylate (Amlodipine Besylate 5 Mg Tab) 2.5 mg PEG QAM [facility] Stop: 05/16/25 08:59 Last Admin: 04/16/25 07:40 Dose: 2.5 mg Aspirin (Aspirin 81 Mg Chew) 81 mg PEG QAM [facility] Stop: 05/16/25 08:59 Last Admin: 04/16/25 07:49 Dose: 81 mg Atorvastatin Calcium (Atorvastatin 40 Mg Tab) 40 mg PEG HS [facility] Stop: 05/13/25 20:59 Last Admin: 04/15/25 20:42 Dose: 40 mg Diclofenac Sodium (Diclofenac Sod 1% Gel 100 Gm Tube) 2 gm EXT BID [facility]; Protocol Stop: 05/16/25 11:29 Enteral Nutritional Formula (Fibersource Hn 1.2 Hakeem 1000 Ml Bag) 1,000 ml GT .See Protocol [facility]; Protocol Stop: 05/13/25 16:14 Last Admin: 04/15/25 16:28 Dose: 1,000 ml Fluoxetine HCl (Fluoxetine Hcl 10 Mg Cap) 10 mg PO QAM [facility] Stop: 05/13/25 08:59 Last Admin: 04/16/25 07:40 Dose: 10 mg Pantoprazole Sodium (Protonix) 40 mg in 10 mls @ 5 mls/min IV DAILY [facility] Stop: 05/13/25 08:59 Last Admin: 04/16/25 07:49 Dose: 5 mls/min Ertapenem (Invanz 1000mg) 1,000 mg in 10 mls @ 2 mls/min IV Q24H [facility] Stop: 04/27/25 17:59 Last Admin: 04/15/25 18:44 Dose: 2 mls/min Hydrocortisone Sodium (Succinate 100 mg/ Syringe) 2 mls @ 4 mls/min IV Q12H [facility] Stop: 05/15/25 19:59 Last Admin: 04/15/25 21:02 Dose: 4 mls/min Levetiracetam (Levetiracetam Oral Soln 100mg/Ml) 500 mg PEG BID [facility] Stop: 05/13/25 08:59 Last Admin: 04/16/25 07:41 Dose: 500 mg Levothyroxine Sodium (Levothyroxine Sodium 75 Mcg Tablet) 75 mcg PEG DAILYBB [facility] Stop: 05/13/25 06:29 Last Admin: 04/16/25 06:09 Dose: 75 mcg Nitroglycerin (Nitroglycerin Sl 0.4 Mg/Tab Tab) 0.4 mg SL Q5M PRN PRN Reason: Chest Pain Stop: 05/13/25 04:06 Ondansetron HCl (Ondansetron Inj 2 Mg/Ml 2 Ml Vial) 4 mg IV Q6H PRN PRN Reason: Nausea Stop: 05/13/25 04:06 Polyethylene Glycol (Polyethylene (Miralax) 17 Gm Pack) 17 gm PEG DAILY [facility] Stop: 05/14/25 16:29 Last Admin: 04/16/25 07:40 Dose: 17 gm Sodium Chloride (Sodium Chloride 1 Gm Tablet) 1 gm PO QAM [facility] Stop: 05/13/25 08:59 Last Admin: 04/16/25 07:40 Dose: 1 gm Sterile Water (Tube Feeding Water Flush) 125 ml PEG Q4H [facility] Stop: 05/13/25 16:14 Last Admin: 04/16/25 07:49 Dose: 125 ml
[2025-04-16] MEDS: DICLOFENAC SOD 1% GEL 100 GM TUBE EXT SCH (11:50)
[2025-04-16] MEDS ORDERED: Nursing to Pharmacy Communication SCH (14:00)
[2025-04-16] MEDS: ACETAMINOPHEN 1,000 MG/100 ML VIAL IV PRN (14:20)
--- NOTE | 2025-04-16 15:25 | Infectious Disease Consult ---
Date of Service April 16, 2025 Telehealth Information I performed this visit using a real-time telehealth connection between my location and the patients location ([facility]). After connecting through interactive tele-video, patient was identified by name and date of and/or wristband check.Patient (or authorized healthcare group sales representative) was informed that this was a telemedicine visit and it was being conducted confidentially over secure lines. My office door was closed and no one else was present in the room with me.Patient (or authorized healthcare group sales representative) provided consent to proceed with the visit, expressed an understanding of privacy and security of the telemedicine visit, and gave permission to have a hospital group sales representative in the room in order to assist with the visit and to conduct portions of the visit, as needed. I informed the patient (or authorized healthcare group sales representative) that I reviewed their record and presented the opportunity for them to ask any questions regarding the visit today. The patient agreed to participate. Assessment & Plan (1) E coli bacteremia: (2) Complicated UTI (urinary tract infection): (3) Acute non-ST elevation myocardial infarction (NSTEMI): (4) Sepsis: (5) History of CVA (cerebrovascular accident): Plan Please continue on IV ertapenem 1 g daily to complete a course of 10 days with anticipated end date of 04/22/2025. History of Present Illness History of Present Illness 89-year-old woman, [facility] resident, with multiple comorbidities including CVA with right MCA stroke, residual left-sided hemiparesis and nonambulatory at baseline, HTN, and major depressive disorder who was admitted to [facility] on 04/13 because of acute encephalopathy. On presentation she was febrile at 38.4 and tachycardic at 115. Initial workup showed leukocytosis of 18 (ANC 16.6), elevated lactic acid at 2.2, and elevated troponin at 344, UA showed more than 50 WBCs and 4+ bacteria. Shortly after admission, blood culture came back positive for ESBL E coli. Urine culture later grew ESBL E coli and Klebsiella pneumoniae. Allergies Allergy/AdvReac Type Severity Reaction Status Date / Time allopurinol Allergy Unknown Unknown Verified 04/12/25 21:28 lisinopril AdvReac Intermediate Cough Verified 04/12/25 21:28 Home Medications Medication Instructions Recorded Confirmed Type amlodipine 2.5 mg tablet 2.5 mg feeding tube QAM 10/09/22 04/12/25 History aspirin 81 mg tablet,delayed 81 mg feeding tube QAM 10/09/22 04/12/25 History release atorvastatin 40 mg tablet 40 mg feeding tube HS 10/09/22 04/12/25 History fluoxetine 10 mg capsule 10 mg feeding tube QAM 10/09/22 04/12/25 History lactose-reduced food with fiber 1 ea feeding tube BID 10/09/22 04/12/25 History 0.06 gram-1.2 kcal/mL oral liquid (Jevity 1.2 Hakeem) levothyroxine 75 mcg tablet 75 mcg feeding tube DAILYBB 10/09/22 04/12/25 History sodium chloride 1,000 mg soluble 1,000 mg feeding tube QAM 10/09/22 04/12/25 History tablet levetiracetam 100 mg/mL oral 500 mg (5 mL) PEG BID #60 mL 10/11/22 04/12/25 Rx solution (Keppra) acetaminophen 325 mg tablet 650 mg feeding tube Q6H PRN 04/12/25 04/12/25 Hist ory (Tylenol) PAIN/FEVER omeprazole 20 mg tablet,delayed 20 mg DAILY 04/12/25 04/12/25 History release prednisone 5 mg tablet 5 mg feeding tube DAILY 04/12/25 04/12/25 History promethazine 25 mg/mL injection 25 mg IM Q6H PRN NAUSEA/VOMITING 04/12/25 04/12/25 History solution (Phenergan) Patient History Medical History HTN (hypertension) No pertinent family history HLD (hyperlipidemia) Surgical History No pertinent past surgical history Social History Smoking Status: Never smoker Do You Dip or Chew Tobacco: No; Hx Alcohol Use: No Hx Substance Use: No Preferred Language: Citizen Of [place] Communication Ability: Effective Equipment Sterilizer Required: No Beliefs That Will Affect Care: None Current Living Situation: Group Home Current Living Situation Comment: Patient lives with daughter and son in law. Feels Safe at Home: Yes Assistive Devices: Mechanical Lift, Walker and Other Review of Systems Negative except for what was mentioned in the H&P. Physical Exam Could not be performed as the visit was conducted via TeleMed. Results & Data Vital Signs (Past 12 Hours) Vital Signs Temp Pulse Resp BP Pulse Ox O2 Del Method 04/16/25 10:45 36.4 C L 46 L 18 162/81 H 99 Room Air 04/16/25 08:00 Room Air 04/16/25 08:00 36.8 C 50 L 18 111/84 99 Room Air Laboratory Results 04/12: 2 of 4 bottles of blood culture growing ESBL E coli 04/12: Urine culture growing ESBL E coli and Klebsiella pneumoniae Diagnostic Findings CT abdomen pelvis on 04/12: 1. 3.5 cm patchy infiltrate and partial consolidation of the right lower lobe suspicious for pneumonia. 2. 7.1 cm of stool in the rectum suggesting constipation. No other dilated bowel loops are identified. There is diverticulosis of the sigmoid colon without evidence of acute diverticulitis. The right and transverse colon are contracted which gives the appearance of mild wall thickening. No definite surrounding inflammation but mild colitis can not be excluded. 3. 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 4. Nonobstructive 4 mm calculus in the right kidney. No hydronephrosis or ureterolithiasis is seen involving either kidney
[2025-04-17 05:00] LABS: Hematocrit (blood only) 37.4 % (37.0-47.0); Hemoglobin 12.6 g/dL (12.0-16.0); Mean Corpuscular Hemoglobin 31.3 pg (25.0-34.0); Mean Corpuscular Volume 93.0 fL (80.0-100.0); Platelet Count 179 K/uL (130-400); RDW Standard Deviation 43.8 fL (36.4-46.3); Red Blood Count 4.02 M/uL (4.20-5.40); White Blood Count 13.54 K/ul (4.8-10.8)
[2025-04-17 05:16] LABS: Anion Gap 4.0 (3-11); Blood Urea Nitrogen 23.0 mg/dl (6-23); Calcium 8.0 mg/dl (8.6-10.3); Carbon Dioxide 25.0 mmol/L (21-32); Chloride 112.0 mmol/L (98-107); Creatinine Clr Calc Pharmacy 68.3 ml/min; Glucose 109.0 mg/dl (70-99(Fasting)); Magnesium 1.8 mg/dl (1.7-2.4); Potassium 3.3 mmol/L (3.5-5.1); Sodium 141.0 mmol/L (136-145)
[2025-04-17] MEDS ORDERED: POTASSIUM PHOS 3 MMOL/1 ML INFUSION IV STA (09:00)
--- NOTE | 2025-04-17 10:42 | Palliative Care Consultation ---
Date of Consultation April 17, 2025 Assessment & Plan (1) Weakness generalized: (2) Altered mental status: (3) Palliative care by specialist: Plan Ines is not decisional and remains unable to engage in the clinical encounter. Called dtr, no answer but family meeting is needed. My partner Stefani Lorenz will be covering inpatient service and will follow up tomorrow. I will be out of office beginning tomorrow, 04/18 returning to [facility] 05/01/25. Thank you for allowing us to participate in the ongoing care of this patient. Please page with any additional concerns. Delio Ortiz DNP Director, Palliative Medicine History of Present Illness Reason for Consultation: goals of care, sympt. management Attending Physician: Tremayne oMser MD History of Present Illness Ines is an 89 yo female admitted [facility] from [facility] with AMS. 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 The [facility] sent urine sample. Daughter went in the afternoon and fed her. While daughter was feeding the patient was shaking which happened in the past when she had a UTI. And daughter got call again in the evening that the patient's symptoms progressed and getting more confused and was brought to the hospital. Patient opens eyes but not talking. As per the daughter last 2 days she has been confused" At time of my visit, pt is in room alone, no family present. She cannot follow commands, does not converse, +lethargy Allergies Allergy/AdvReac Type Severity Reaction Status Date / Time allopurinol Allergy Unknown Unknown Verified 04/12/25 21:28 lisinopril AdvReac Intermediate Cough Verified 04/12/25 21:28 Home Medications Medication Instructions Recorded Confirmed Type amlodipine 2.5 mg tablet 2.5 mg feeding tube QAM 10/09/22 04/12/25 History aspirin 81 mg tablet,delayed 81 mg feeding tube QAM 10/09/22 04/12/25 History release atorvastatin 40 mg tablet 40 mg feeding tube HS 10/09/22 04/12/25 History fluoxetine 10 mg capsule 10 mg feeding tube QAM 10/09/22 04/12/25 History lactose-reduced food with fiber 1 ea feeding tube BID 10/09/22 04/12/25 History 0.06 gram-1.2 kcal/mL oral liquid (Jevity 1.2 Hakeem) levothyroxine 75 mcg tablet 75 mcg feeding tube DAILYBB 10/09/22 04/12/25 History sodium chloride 1,000 mg soluble 1,000 mg feeding tube QAM 10/09/22 04/12/25 History tablet levetiracetam 100 mg/mL oral 500 mg (5 mL) PEG BID #60 mL 10/11/22 04/12/25 Rx solution (Keppra) acetaminophen 325 mg tablet 650 mg feeding tube Q6H PRN 04/12/25 04/12/25 History (Tylenol) PAIN/FEVER omeprazole 20 mg tablet,delayed 20 mg DAILY 04/12/25 04/12/25 History release prednisone 5 mg tablet 5 mg feeding tube DAILY 04/12/25 04/12/25 History promethazine 25 mg/mL injection 25 mg IM Q6H PRN NAUSEA/VOMITING 04/12/25 04/12/25 History solution (Phenergan) Patient History Medical History HTN (hypertension) No pertinent family history HLD (hyperlipidemia) Surgical History No pertinent past surgical history Social History Smoking Status: Never smoker Do You Dip or Chew Tobacco: No; Hx Alcohol Use: No Hx Substance Use: No Preferred Language: Icelandic Communication Ability: Effective Awning Maker And Installer Required: No Beliefs That Will Affect Care: Syn[employer] Current Living Situation: Long Term Current Living Situation Comment: Patient lives with daughter and son in law. Feels Safe at Home: Yes Assistive Devices: Mechanical Lift, Walker and Other Review of Systems Review of Systems: Unobtainable due to cognitive status Physical Exam Physical Exam: Bitemp wasting, lethargic PERRLA, unable to,track eye movements Neck without stridor Chest clear but diminished CV s1s2 Abd soft, no grimacing with palpation +gen weakness intermittent lethargy vs ?hypoactive delirium, does not engage in discussion, unable to follow command skin pale, diaphoretic Results & Data Vital Signs (Past 12 Hours) Vital Signs Temp Pulse Resp BP Pulse Ox O2 Del Method O2 Del Method 04/17/25 10:20 Room Air 04/17/25 08:00 Room Air 04/17/25 08:00 36.5 C 55 L 21 148/58 H 98 Room Air 04/17/25 02:53 36.7 C 75 20 147/65 H 98 Room Air 04/16/25 22:55 36.5 C 51 L 20 116/71 98 Room Air Laboratory Results 04/17/25 04/16/25 04/15/25 Range/Units 04:23 05:27 06:17 WBC 13.54 H 9.97 9.11 (4.8-10.8) K/ul RBC 4.02 L 3.77 L 3.60 L (4.20-5.40) M/uL Hgb 12.6 11.8 L 11.1 L (12.0-16.0) g/dL Hct 37.4 34.8 L 33.6 L (37.0-47.0) % MCV 93.0 92.3 93.3 (80.0-100.0) fL MCH 31.3 31.3 30.8 (25.0-34.0) pg MCHC 33.7 33.9 33.0 (32.0-36.0) g/dL RDW Std Deviation 43.8 43.3 44.8 (36.4-46.3) fL RDW Coeff of Cheryl 12.9 12.8 12.9 (11.5-14.5) % Plt Count 179 138 119 L (130-400) K/uL MPV 10.9 11.5 11.1 (9.4-12.4) fL Immature Gran % (Auto) % Neut % (Auto) % Lymph % (Auto) % [place] % (Auto) % Eos % (Auto) % Baso % (Auto) % Neut # (Auto) (1.40-6.50) K/uL Lymph # (Auto) (1.20-3.40) K/uL [place] # (Auto) (0.11-0.59) K/uL Eos # (Auto) (0.00-0.50) K/uL Baso # (Auto) (0.00-0.20) K/uL Immature Gran # (Auto) (0.01-0.20) K/uL Heparin Anti-Xa, Unfract (0.3-0.7) IU/ml Sodium 141 143 141 (136-145) mmol/L Potassium 3.3 L 3.7 3.7 (3.5-5.1) mmol/L Chloride 112 H 115 H 115 H (98-107) mmol/L Carbon Dioxide 25 22 19 L (21-32) mmol/L Anion Gap 4 6 7 (3-11) BUN 23 24 H 25 H (6-23) mg/dl Creatinine 0.49 L 0.38 L 0.41 L (0.6-1.2) mg/dl Est Cr Clr Drug Dosing 68.3 88.0 81.2 eGFR 90.60 96.32 94.57 BUN/Creatinine Ratio 46.9 H 63.2 H 61.0 H (10-20) Glucose 109 H 181 H 177 H (70-99(Fasting)) mg/dl Lactate (0.4-2.0) mmol/L Calcium 8.0 L 8.0 L 7.7 L (8.6-10.3) mg/dl Phosphorus 2.3 L 1.8 L 1.5 L* D (2.5-4.9) mg/dl Magnesium 1.8 1.9 1.8 (1.7-2.4) mg/dl Total Bilirubin (0.2-1.0) mg/dl AST (13-39) U/L ALT (7-52) U/L Alkaline Phosphatase (34-104) U/L Troponin I High Sens (0-14) pg/ml Total Protein (6.0-8.3) gm/dl Albumin (3.4-5.0) gm/dl Globulin (2.5-4.0) gm/dl Albumin/Globulin Ratio (0.9-2) Lipase (11-82) U/L Urine Color Urine Appearance (Clear) Urine pH (4.5-7.5) Ur Specific [place] (1.000-1.030) Urine Protein (Negative) Urine Glucose (UA) (Negative) Urine Ketones (Negative) Urine Blood (Negative) Urine Nitrite (Negative) Urine Bilirubin (Negative) Urine Urobilinogen (Negative) Ur Leukocyte Esterase (Negative) Urine WBC (Auto) (0-5) /hpf Urine RBC (Auto) (0-2) /hpf U Hyaline Cast (Auto) (0-2) /lpf U Epithel Cells (Auto) (0-2) /hpf Urine Bacteria (Auto) (None Seen) Hyaline Casts (None Presnt) /lpf Urine Mucus (None Prsent) Urine Comment Nasal Screen MRSA (PCR) (Negative) SARS-CoV-2 (PCR) (Negative) Enterobacterales (PCR) (NotDetected) E. coli (PCR) (NotDetected) Influenza Type A (PCR) (Neg) Influenza Type B (PCR) (Neg) RSV (RT-PCR) (Neg) mcr-1 Colistin Res Gene PCR (NotDetected) blaIMP Car res Gene PCR (NotDetected) KPC-Carbap Res Gene PCR (NotDetected) blaNDM Car Res Gene PCR (NotDetected) OXA-48 Carbapenem Resis Gene (PCR) (NotDetected) blaVIM Car Res Gene PCR (NotDetected) CTX-M Gene Resistance (PCR) (NotDetected) Bld Cult ID Panel PCR (NotDetected) 04/14/25 04/14/25 04/13/25 Range/Units 07:34 06:03 20:50 WBC 11.52 H (4.8-10.8) K/ul RBC 3.70 L (4.20-5.40) M/uL Hgb 11.5 L (12.0-16.0) g/dL Hct 34.4 L (37.0-47.0) % MCV 93.0 (80.0-100.0) fL MCH 31.1 (25.0-34.0) pg MCHC 33.4 (32.0-36.0) g/dL RDW Std Deviation 43.7 (36.4-46.3) fL RDW Coeff of Cheryl 13.0 (11.5-14.5) % Plt Count 103 L (130-400) K/uL MPV 11.4 (9.4-12.4) fL Immature Gran % (Auto) % Neut % (Auto) % Lymph % (Auto) % [place] % (Auto) % Eos % (Auto) % Baso % (Auto) % Neut # (Auto) (1.40-6.50) K/uL Lymph # (Auto) (1.20-3.40) K/uL [place] # (Auto) (0.11-0.59) K/uL Eos # (Auto) (0.00-0.50) K/uL Baso # (Auto) (0.00-0.20) K/uL Immature Gran # (Auto) (0.01-0.20) K/uL Heparin Anti-Xa, Unfract 0.33 0.38 (0.3-0.7) IU/ml Sodium 141 (136-145) mmol/L Potassium 3.7 TNP (3.5-5.1) mmol/L Chloride 113 H (98-107) mmol/L Carbon Dioxide 22 (21-32) mmol/L Anion Gap 6 (3-11) BUN 23 (6-23) mg/dl Creatinine 0.48 L (0.6-1.2) mg/dl Est Cr Clr Drug Dosing 64.1 eGFR 91.05 BUN/Creatinine Ratio 47.9 H (10-20) Glucose 190 H (70-99(Fasting)) mg/dl Lactate (0.4-2.0) mmol/L Calcium 7.7 L (8.6-10.3) mg/dl Phosphorus 2.5 (2.5-4.9) mg/dl Magnesium 1.9 (1.7-2.4) mg/dl Total Bilirubin (0.2-1.0) mg/dl AST (13-39) U/L ALT (7-52) U/L Alkaline Phosphatase (34-104) U/L Troponin I High Sens (0-14) pg/ml Total Protein (6.0-8.3) gm/dl Albumin (3.4-5.0) gm/dl Globulin (2.5-4.0) gm/dl Albumin/Globulin Ratio (0.9-2) Lipase (11-82) U/L Urine Color Urine Appearance (Clear) Urine pH (4.5-7.5) Ur Specific [place] (1.000-1.030) Urine Protein (Negative) Urine Glucose (UA) (Negative) Urine Ketones (Negative) Urine Blood (Negative) Urine Nitrite (Negative) Urine Bilirubin (Negative) Urine Urobilinogen (Negative) Ur Leukocyte Esterase (Negative) Urine WBC (Auto) (0-5) /hpf Urine RBC (Auto) (0-2) /hpf U Hyaline Cast (Auto) (0-2) /lpf U Epithel Cells (Auto) (0-2) /hpf Urine Bacteria (Auto) (None Seen) Hyaline Casts (None Presnt) /lpf Urine Mucus (None Prsent) Urine Comment Nasal Screen MRSA (PCR) (Negative) SARS-CoV-2 (PCR) (Negative) Enterobacterales (PCR) (NotDetected) E. coli (PCR) (NotDetected) Influenza Type A (PCR) (Neg) Influenza Type B (PCR) (Neg) RSV (RT-PCR) (Neg) mcr-1 Colistin Res Gene PCR (NotDetected) blaIMP Car res Gene PCR (NotDetected) KPC-Carbap Res Gene PCR (NotDetected) blaNDM Car Res Gene PCR (NotDetected) OXA-48 Carbapenem Resis Gene (PCR) (NotDetected) blaVIM Car Res Gene PCR (NotDetected) CTX-M Gene Resistance (PCR) (NotDetected) Bld Cult ID Panel PCR (NotDetected) 04/13/25 04/13/25 04/13/25 Range/Units 17:25 11:02 11:00 WBC (4.8-10.8) K/ul RBC (4.20-5.40) M/uL Hgb (12.0-16.0) g/dL Hct (37.0-47.0) % MCV (80.0-100.0) fL MCH (25.0-34.0) pg MCHC (32.0-36.0) g/dL RDW Std Deviation (36.4-46.3) fL RDW Coeff of Cheryl (11.5-14.5) % Plt Count (130-400) K/uL MPV (9.4-12.4) fL Immature Gran % (Auto) % Neut % (Auto) % Lymph % (Auto) % [place] % (Auto) % Eos % (Auto) % Baso % (Auto) % Neut # (Auto) (1.40-6.50) K/uL Lymph # (Auto) (1.20-3.40) K/uL [place] # (Auto) (0.11-0.59) K/uL Eos # (Auto) (0.00-0.50) K/uL Baso # (Auto) (0.00-0.20) K/uL Immature Gran # (Auto) (0.01-0.20) K/uL Heparin Anti-Xa, Unfract Cancelled 0.29 L (0.3-0.7) IU/ml Sodium (136-145) mmol/L Potassium (3.5-5.1) mmol/L Chloride (98-107) mmol/L Carbon Dioxide (21-32) mmol/L Anion Gap (3-11) BUN (6-23) mg/dl Creatinine (0.6-1.2) mg/dl Est Cr Clr Drug Dosing eGFR BUN/Creatinine Ratio (10-20) Glucose (70-99(Fasting)) mg/dl Lactate (0.4-2.0) mmol/L Calcium (8.6-10.3) mg/dl Phosphorus (2.5-4.9) mg/dl Magnesium (1.7-2.4) mg/dl Total Bilirubin (0.2-1.0) mg/dl AST (13-39) U/L ALT (7-52) U/L Alkaline Phosphatase (34-104) U/L Troponin I High Sens 126.8 H* D 163.9 H* D (0-14) pg/ml Total Protein (6.0-8.3) gm/dl Albumin (3.4-5.0) gm/dl Globulin (2.5-4.0) gm/dl Albumin/Globulin Ratio (0.9-2) Lipase (11-82) U/L Urine Color Urine Appearance (Clear) Urine pH (4.5-7.5) Ur Specific [place] (1.000-1.030) Urine Protein (Negative) Urine Glucose (UA) (Negative) Urine Ketones (Negative) Urine Blood (Negative) Urine Nitrite (Negative) Urine Bilirubin (Negative) Urine Urobilinogen (Negative) Ur Leukocyte Esterase (Negative) Urine WBC (Auto) (0-5) /hpf Urine RBC (Auto) (0-2) /hpf U Hyaline Cast (Auto) (0-2) /lpf U Epithel Cells (Auto) (0-2) /hpf Urine Bacteria (Auto) (None Seen) Hyaline Casts (None Presnt) /lpf Urine Mucus (None Prsent) Urine Comment Nasal Screen MRSA (PCR) Negative (Negative) SARS-CoV-2 (PCR) (Negative) Enterobacterales (PCR) (NotDetected) E. coli (PCR) (NotDetected) Influenza Type A (PCR) (Neg) Influenza Type B (PCR) (Neg) RSV (RT-PCR) (Neg) mcr-1 Colistin Res Gene PCR (NotDetected) blaIMP Car res Gene PCR (NotDetected) KPC-Carbap Res Gene PCR (NotDetected) blaNDM Car Res Gene PCR (NotDetected) OXA-48 Carbapenem Resis Gene (PCR) (NotDetected) blaVIM Car Res Gene PCR (NotDetected) CTX-M Gene Resistance (PCR) (NotDetected) Bld Cult ID Panel PCR (NotDetected) 04/13/25 04/12/25 04/12/25 Range/Units 05:08 Unknown 22:28 WBC 14.17 H (4.8-10.8) K/ul RBC 3.84 L (4.20-5.40) M/uL Hgb 11.8 L (12.0-16.0) g/dL Hct 35.9 L (37.0-47.0) % MCV 93.5 (80.0-100.0) fL MCH 30.7 (25.0-34.0) pg MCHC 32.9 (32.0-36.0) g/dL RDW Std Deviation 45.7 (36.4-46.3) fL RDW Coeff of Cheryl 13.3 (11.5-14.5) % Plt Count 142 (130-400) K/uL MPV 10.5 (9.4-12.4) fL Immature Gran % (Auto) 0.7 % Neut % (Auto) 91.9 % Lymph % (Auto) 3.1 % [place] % (Auto) 4.0 % Eos % (Auto) 0.0 % Baso % (Auto) 0.3 % Neut # (Auto) 13.03 H (1.40-6.50) K/uL Lymph # (Auto) 0.44 L (1.20-3.40) K/uL [place] # (Auto) 0.56 (0.11-0.59) K/uL Eos # (Auto) 0.00 (0.00-0.50) K/uL Baso # (Auto) 0.04 (0.00-0.20) K/uL Immature Gran # (Auto) 0.10 (0.01-0.20) K/uL Heparin Anti-Xa, Unfract (0.3-0.7) IU/ml Sodium 138 (136-145) mmol/L Potassium 4.5 D (3.5-5.1) mmol/L Chloride 108 H (98-107) mmol/L Carbon Dioxide 23 (21-32) mmol/L Anion Gap 7 (3-11) BUN 20 (6-23) mg/dl Creatinine 0.58 L (0.6-1.2) mg/dl Est Cr Clr Drug Dosing 57.4 eGFR 86.99 BUN/Creatinine Ratio 34.5 H (10-20) Glucose 174 H (70-99(Fasting)) mg/dl Lactate 1.3 (0.4-2.0) mmol/L Calcium 8.0 L (8.6-10.3) mg/dl Phosphorus 3.4 (2.5-4.9) mg/dl Magnesium 1.8 (1.7-2.4) mg/dl Total Bilirubin (0.2-1.0) mg/dl AST (13-39) U/L ALT (7-52) U/L Alkaline Phosphatase (34-104) U/L Troponin I High Sens 287.1 H* D 526.0 H* D (0-14) pg/ml Total Protein (6.0-8.3) gm/dl Albumin (3.4-5.0) gm/dl Globulin (2.5-4.0) gm/dl Albumin/Globulin Ratio (0.9-2) Lipase (11-82) U/L Urine Color Urine Appearance (Clear) Urine pH (4.5-7.5) Ur Specific [place] (1.000-1.030) Urine Protein (Negative) Urine Glucose (UA) (Negative) Urine Ketones (Negative) Urine Blood (Negative) Urine Nitrite (Negative) Urine Bilirubin (Negative) Urine Urobilinogen (Negative) Ur Leukocyte Esterase (Negative) Urine WBC (Auto) (0-5) /hpf Urine RBC (Auto) (0-2) /hpf U Hyaline Cast (Auto) (0-2) /lpf U Epithel Cells (Auto) (0-2) /hpf Urine Bacteria (Auto) (None Seen) Hyaline Casts (None Presnt) /lpf Urine Mucus (None Prsent) Urine Comment Nasal Screen MRSA (PCR) (Negative) SARS-CoV-2 (PCR) NEGATIVE (Negative) Enterobacterales (PCR) (NotDetected) E. coli (PCR) (NotDetected) Influenza Type A (PCR) Negative (Neg) Influenza Type B (PCR) Negative (Neg) RSV (RT-PCR) Negative (Neg) mcr-1 Colistin Res Gene PCR (NotDetected) blaIMP Car res Gene PCR (NotDetected) KPC-Carbap Res Gene PCR (NotDetected) blaNDM Car Res Gene PCR (NotDetected) OXA-48 Carbapenem Resis Gene (PCR) (NotDetected) blaVIM Car Res Gene PCR (NotDetected) CTX-M Gene Resistance (PCR) (NotDetected) Bld Cult ID Panel PCR (NotDetected) 04/12/25 04/12/25 Range/Units 20:38 20:26 WBC 18.48 H (4.8-10.8) K/ul RBC 4.55 (4.20-5.40) M/uL Hgb 14.2 (12.0-16.0) g/dL Hct 42.3 (37.0-47.0) % MCV 93.0 (80.0-100.0) fL MCH 31.2 (25.0-34.0) pg MCHC 33.6 (32.0-36.0) g/dL RDW Std Deviation 46.0 (36.4-46.3) fL RDW Coeff of Cheryl 13.3 (11.5-14.5) % Plt Count 169 (130-400) K/uL MPV 10.3 (9.4-12.4) fL Immature Gran % (Auto) 0.9 % Neut % (Auto) 89.6 % Lymph % (Auto) 2.5 % [place] % (Auto) 6.7 % Eos % (Auto) 0.0 % Baso % (Auto) 0.3 % Neut # (Auto) 16.56 H (1.40-6.50) K/uL Lymph # (Auto) 0.47 L (1.20-3.40) K/uL [place] # (Auto) 1.23 H (0.11-0.59) K/uL Eos # (Auto) 0.00 (0.00-0.50) K/uL Baso # (Auto) 0.05 (0.00-0.20) K/uL Immature Gran # (Auto) 0.17 (0.01-0.20) K/uL Heparin Anti-Xa, Unfract (0.3-0.7) IU/ml Sodium 139 (136-145) mmol/L Potassium 3.0 L (3.5-5.1) mmol/L Chloride 104 (98-107) mmol/L Carbon Dioxide 25 (21-32) mmol/L Anion Gap 10 (3-11) BUN 18 (6-23) mg/dl Creatinine 0.69 (0.6-1.2) mg/dl Est Cr Clr Drug Dosing Not Reportable eGFR 83.42 BUN/Creatinine Ratio 26.1 H (10-20) Glucose 159 H (70-99(Fasting)) mg/dl Lactate 2.2 H* (0.4-2.0) mmol/L Calcium 9.0 (8.6-10.3) mg/dl Phosphorus (2.5-4.9) mg/dl Magnesium (1.7-2.4) mg/dl Total Bilirubin 0.8 (0.2-1.0) mg/dl AST 21 (13-39) U/L ALT 22 (7-52) U/L Alkaline Phosphatase 99 (34-104) U/L Troponin I High Sens 344.4 H* (0-14) pg/ml Total Protein 6.7 (6.0-8.3) gm/dl Albumin 3.5 (3.4-5.0) gm/dl Globulin 3.2 (2.5-4.0) gm/dl Albumin/Globulin Ratio 1.1 (0.9-2) Lipase 4 L (11-82) U/L Urine Color Yellow Urine Appearance Cloudy A (Clear) Urine pH 6.0 (4.5-7.5) Ur Specific [place] 1.008 (1.000-1.030) Urine Protein 1+ H (Negative) Urine Glucose (UA) Negative (Negative) Urine Ketones Negative (Negative) Urine Blood 2+ H (Negative) Urine Nitrite Negative (Negative) Urine Bilirubin Negative (Negative) Urine Urobilinogen Negative (Negative) Ur Leukocyte Esterase 3+ H (Negative) Urine WBC (Auto) >50 H (0-5) /hpf Urine RBC (Auto) 6-10 H (0-2) /hpf U Hyaline Cast (Auto) >20 H (0-2) /lpf U Epithel Cells (Auto) 0-2 (0-2) /hpf Urine Bacteria (Auto) 4+ H (None Seen) Hyaline Casts Present A (None Presnt) /lpf Urine Mucus Present A (None Prsent) Urine Comment Nasal Screen MRSA (PCR) (Negative) SARS-CoV-2 (PCR) (Negative) Enterobacterales (PCR) DETECTED A (NotDetected) E. coli (PCR) DETECTED A (NotDetected) Influenza Type A (PCR) (Neg) Influenza Type B (PCR) (Neg) RSV (RT-PCR) (Neg) mcr-1 Colistin Res Gene PCR Not Detected (NotDetected) blaIMP Car res Gene PCR Not Detected (NotDetected) KPC-Carbap Res Gene PCR Not Detected (NotDetected) blaNDM Car Res Gene PCR Not Detected (NotDetected) OXA-48 Carbapenem Resis Gene (PCR) Not Detected (NotDetected) blaVIM Car Res Gene PCR Not Detected (NotDetected) CTX-M Gene Resistance (PCR) DETECTED A* (NotDetected) Bld Cult ID Panel PCR See PCR Comment (NotDetected) Diagnostic Findings Chest X-Ray 04/12/25 20:07 Exam(s): XR CXR 1 VIEW EXAM: XR Chest, 1 View CLINICAL HISTORY: Reason for exam: Chest pain, nonspecific. TECHNIQUE: Frontal view of the chest. COMPARISON: 10/09/2022 FINDINGS: Lungs: Unremarkable. No consolidation. Pleural space: Unremarkable. No pneumothorax. Heart: Unremarkable. No cardiomegaly. Mediastinum: Unremarkable. Normal mediastinal contour. Bones/joints: Mild osteophytosis throughout the mid to lower thoracic spine. Osteophytosis involving the right shoulder. No acute fracture. Vasculature: The thoracic aorta is mildly calcified but appears nondilated. Tubes, lines and devices: The cardiac silhouette is mildly enlarged. There is a loop recorder projecting over the heart. Upper abdomen: Unremarkable as visualized. No pneumoperitoneum. IMPRESSION: 1. The cardiac silhouette is mildly enlarged. There is a loop recorder projecting over the heart. 2. The thoracic aorta is mildly calcified but appears nondilated. Electronically signed by: Destin Ruiz MD 04/12/25 21:56 PM Abdomen/Pelvis CT 04/12/25 20:16 Exam(s): CT ABDOMEN + PELVIS Without Contrast EXAM: CT Abdomen and Pelvis Without Intravenous Contrast CLINICAL HISTORY: Reason for exam: pain, N/V. TECHNIQUE: Axial computed tomography images of the abdomen and pelvis without intravenous contrast. CTDI is 15.78 mGy and DLP is 769.96 mGy-cm. Automated exposure control was utilized for the study. A dose lowering technique was utilized adhering to the principles of ALARA. COMPARISON: No relevant prior studies available. FINDINGS: Lung bases: 3.5 cm patchy infiltrate and partial consolidation of the right lower lobe suspicious for pneumonia. ABDOMEN: Liver: Unremarkable. Gallbladder and bile ducts: Mild biliary duct prominence post cholecystectomy. No choledocholithiasis is seen. Pancreas: Unremarkable. No ductal dilation. Spleen: Unremarkable. No splenomegaly. Adrenals: Unremarkable. No mass. Kidneys and ureters: Nonobstructive 4 mm calculus in the right kidney. No hydronephrosis or ureterolithiasis is seen involving either kidney. Stomach and bowel: 7.1 cm of stool in the rectum suggesting constipation. No other dilated bowel loops are identified. There is diverticulosis of the sigmoid colon without evidence of acute diverticulitis. The right and transverse colon are contracted which gives the appearance of mild wall thickening. No definite surrounding inflammation but mild colitis can not be excluded. PELVIS: Appendix: No findings to suggest acute appendicitis. Bladder: There is a Yoo catheter decompressing the urinary bladder. No stones. Reproductive: Unremarkable as visualized. ABDOMEN and PELVIS: Intraperitoneal space: Unremarkable. No free air. No significant fluid collection. Bones/joints: Mild degenerative changes throughout the lumbar spine with previous instrumentation and fusion at L5-S1. 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 No dislocation. Soft tissues: Unremarkable. Vasculature: The abdominal aorta is severely calcified but nondilated. This is a noncontrast study. Lymph nodes: Unremarkable. No enlarged lymph nodes. Tubes, lines and devices: There is a percutaneous gastrostomy tube in standard position. IMPRESSION: 1. 3.5 cm patchy infiltrate and partial consolidation of the right lower lobe suspicious for pneumonia. 2. 7.1 cm of stool in the rectum suggesting constipation. No other dilated bowel loops are identified. There is diverticulosis of the sigmoid colon without evidence of acute diverticulitis. The right and transverse colon are contracted which gives the appearance of mild wall thickening. No definite surrounding inflammation but mild colitis can not be excluded. 3. 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 4. Nonobstructive 4 mm calculus in the right kidney. No hydronephrosis or ureterolithiasis is seen involving either kidney. Electronically signed by: Destin Ruiz MD 04/12/25 22:[address] 04/12/25 20:16 Exam(s): CT HEAD Without Contrast EXAM: CT Head Without Intravenous Contrast CLINICAL HISTORY: Reason for exam: AMS, fall. TECHNIQUE: Axial computed tomography images of the head/brain without intravenous contrast. CTDI is 37.78 mGy and DLP is 624.41 mGy-cm. Automated exposure control was utilized for the study. A dose lowering technique was utilized adhering to the principles of ALARA. COMPARISON: MRI brain from 10/09/2022 FINDINGS: Brain: There is a large area of encephalomalacia and surrounding gliosis measuring 12 cm AP x 3.5 cm transverse involving most of the right temporal lobe and portions of the frontal parietal lobes as well as the right insula consistent with old infarct, unchanged. Mild cerebral atrophy and periventricular white matter low density in the left consistent with chronic small vessel disease and/or senescent changes. No new infarct or hemorrhage identified. Ventricles: Mildly dilated. No mass or hemorrhage. Bones/joints: Unremarkable. No acute fracture. Soft tissues: Unremarkable. Sinuses: Unremarkable as visualized. No acute sinusitis. Mastoid air cells: Unremarkable as visualized. No mastoid effusion. IMPRESSION: 1. There is a large area of encephalomalacia and surrounding gliosis measuring 12 cm AP x 3.5 cm transverse involving most of the right temporal lobe and portions of the frontal parietal lobes as well as the right insula consistent with old infarct, unchanged. 2. Mild cerebral atrophy and periventricular white matter low density in the left consistent with chronic small vessel disease and/or senescent changes. No new infarct or hemorrhage identified. 3. No acute traumatic findings identified. Electronically signed by: Destin Ruiz MD 04/12/25 22:18 PM PG Care Time/CCT Total # of Minutes Spent Total Time Spent: 75 Total Time Spent with Patient: Total time spent is greater than 50% in coordination of care (as documented) at patient's floor/unit and/or counseling patient: [place] [address] INT INP/OBS CARE 2/55MIN Patient Type New Medical Decision Making High Complexity Diagnoses Weakness generalized R53.1 Altered mental status R41.82 Palliative care by specialist Z51.5
[2025-04-17] MEDS: POTASSIUM CHLORIDE 20 MEQ/15 ML UDC PEG STA (11:04)
[2025-04-17] MEDS: POTASSIUM PHOSPHATE 15 MMOL in DEXTROSE 5% 250 ML IV ONE (11:18)
--- NOTE | 2025-04-17 13:52 | Hospitalist Progress Note ---
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 Daughter in the room. Daughter was called today as patient had couple of vomiting last night. The [facility] sent urine sample. Daughter went in the afternoon and fed her. While daughter was feeding the patient was shaking which happened in the past when she had a UTI. And daughter got call again in the evening that the patient's symptoms progressed and getting more confused and was brought to the hospital. Patient opens eyes but not talking. As per the daughter last 2 days she has been confused but before that she was talking fine. No complaints of any pain. Seems normal bowel and bladder movements. Currently could not get any history from the patient. Sepsis Fever, leukocytosis, soft blood pressure, initial lactic acid 2.2 repeat is 1.3, UA is positive - on admission CT abdomen pelvis shows right lower lobe consolidation Sepsis most likely from UTI and pneumonia Received Vanco and cefepime in the ER. then zosyn on admission Ucultx, blood cultx positive for ESBL E.coli, pt was switched to ertapenem on (04/13) 04/16 Pt afebrile, WBC now normalized, mental status seems back to baseline Consulted ID - recommend 10 day course of Ertapenem 04/17 Today pt more drowsy again. Will cont. to closely monitor IV fluids IV hydrocortisone stress dose as patient is chronically on prednisone, IV hydrocortisone stopped as BP elevated Patient is DNR/DNI. admitting provider Confirmed with daughter Daughter says okay for pressors if needed Close monitoring hemodynamics in telemetry Metabolic encephalopathy Altered mental status Mostly from sepsis CT head shows old stroke Seems as mental status close to baseline as of yesterday. Today (04/17) more drowsy again. Cont. to closely monitor. Elevated troponin Initial troponin 344 and repeat 526 Type II demand ischemia in the setting of acute urosepsis. EKG okay Low-dose IV heparin for now - cont. for 24 hrs per cardiology - stopped now obtained serial cardiac enzymes and echo Cardiology was consulted History of right MCA CVA Left-sided hemiparesis Bedbound On pured diet and also on bolus tube feeds Has PEG tube All the p.o. medicines per PEG tubes Continue aspirin and statin History of seizures Continue home Keppra Nutrition Usually on pureed Diet and bolus tube feeds tube feeds resumed Daughter wishes for speech consult - ordered Depression anxiety Continue fluoxetine Hypertension Holding amlodipine for sepsis Hypothyroidism On Synthyroid GERD IV PPI for now DVT prophylaxis Admission and Anticipated Discharge Date Admission Date: April 13, 2025 Subjective Pt seen in follow up of UTI, sepsis, ESBL bacteremia She was switched to ertapenem currently afebrile, WBC down from 18K to 9K - normalized, now mildly elevated again. Pt has no oral intake besides tube feeds at this time. Speech was consulted. ? WBC from dehydration, will start IVF Yesterday AM pt was more awake, answered all the questions and answered appropriately. Followed commands. Today pt more drowsy. When I ask her how she is doing she answers "OK". But doesn't say much otherwise , does not answer other questions. Pt's daughter p resent at the bedside as well as nursing staff and discussed with. Review of Systems Review of Systems: Unobtainable due to cognitive status Physical Exam Physical Exam: General- WD/WN F in NAD, more drowsy today Head- atraumatic Eyes- PERRL. Neck- supple, no JVD. Lungs- decreased breath sounds Heart- regular rhythm; no murmur Abdomen- normal bowel sounds, soft, nontender, no distension, PEG tube site ok Extremities- no pretibial edema, no erythema seen Neuro- more drowsy today, only answers some questions Results & Data Results & Data Vital Signs (Past 12 Hours) Vital Signs Temp Pulse Resp BP Pulse Ox O2 Del Method O2 Del Method 04/17/25 11:28 36.4 C L 63 24 145/75 H 99 Room Air 04/17/25 10:20 Room Air 04/17/25 08:00 Room Air 04/17/25 08:00 36.5 C 55 L 21 148/58 H 98 Room Air 04/17/25 02:53 36.7 C 75 20 147/65 H 98 Room Air Laboratory Results 04/17/25 Range/Units 04:23 WBC 13.54 H (4.8-10.8) K/ul RBC 4.02 L (4.20-5.40) M/uL Hgb 12.6 (12.0-16.0) g/dL Hct 37.4 (37.0-47.0) % MCV 93.0 (80.0-100.0) fL MCH 31.3 (25.0-34.0) pg MCHC 33.7 (32.0-36.0) g/dL RDW Std Deviation 43.8 (36.4-46.3) fL RDW Coeff of Cheryl 12.9 (11.5-14.5) % Plt Count 179 (130-400) K/uL MPV 10.9 (9.4-12.4) fL Sodium 141 (136-145) mmol/L Potassium 3.3 L (3.5-5.1) mmol/L Chloride 112 H (98-107) mmol/L Carbon Dioxide 25 (21-32) mmol/L Anion Gap 4 (3-11) BUN 23 (6-23) mg/dl Creatinine 0.49 L (0.6-1.2) mg/dl Est Cr Clr Drug Dosing 68.3 ml/min eGFR 90.60 BUN/Creatinine Ratio 46.9 H (10-20) Glucose 109 H (70-99(Fasting)) mg/dl Calcium 8.0 L (8.6-10.3) mg/dl Phosphorus 2.3 L (2.5-4.9) mg/dl Magnesium 1.8 (1.7-2.4) mg/dl Medications Administered Current Inpatient Medications Amlodipine Besylate (Amlodipine Besylate 5 Mg Tab) 2.5 mg PEG QAM [facility] Stop: 05/16/25 08:59 Last Admin: 04/17/25 09:01 Dose: 2.5 mg Aspirin (Aspirin 81 Mg Chew) 81 mg PEG QAM [facility] Stop: 05/16/25 08:59 Last Admin: 04/17/25 09:00 Dose: 81 mg Atorvastatin Calcium (Atorvastatin 40 Mg Tab) 40 mg PEG HS [facility] Stop: 05/13/25 20:59 Last Admin: 04/16/25 20:07 Dose: 40 mg Diclofenac Sodium (Diclofenac Sod 1% Gel 100 Gm Tube) 2 gm EXT BID [facility]; Protocol Stop: 05/16/25 11:29 Last Admin: 04/17/25 09:02 Dose: 2 gm Enteral Nutritional Formula (Fibersource Hn 1.2 Hakeem 1000 Ml Bag) 1,000 ml GT .See Protocol [facility]; Protocol Stop: 05/13/25 16:14 Last Admin: 04/17/25 13:13 Dose: 1,000 ml Fluoxetine HCl (Fluoxetine Hcl 10 Mg Cap) 10 mg PO QAM [facility] Stop: 05/13/25 08:59 Last Admin: 04/17/25 09:03 Dose: 10 mg Pantoprazole Sodium (Protonix) 40 mg in 10 mls @ 5 mls/min IV DAILY [facility] Stop: 05/13/25 08:59 Last Admin: 04/17/25 09:04 Dose: 5 mls/min Ertapenem (Invanz 1000mg) 1,000 mg in 10 mls @ 2 mls/min IV Q24H [facility] Stop: 04/27/25 17:59 Last Admin: 04/16/25 17:29 Dose: 2 mls/min Hydrocortisone Sodium (Succinate 100 mg/ Syringe) 2 mls @ 4 mls/min IV Q12H [facility] Stop: 05/15/25 19:59 Last Admin: 04/15/25 21:02 Dose: 4 mls/min Acetaminophen (Ofirmev) 1,000 mg in 100 mls @ 400 mls/hr IV Q8H PRN PRN Reason: Pain or Fever Stop: 04/19/25 14:04 Last Admin: 04/17/25 13:12 Dose: 400 mls/hr Sodium Chloride (Nss) 1,000 mls @ 150 mls/hr IV .[id number] ONE Stop: 04/17/25 20:21 Magnesium Sulfate/Dextrose (Magnesium Sulfate / D5w) 1 gm in 100 mls @ 50 mls/hr IV ONE ONE Stop: 04/17/25 15:42 Levetiracetam (Levetiracetam Oral Soln 100mg/Ml) 500 mg PEG BID [facility] Stop: 05/13/25 08:59 Last Admin: 04/17/25 09:00 Dose: 500 mg Levothyroxine Sodium (Levothyroxine Sodium 75 Mcg Tablet) 75 mcg PEG DAILYBB [facility] Stop: 05/13/25 06:29 Last Admin: 04/17/25 06:35 Dose: 75 mcg Nitroglycerin (Nitroglycerin Sl 0.4 Mg/Tab Tab) 0.4 mg SL Q5M PRN PRN Reason: Chest Pain Stop: 05/13/25 04:06 Ondansetron HCl (Ondansetron Inj 2 Mg/Ml 2 Ml Vial) 4 mg IV Q6H PRN PRN Reason: Nausea Stop: 05/13/25 04:06 Sodium Chloride (Sodium Chloride 1 Gm Tablet) 1 gm PO QAM [facility] Stop: 05/13/25 08:59 Last Admin: 04/17/25 09:03 Dose: 1 gm Sterile Water (Tube Feeding Water Flush) 125 ml PEG Q4H [facility] Stop: 05/13/25 16:14 Last Admin: 04/17/25 11:19 Dose: 125 ml
[2025-04-17] MEDS: MAGNESIUM SULFATE / D5W 1 GM/100 ML BAG IV ONE (14:39)
[2025-04-17] MEDS: SODIUM CHLORIDE 0.9% 1,000 ML IV ONE (14:39)
[2025-04-18 06:09] LABS: Hematocrit (blood only) 36.2 % (37.0-47.0); Hemoglobin 12.3 g/dL (12.0-16.0); Mean Corpuscular Hemoglobin 31.5 pg (25.0-34.0); Mean Corpuscular Volume 92.6 fL (80.0-100.0); Platelet Count 178 K/uL (130-400); RDW Standard Deviation 44.9 fL (36.4-46.3); Red Blood Count 3.91 M/uL (4.20-5.40); White Blood Count 17.24 K/ul (4.8-10.8)
[2025-04-18 06:21] LABS: Anion Gap 5.0 (3-11); Calcium 8.0 mg/dl (8.6-10.3); Carbon Dioxide 26.0 mmol/L (21-32); Chloride 110.0 mmol/L (98-107); Magnesium 2.1 mg/dl (1.7-2.4); Potassium 4.5 mmol/L (3.5-5.1); Sodium 141.0 mmol/L (136-145)
[2025-04-18 06:29] LABS: Blood Urea Nitrogen 22.0 mg/dl (6-23); Creatinine Clr Calc Pharmacy 68.8 ml/min; Glucose 121.0 mg/dl (70-99(Fasting))
[2025-04-18 07:59] VITALS: BP 166/89; RESP 24; TEMP 98.1; O2SAT 98
[2025-04-18] MEDS: ENOXAPARIN INJ 40 MG/0.4 ML SYR SQ SCH (08:39)
[2025-04-18 11:09] VITALS: PULSE 59
--- NOTE | 2025-04-18 12:22 | XRay Report ---
EXAM: Radiograph of the Chest 1 View INDICATION: Infiltrate. TECHNIQUE: Frontal view of the chest. COMPARISON: 04/12/2025 FINDINGS: Lungs and pleural spaces: There is now consolidation in the left lung base with obscured left diaphragm. Trace left pleural effusion not excluded. Shallow inspiration with crowded vasculature. No definite pulmonary edema. No pneumothorax. Heart: Stable enlargement and loop recorder. Mediastinum: Normal contour. Bones/joints: No fracture, erosion or dislocation. Soft tissues: No abnormality noted. No radiopaque foreign body noted. Upper abdomen: No abnormality noted. IMPRESSION: Left basilar atelectasis or pneumonia and probable trace left pleural effusion. ACT 112: N/A Electronically signed by Saloni Kaye 04-18-2025 12:22 PM
[2025-04-18] MEDS ORDERED: GLYCOPYRROLATE 0.2 MG/ML VIAL IV PRN (13:00)
[2025-04-18] MEDS ORDERED: ONDANSETRON 4 MG OD TAB SL PRN (13:00)
[2025-04-18] MEDS ORDERED: ATROPINE SULFATE 1% OP SOLN 5 ML BTL SL PRN (13:00)
[2025-04-18] MEDS ORDERED: HALOPERIDOL ORAL SOLN 2 MG/ML PO PRN (13:00)
[2025-04-18] MEDS ORDERED: HYOSCYAMINE SULFATE 0.125 MG TAB SL PRN (13:00)
[2025-04-18] MEDS ORDERED: ONDANSETRON INJ 2 MG/ML 2 ML VIAL IV PRN (13:00)
[2025-04-18] MEDS ORDERED: LORazepam Inj 0.5 MG in SYRINGE 0.25 ML IV PRN (13:00)
--- NOTE | 2025-04-18 13:18 | Palliative Care Progress Note ---
Date of Service April 18, 2025 Assessment & Plan (1) Altered mental status: (2) Palliative care by specialist: Plan: Met with pt's daughter Gavi Alegria in conference room. Introduced Palliative Medicine and explained our role in advanced care planning, symptom management and navigation through the progression of life limiting disease. Patient and/or family were receptive to palliative services for goals of care discussions. Reviewed we are different from hospice, a home health nurse visiting service. (3) Counseling regarding goals of care: Plan: Met with Gavi from 12:15 - 12:48 to discuss goals of care. We discussed at length the patient's acute and chronic medical conditions, general prognosis, treatment options, and goals of care. Gavi described Ines as a very independent natured woman who enjoys being social and meeting people. She shared concern that Ines has been so lethargic and not herself for several days. She shared concern that her mother is "heading towards the end" and that she has had very poor quality of life since her stroke. SHe shared that even when she was more alert and able to participate in social activities, she complained that she did not want to live a life dependent on others. Gaiv shared that the pt's brother on Akbar Ivory a few years ago and she would take comfort in knowing that Ines had joined him. She asked what steps they could take to no longer prolong Ines's suffering. Discussed hospice benefit: an interdisciplinary program offered by nurses, nurses aides, social workers, chaplains and a medical assistant supervisor for patients with a terminal condition and a life expectancy of less than 6 months. This is covered by Medicare at 100%/no out of pocket expense to patient and all meds/supplies needed by patient for the reason they are on hospice are paid for/covered by hospice. The goal is assure quality of life of the patient in their home setting (home, senior care, inpatient hospice setting) by providing symptoms management, psychosocial and spiritual support. Hospice care focuses on quality of life when a cure is no longer possible, or the burdens of treatment outweigh the benefits. Discussed that they will not receive curative treatments, but will receive medicine that enhances quality of life, such as treatment for high blood pressure, rapid heart rate, or anxiety. Hospice care includes pain and symptom management, emotional support, medications and medical supplies, coaching for caregivers, grief support, and may include special services like speech and physical therapy when needed. Hospice also provides a 24/7 call service by a team that focuses on the patients needs. The team usually includes clergy, home health aides, hospice physicians, nurses, social workers, trained volunteers, and other specialized therapists if needed. A patients personal physician may also be included. Although hospice provides a lot of support, if the patient lives at home, the day-to-day care is provided by the [facility] or paid home health aides. Gavi shared that she had been discussing with the rest of her family when it w ould be appropriate to transition to comfort based care and all are in agreement that Ines would not want her life prolonged given her decline in cognition and function over the past several weeks. She shared that Ines has not been living what she would consider an acceptable quality of life since her stroke. Gavi shared desire to stop all life prolonging therapies and transition to BIOSTATISTICS TEACHER today, she stated that she would not want to continue tube feeding but to allows for pleasure feeds and understands the risks involved. She is hopeful that Ines can remain in hospital until after Akbar, stating that she has "a gut feeling that she is going to today or tomorrow". Discussed that discharge planning will be dependent on [facility]'s ability to take her back on hospice. (4) Comfort measures only status: Plan: Jef requests transition to BIOSTATISTICS TEACHER today with plan for discharge back to [facility] with hosipce care. (5) Need for comfort care: Plan: Comfort plan of care parameters: 1. Patient/Family want hospice added to their care. 2. NO rehab/PT/OT 3. Strictly End of Life care only 4. NO escalation of care: do not increase oxygen, escalate therapies, etc. The focus is on comfort through end of life, assure this is accomplished with aggressive symptom management (i.e. relief of dyspnea, pain, etc.) 5. NO return to hospital 6. NO labs, imaging, surgery 7. Oral intake as desired for comfort and pleasure: NO dietary res triction, Allow permissive aspiration, do not withhold food or drink for concern of aspiration and allow PO for pleasure and comfort. 8. If difficulty urinating/commode/bedpan, ok to place Yoo catheter for comfort/hygiene/skin protection AND/OR Continue Yoo catheter for comfort/hygiene/skin protection 9. NO: calorie counts, artificial nutrition, feeding tubes or IV fluids EOL Symptom manamgement: Continue ABx/steroid taper per primary Pain/dyspnea/tachypnea morphine 2mg IVP PRN [id number] Consider titratable morphine drip if pt requires >3 PRN doses in under two consecutive hours. Nausea/vomitting zofran 4mg IVP q4h PRN Agitation ativan 0.5mg IVP q4h PRN Hyperactive delirium haldol 5mg IVP q6h PRN Secretions - if repositioning not effective robinul 0.4mg IV q4h PRN atropine SL 3 drops Q1h PRN Nursing care: Discontinue all medications not directed towards comfort. Detether pt from IV tubing, monitor cables, and check vitals once per shift. Please continue HFNC and titrate down as able for patient comfort. Use medications above PRN for dyspnea/tachypnea and do not increase oxygen once titrated down. Assess q1h for pain/dyspnea and treat accordingly. Plan BIOSTATISTICS TEACHER, pt has bed hold at [facility] for ongoing hospice care. Admission and Anticipated Discharge Date Admission Date: April 13, 2025 Subjective Assessed pt at bedside, she was lethargic but arousable and did not voice any complaint. VSS, NAD on room air. Daughter was at bedside. Review of Systems Review of Systems: All systems reviewed & are unremarkable except as noted in Subjective Physical Exam Constitutional: well developed, + ill appearing and + morbidly obese; no acute distress Neck: normal visual inspection and trachea midline Respiratory: normal respiratory effort; no respiratory distress, no labored breathing and no cough Auscultation: lungs clear to auscultation bilaterally and + diminished lung sounds (bilateral bases ) Cardiovascular: Heart Sounds: normal S1 and normal S2 Vessels: normal lavonne pheral pulses Extremities: + edema (RLE and RUE ) Gastrointestinal (Abdomen): normal bowel sounds, soft, nontender, no hepatosplenomegaly Skin: no rashes, warm and dry Psychiatric: Orientation: alert and oriented x 3 (non-verbal) Results & Data Vital Signs (Past 12 Hours) Vital Signs Temp Pulse Pulse Pulse Resp BP Pulse Ox 04/18/25 11:08 59 L 04/18/25 07:58 36.7 C 58 L 24 166/89 H 98 04/18/25 03:01 37.2 C 69 12 144/68 H 96 O2 Del Method 04/18/25 11:08 04/18/25 07:58 Room Air 04/18/25 03:01 Room Air Laboratory Results Abnormal lab results 04/17/25 04/18/25 Range/Units 21:37 05:29 WBC 17.24 H (4.8-10.8) K/ul RBC 3.91 L (4.20-5.40) M/uL Hct 36.2 L (37.0-47.0) % Chloride 110 H (98-107) mmol/L Creatinine 0.49 L (0.6-1.2) mg/dl BUN/Creatinine Ratio 44.9 H (10-20) Glucose 121 H (70-99(Fasting)) mg/dl POC Glucose 132 H (70-99) mg/dl Calcium 8.0 L (8.6-10.3) mg/dl Diagnostic Findings Abdomen/Pelvis CT 04/12/25 20:16 Exam(s): CT ABDOMEN + PELVIS Without Contrast EXAM: CT Abdomen and Pelvis Without Intravenous Contrast CLINICAL HISTORY: Reason for exam: pain, N/V. TECHNIQUE: Axial computed tomography images of the abdomen and pelvis without intravenous contrast. CTDI is 15.78 mGy and DLP is 769.96 mGy-cm. Automated exposure control was utilized for the study. A dose lowering technique was utilized adhering to the principles of ALARA. COMPARISON: No relevant prior studies available. FINDINGS: Lung bases: 3.5 cm patchy infiltrate and partial consolidation of the right lower lobe suspicious for pneumonia. ABDOMEN: Liver: Unremarkable. Gallbladder and bile ducts: Mild biliary duct prominence post cholecystectomy. No choledocholithiasis is seen. Pancreas: Unremarkable. No ductal dilation. Spleen: Unremarkable. No splenomegaly. Adrenals: Unremarkable. No mass. Kidneys and ureters: Nonobstructive 4 mm calculus in the right kidney. No hydronephrosis or ureterolithiasis is seen involving either kidney. Stomach and bowel: 7.1 cm of stool in the rectum suggesting constipation. No other dilated bowel loops are identified. There is diverticulosis of the sigmoid colon without evidence of acute diverticulitis. The right and transverse colon are contracted which gives the appearance of mild wall thickening. No definite surrounding inflammation but mild colitis can not be excluded. PELVIS: Appendix: No findings to suggest acute appendicitis. Bladder: There is a Yoo catheter decompressing the urinary bladder. No stones. Reproductive: Unremarkable as visualized. ABDOMEN and PELVIS: Intraperitoneal space: Unremarkable. No free air. No significant fluid collection. Bones/joints: Mild degenerative changes throughout the lumbar spine with previous instrumentation and fusion at L5-S1. 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 No dislocation. Soft tissues: Unremarkable. Vasculature: The abdominal aorta is severely calcified but nondilated. This is a noncontrast study. Lymph nodes: Unremarkable. No enlarged lymph nodes. Tubes, lines and devices: There is a percutaneous gastrostomy tube in standard position. IMPRESSION: 1. 3.5 cm patchy infiltrate and partial consolidation of the right lower lobe suspicious for pneumonia. 2. 7.1 cm of stool in the rectum suggesting constipation. No other dilated bowel loops are identified. There is diverticulosis of the sigmoid colon without evidence of acute diverticulitis. The right and transverse colon are contracted which gives the appearance of mild wall thickening. No definite surrounding inflammation but mild colitis can not be excluded. 3. 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 4. Nonobstructive 4 mm calculus in the right kidney. No hydronephrosis or ureterolithiasis is seen involving either kidney. Electronically signed by: Destin Ruiz MD 04/12/25 22:[address] 04/12/25 20:16 Exam(s): CT HEAD Without Contrast EXAM: CT Head Without Intravenous Contrast CLINICAL HISTORY: Reason for exam: AMS, fall. TECHNIQUE: Axial computed tomography images of the head/brain without intravenous contrast. CTDI is 37.78 mGy and DLP is 624.41 mGy-cm. Automated exposure control was utilized for the study. A dose lowering technique was utilized adhering to the principles of ALARA. COMPARISON: MRI brain from 10/09/2022 FINDINGS: Brain: There is a large area of encephalomalacia and surrounding gliosis measuring 12 cm AP x 3.5 cm transverse involving most of the right temporal lobe and portions of the frontal parietal lobes as well as the right insula consistent with old infarct, unchanged. Mild cerebral atrophy and periventricular white matter low density in the left consistent with chronic small vessel disease and/or senescent changes. No new infarct or hemorrhage identified. Ventricles: Mildly dilated. No mass or hemorrhage. Bones/joints: Unremarkable. No acute fracture. Soft tissues: Unremarkable. Sinuses: Unremarkable as visualized. No acute sinusitis. Mastoid air cells: Unremarkable as visualized. No mastoid effusion. IMPRESSION: 1. There is a large area of encephalomalacia and surrounding gliosis measuring 12 cm AP x 3.5 cm transverse involving most of the right temporal lobe and portions of the frontal parietal lobes as well as the right insula consistent with old infarct, unchanged. 2. Mild cerebral atrophy and periventricular white matter low density in the left consistent with chronic small vessel disease and/or senescent changes. No new infarct or hemorrhage identified. 3. No acute traumatic findings identified. Electronically signed by: Destin Ruiz MD 04/12/25 22:18 PM Chest X-Ray 04/18/25 12:00 EXAM: Radiograph of the Chest 1 View INDICATION: Infiltrate. TECHNIQUE: Frontal view of the chest. COMPARISON: 04/12/2025 FINDINGS: Lungs and pleural spaces: There is now consolidation in the left lung base with obscured left diaphragm. Trace left pleural effusion not excluded. Shallow inspiration with crowded vasculature. No definite pulmonary edema. No pneumothorax. Heart: Stable enlargement and loop recorder. Mediastinum: Normal contour. Bones/joints: No fracture, erosion or dislocation. Soft tissues: No abnormality noted. No radiopaque foreign body noted. Upper abdomen: No abnormality noted. IMPRESSION: Left basilar atelectasis or pneumonia and probable trace left pleural effusion. ACT 112: N/A Electronically signed by Saloni Kaye 04-18-2025 12:22 PM Medications Administered Current Inpatient Medications Amlodipine Besylate (Amlodipine Besylate 5 Mg Tab) 2.5 mg PEG QAM DORA Stop: 05/16/25 08:59 Last Admin: 04/18/25 08:37 Dose: 2.5 mg Aspirin (Aspirin 81 Mg Chew) 81 mg PEG QAM DORA Stop: 05/16/25 08:59 Last Admin: 04/18/25 08:40 Dose: 81 mg Atorvastatin Calcium (Atorvastatin 40 Mg Tab) 40 mg PEG HS DORA Stop: 05/13/25 20:59 Last Admin: 04/17/25 20:57 Dose: 40 mg Atropine Sulfate (Atropine Sulfate 1% Op Soln 5 Ml Btl) 4 drops SL Q1H PRN PRN Reason: Secretions or pulm congestion Stop: 05/18/25 12:59 Diclofenac Sodium (Diclofenac Sod 1% Gel 100 Gm Tube) 2 gm EXT BID DORA; Protocol Stop: 05/16/25 11:29 Last Admin: 04/18/25 08:36 Dose: 2 gm Doxycycline Hyclate (Doxycycline Hyclate 100 Mg Cap) 100 mg PO BID [facility] Stop: 04/23/25 12:14 Enoxaparin Sodium (Enoxaparin Inj 40 Mg/0.4 Ml Syr) 40 mg SQ QAM [facility] Stop: 05/18/25 08:59 Last Admin: 04/18/25 08:39 Dose: 40 mg Fluoxetine HCl (Fluoxetine Hcl 10 Mg Cap) 10 mg PO QAM DOR[facility] Stop: 05/13/25 08:59 Last Admin: 04/18/25 08:36 Dose: 10 mg Glycopyrrolate (Glycopyrrolate 0.2 Mg/Ml Vial) 0.4 mg IV Q4H PRN PRN Reason: Rattling Secretions or Pulm Congestion Stop: 05/18/25 12:59 Haloperidol (Haloperidol Oral Soln 2 Mg/Ml) 0.5 mg PO Q4H PRN PRN Reason: Anxiety/Agitation Stop: 05/18/25 12:59 Hyoscyamine (Hyoscyamine Sulfate 0.125 Mg Tab) 0.125 mg SL Q4H PRN PRN Reason: Secretions or Pulm Congestion Stop: 05/18/25 12:59 Pantoprazole Sodium (Protonix) 40 mg in 10 mls @ 5 mls/min IV DAILY [facility] Stop: 05/13/25 08:59 Last Admin: 04/18/25 08:36 Dose: 5 mls/min Ertapenem (Invanz 1000mg) 1,000 mg in 10 mls @ 2 mls/min IV Q24H [facility] Stop: 04/27/25 17:59 Last Admin: 04/17/25 17:35 Dose: 2 mls/min Acetaminophen (Ofirmev) 1,000 mg in 100 mls @ 400 mls/hr IV Q8H PRN PRN Reason: Pain or Fever Stop: 04/19/25 14:04 Last Infusion: 04/18/25 10:01 Dose: Infused Lorazepam 0.5 mg/ Syringe 0.5 mls @ 2 mls/min IV Q4H PRN PRN Reason: Anxiety/Agitation Stop: 05/18/25 12:59 Levetiracetam (Levetiracetam Oral Soln 100mg/Ml) 500 mg PEG BID [facility] Stop: 05/13/25 08:59 Last Admin: 04/18/25 08:41 Dose: 500 mg Levothyroxine Sodium (Levothyroxine Sodium 75 Mcg Tablet) 75 mcg PEG DAILYBB [facility] Stop: 05/13/25 06:29 Last Admin: 04/18/25 06:23 Dose: 75 mcg Morphine Sulfate (Morphine Sulfate 10 Mg/0.5 Ml Udp) 5 mg PO Q3H PRN PRN Reason: Pain or Respiratory Distress Stop: 05/02/25 12:59 Nitroglycerin (Nitroglycerin Sl 0.4 Mg/Tab Tab) 0.4 mg SL Q5M PRN PRN Reason: Chest Pain Stop: 05/13/25 04:06 Ondansetron HCl (Ondansetron Inj 2 Mg/Ml 2 Ml Vial) 4 mg IV Q6H PRN PRN Reason: Nausea Stop: 05/13/25 04:06 Ondansetron HCl (Ondansetron Inj 2 Mg/Ml 2 Ml Vial) 4 mg IV Q4H PRN PRN Reason: Nausea &/or Vomiting Stop: 05/18/25 12:59 Ondansetron HCl (Ondansetron 4 Mg Od Tab) 4 mg SL Q4H PRN PRN Reason: Nausea &/or Vomiting Stop: 05/18/25 12:59 Prednisone (Prednisone 5 Mg Tab) 5 mg PEG DAILY [facility] Stop: 05/17/25 13:59 Last Admin: 04/18/25 08:37 Dose: 5 mg Sodium Chloride (Sodium Chloride 1 Gm Tablet) 1 gm PO QAM [facility] Stop: 05/13/25 08:59 Last Admin: 04/18/25 08:38 Dose: 1 gm PG Care Time/CCT Total # of Minutes Spent Total Time Spent with Patient: Total time spent is greater than 50% in coordination of care (as documented) at patient's floor/unit and/or counseling patient: Advanced Care Planning 06130 Advanced Care Planning 30 Min C[place] [address] SUB INP/OBS CARE 2/35MIN Patient Type Established History Expanded Problem Focused Exam Expanded Problem Focused Medical Decision Making Moderate Complexity Diagnoses Altered mental status R41.82 Palliative care by specialist Z51.5 Counseling regarding goals of care Z71.89 Comfort measures only status Z51.5 Need for comfort care Additional Codes Advanced Care Planning - 78593 Advanced Care Planning 30 Min: 24730 Advanced Care Planning 30 Min ([id number])
[2025-04-18] MEDS: DOXYCYCLINE HYCLATE 100 MG CAP PO SCH (13:28)
--- NOTE | 2025-04-18 14:27 | Hospitalist Progress Note ---
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 Daughter in the room. Daughter was called today as patient had couple of vomiting last night. The retirement sent urine sample. Daughter went in the afternoon and fed her. While daughter was feeding the patient was shaking which happened in the past when she had a UTI. And daughter got call again in the evening that the patient's symptoms progressed and getting more confused and was brought to the hospital. Patient opens eyes but not talking. As per the daughter last 2 days she has been confused but before that she was talking fine. No complaints of any pain. Seems normal bowel and bladder movements. Currently could not get any history from the patient. Sepsis ESBL bacteremia ESBL UTI Suspected right lower lobe pneumonia --CT ABD: 3.5 cm patchy infiltrate and partial consolidation of the right lower lobe suspicious for pneumonia. 7.1 cm of stool in the rectum suggesting constipation. No other dilated bowel loops are identified. There is diverticulosis of the sigmoid colon without evidence of acute diverticulitis. The right and transverse colon are contracted which gives the appearance of mild wall thickening. No definite surrounding inflammation but mild colitis can not be excluded.. 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 Nonobstructive 4 mm calculus in the right kidney. No hydronephrosis or ureterolithiasis is seen involving either kidney. -Serology negative for RSV,-COVID, influenza -- Initially was on Vanco, Zosyn and later transition to ertapenem Received IV fluids, appreciate ID input Despite aggressive management, patient showed no significant improvement Palliative care on board Patient's daughter POA requested transition to comfort measures only Currently on comfort measures only Acute metabolic encephalopathy CT head shows old stroke Elevated troponin Type II demand ischemia in the setting of sepsis. Echo showed no wall motion abnormality Cardiology was consulted History of right MCA CVA Left-sided hemiparesis Bedbound On pured diet and also on bolus tube feeds Has PEG tube All the p.o. medicines per PEG tubes Continue aspirin and statin History of seizures Continue home Keppra Nutrition Tube feeds discontinued as per palliative care/family Other chronic conditions Depression anxiety Hypertension Hypothyroidism GERD Disposition Plan to discharge to SNF with hospice when arranged Admission and Anticipated Discharge Date Admission Date: April 13, 2025 Subjective Patient is seen and examined at bedside Discussed with palliative care today Also discussed with patient's daughter over the phone Patient more alert today when compared to yesterday Very poor historian Was noted to have some cough Given no reasonable improvement, patient's family requested transition to comfort measures only Review of Systems Review of Systems: Other Physical Exam Physical Exam: Physical Exam: Vitals signs as noted above General Appearance:Moderately built and nourished, no apparent distress Head: normocephalic, Atraumatic Eyes: normal inspection, EOMI Neck: supple, Trachea midline Respiratory/Chest: Decreased breath sounds, basal crackles, No accessory muscle use Cardiovascular: S1, S2, No murmur Abdomen/GI:Soft, Non tender, Bowel sounds present Extremities/Musculoskeletal:normal inspection, B/L UE edema Neurologic/Psych: Alert, awake, drowsy, unable to perform complete neurological exam, does not follow commands Skin: normal color, warm Results & Data Results & Data Vital Signs (Past 12 Hours) Vital Signs Temp Pulse Pulse Pulse Resp BP Pulse Ox 04/18/25 11:08 59 L 04/18/25 07:58 36.7 C 58 L 24 166/89 H 98 04/18/25 03:01 37.2 C 69 12 144/68 H 96 O2 Del Method 04/18/25 11:08 04/18/25 07:58 Room Air 04/18/25 03:01 Room Air Laboratory Results Short CBC 04/18/25 Range/Units 05:29 WBC 17.24 H (4.8-10.8) K/ul Hgb 12.3 (12.0-16.0) g/dL Hct 36.2 L (37.0-47.0) % Plt Count 178 (130-400) K/uL BMP 04/18/25 05:29 Sodium 141 Potassium 4.5 D Chloride 110 H Carbon Dioxide 26 BUN 22 Creatinine 0.49 L Glucose 121 H Calcium 8.0 L
--- NOTE | 2025-04-19 15:46 | Hospitalist Progress Note ---
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 Daughter in the room. Daughter was called today as patient had couple of vomiting last night. The halfway sent urine sample. Daughter went in the afternoon and fed her. While daughter was feeding the patient was shaking which happened in the past when she had a UTI. And daughter got call again in the evening that the patient's symptoms progressed and getting more confused and was brought to the hospital. Patient opens eyes but not talking. As per the daughter last 2 days she has been confused but before that she was talking fine. No complaints of any pain. Seems normal bowel and bladder movements. Currently could not get any history from the patient. Sepsis ESBL bacteremia ESBL UTI Suspected right lower lobe pneumonia --CT ABD: 3.5 cm patchy infiltrate and partial consolidation of the right lower lobe suspicious for pneumonia. 7.1 cm of stool in the rectum suggesting constipation. No other dilated bowel loops are identified. There is diverticulosis of the sigmoid colon without evidence of acute diverticulitis. The right and transverse colon are contracted which gives the appearance of mild wall thickening. No definite surrounding inflammation but mild colitis can not be excluded.. 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 Nonobstructive 4 mm calculus in the right kidney. No hydronephrosis or ureterolithiasis is seen involving either kidney. -Serology negative for RSV,-COVID, influenza -- Initially was on Vanco, Zosyn and later transition to ertapenem Received IV fluids, appreciate ID input Despite aggressive management, patient showed no significant improvement Palliative care on board Patient's daughter POA requested transition to comfort measures only Currently on comfort measures only Waiting for placement Continue current medications Acute metabolic encephalopathy CT head shows old stroke Elevated troponin Type II demand ischemia in the setting of sepsis. Echo showed no wall motion abnormality Cardiology was consulted History of right MCA CVA Left-sided hemiparesis Bedbound On pured diet and also on bolus tube feeds Has PEG tube All the p.o. medicines per PEG tubes Continue aspirin and statin History of seizures Continue home Keppra Nutrition Tube feeds discontinued as per palliative care/family Other chronic conditions Depression anxiety Hypertension Hypothyroidism GERD Disposition Plan to discharge to SNF with hospice when arranged Admission and Anticipated Discharge Date Admission Date: April 13, 2025 Subjective Patient is seen and examined at bedside Alert, awake during my encounter this morning On comfort measures only No distress on exam Waiting for placement Unable to obtain any history Review of Systems Review of Systems: Other Physical Exam Physical Exam: Physical Exam: Vitals signs as noted above General Appearance:Moderately built and nourished, no apparent distress Head: normocephalic, Atraumatic Eyes: normal inspection, EOMI Neck: supple, Trachea midline Respiratory/Chest: Decreased breath sounds, basal crackles, No accessory muscle use Cardiovascular: S1, S2, No murmur Abdomen/GI:Soft, Non tender, Bowel sounds present Extremities/Musculoskeletal:normal inspection, B/L UE edema Neurologic/Psych: Alert, awake, drowsy, unable to perform complete neurological exam, does not follow commands Skin: normal color, warm Results & Data Results & Data Vital Signs (Past 12 Hours) Vital Signs O2 Del Method 04/19/25 07:40 Room Air
[2025-04-19] MEDS: MoRPHine SULFATE 10 MG/0.5 ML UDP PO PRN (18:36)
--- NOTE | 2025-04-20 10:44 | Hospitalist Progress Note ---
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 Daughter in the room. Daughter was called today as patient had couple of vomiting last night. The half-way sent urine sample. Daughter went in the afternoon and fed her. While daughter was feeding the patient was shaking which happened in the past when she had a UTI. And daughter got call again in the evening that the patient's symptoms progressed and getting more confused and was brought to the hospital. Patient opens eyes but not talking. As per the daughter last 2 days she has been confused but before that she was talking fine. No complaints of any pain. Seems normal bowel and bladder movements. Currently could not get any history from the patient. Sepsis ESBL bacteremia ESBL UTI Suspected right lower lobe pneumonia --CT ABD: 3.5 cm patchy infiltrate and partial consolidation of the right lower lobe suspicious for pneumonia. 7.1 cm of stool in the rectum suggesting constipation. No other dilated bowel loops are identified. There is diverticulosis of the sigmoid colon without evidence of acute diverticulitis. The right and transverse colon are contracted which gives the appearance of mild wall thickening. No definite surrounding inflammation but mild colitis can not be excluded.. 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 Nonobstructive 4 mm calculus in the right kidney. No hydronephrosis or ureterolithiasis is seen involving either kidney. -Serology negative for RSV,-COVID, influenza -- Initially was on Vanco, Zosyn and later transition to ertapenem Received IV fluids, appreciate ID input Despite aggressive management, patient showed no significant improvement Palliative care on board Patient's daughter POA requested transition to comfort measures only Currently on comfort measures only Discharged to SNF on hospice today Acute metabolic encephalopathy CT head shows old stroke Elevated troponin Type II demand ischemia in the setting of sepsis. Echo showed no wall motion abnormality Cardiology was consulted History of right MCA CVA Left-sided hemiparesis Bedbound On pured diet and also on bolus tube feeds Has PEG tube All the p.o. medicines per PEG tubes Continue aspirin and statin History of seizures Continue home Keppra Nutrition Tube feeds discontinued as per palliative care/family Other chronic conditions Depression anxiety Hypertension Hypothyroidism GERD Disposition SNF with hospice Admission and Anticipated Discharge Date Admission Date: April 13, 2025 Subjective Patient is seen and examined at bedside Poor historian Alert, awake during my encounter No distress on exam Comfort measures only Plan to be discharged to SNF today on hospice Review of Systems Review of Systems: Other Physical Exam Physical Exam: Physical Exam: Vitals signs as noted above General Appearance:Moderately built and nourished, no apparent distress Head: normocephalic, Atraumatic Eyes: normal inspection, EOMI Neck: supple, Trachea midline Respiratory/Chest: Decreased breath sounds, basal crackles, No accessory muscle use Cardiovascular: S1, S2, No murmur Abdomen/GI:Soft, Non tender, Bowel sounds present Extremities/Musculoskeletal:normal inspection, B/L UE edema Neurologic/Psych: Alert, awake, drowsy, unable to perform complete neurological exam, does not follow commands Skin: normal color, warm Results & Data Results & Data Vital Signs (Past 12 Hours) Vital Signs O2 Del Method 04/20/25 07:30 Room Air
--- NOTE | 2025-04-20 14:31 | Discharge Summary ---
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 Daughter in the room. Daughter was called today as patient had couple of vomiting last night. The [facility] sent [facility]. Daughter went in the afternoon and fed her. While daughter was feeding the pat ient was shaking which happened in the past when she had a UTI. And daughter got call again in the evening that the patient's symptoms progressed and getting more confused and was brought to the hospital. Patient opens eyes but not talking. As per the daughter last 2 days she has been confused but before that she was talking fine. No complaints of any pain. Seems normal bowel and bladder movements. Currently could not get any history from the patient. Past medical history. As mentioned above. Past surgical history. Appendectomy tonsillectomy. Cholecystectomy. Thrombectomy. Family history. Aunt had breast cancer. Social history. [facility]. No history of smoking. No drug use. Admission Exam Per Admitting Provider General- Drowsy Head- atraumatic Eyes- PERRL. ENT- oropharynx clear Neck- supple, no JVD. Lungs- clear to auscultation no wheezing or crackles Heart- regular rhythm; no murmur, no gallop, Abdomen- normal bowel sounds, soft, nontender, no distension, PEG tube site ok Extremities- no pretibial edema, no erythema seen Neuro-Drowsy. PERRL, not answering Principal Diagnosis Sepsis ESBL bacteremia ESBL UTI Suspected right lower lobe pneumonia Acute metabolic encephalopathy Discharge Data Allergies Allergy/AdvReac Type Severity Reaction Status Date / Time allopurinol Allergy Unknown Unknown Verified 04/12/25 21:28 lisinopril AdvReac Intermediate Cough Verified 04/12/25 21:28 Consultations 04/13/25 00:02 ED Decision to Admit Stat 04/13/25 08:00 Consult Cardiology Routine 04/16/25 07:09 Consult Infectious Diseases Routine 04/16/25 14:27 Consult Palliative Care Routine Procedures Performed Laboratory Results WBC 17.24 K/ul (4.8-10.8) H 04/18/25 05:29 RBC 3.91 M/uL (4.20-5.40) L 04/18/25 05:29 Hgb 12.3 g/dL (12.0-16.0) 04/18/25 05:29 Hct 36.2 % (37.0-47.0) L 04/18/25 05:29 MCV 92.6 fL (80.0-100.0) 04/18/25 05:29 MCH 31.5 pg (25.0-34.0) 04/18/25 05:29 MCHC 34.0 g/dL (32.0-36.0) 04/18/25 05:29 RDW Std Deviation 44.9 fL (36.4-46.3) 04/18/25 05:29 RDW Coeff of Cherly 13.2 % (11.5-14.5) 04/18/25 05:29 Plt Count 178 K/uL (130-400) 04/18/25 05:29 MPV 11.3 fL (9.4-12.4) 04/18/25 05:29 Immature Gran % (Auto) 0.7 % 04/13/25 05:08 Neut % (Auto) 91.9 % 04/13/25 05:08 Lymph % (Auto) 3.1 % 04/13/25 05:08 [place]atch % (Auto) 4.0 % 04/13/25 05:08 Eos % (Auto) 0.0 % 04/13/25 05:08 Baso % (Auto) 0.3 % 04/13/25 05:08 Neut # (Auto) 13.03 K/uL (1.40-6.50) H 04/13/25 05:08 Lymph # (Auto) 0.44 K/uL (1.20-3.40) L 04/13/25 05:08 [place]atch # (Auto) 0.56 K/uL (0.11-0.59) 04/13/25 05:08 Eos # (Auto) 0.00 K/uL (0.00-0.50) 04/13/25 05:08 Baso # (Auto) 0.04 K/uL (0.00-0.20) 04/13/25 05:08 Immature Gran # (Auto) 0.10 K/uL (0.01-0.20) 04/13/25 05:08 Heparin Anti-Xa, Unfract 0.33 IU/ml (0.3-0.7) 04/14/25 07:34 Sodium 141 mmol/L (136-145) 04/18/25 05:29 Potassium 4.5 mmol/L (3.5-5.1) D 04/18/25 05:29 Chloride 110 mmol/L (98-107) H 04/18/25 05:29 Carbon Dioxide 26 mmol/L (21-32) 04/18/25 05:29 Anion Gap 5 (3-11) 04/18/25 05:29 BUN 22 mg/dl (6-23) 04/18/25 05:29 Creatinine 0.49 mg/dl (0.6-1.2) L 04/18/25 05:29 Est Cr Clr Drug Dosing 68.8 ml/min 04/18/25 05:29 eGFR 90.60 04/18/25 05:29 BUN/Creatinine Ratio 44.9 (10-20) H 04/18/25 05:29 Glucose 121 mg/dl (70-99(Fasting)) H 04/18/25 05:29 POC Glucose 132 mg/dl (70-99) H 04/17/25 21:37 Lactate 1.3 mmol/L (0.4-2.0) 04/12/25 22:28 Calcium 8.0 mg/dl (8.6-10.3) L 04/18/25 05:29 Phosphorus 3.6 mg/dl (2.5-4.9) D 04/18/25 05:29 Magnesium 2.1 mg/dl (1.7-2.4) 04/18/25 05:29 Total Bilirubin 0.8 mg/dl (0.2-1.0) 04/12/25 20:26 AST 21 U/L (13-39) 04/12/25 20:26 ALT 22 U/L (7-52) 04/12/25 20:26 Alkaline Phosphatase 99 U/L (34-104) 04/12/25 20:26 Troponin I High Sens 126.8 pg/ml (0-14) H* D 04/13/25 17:25 Total Protein 6.7 gm/dl (6.0-8.3) 04/12/25 20: Albumin 3.5 gm/dl (3.4-5.0) 04/12/25 20: Globulin 3.2 gm/dl (2.5-4.0) 04/12/25 20: Albumin/Globulin Ratio 1.1 (0.9-2) 04/12/25 20: Lipase 4 U/L (11-82) L 04/12/25: Urine Color Yellow 04/12/25: Urine Appearance Cloudy (Clear) A 04/12/25: Urine pH 6.0 (4.5-7.5) 04/12/25: Ur Specific Kermit 1.008 (1.000-1.030) 04/12/25: Urine Protein 1+ (Negative) H 04/12/25: Urine Glucose (UA) Negative (Negative) 04/12/25: Urine Ketones Negative (Negative) 04/12/25: Urine Blood 2+ (Negative) H 04/12/25: Urine Nitrite Negative (Negative) 04/12/25: Urine Bilirubin Negative (Negative) 04/12/25: Urine Urobilinogen Negative (Negative) 04/12/25: Ur Leukocyte Esterase 3+ (Negative) H 04/12/25 20:38 Urine WBC (Auto) >50 /hpf (0-5) H 04/12/25 20: Urine RBC (Auto) 6-10 /hpf (0-2) H 04/12/25: U Hyaline Cast (Auto) >20 /lpf (0-2) H 04/12/25 20: U Epithel Cells (Auto) 0-2 /hpf (0-2) 04/12/25: Urine Bacteria (Auto) 4+ (None Seen) H 04/12/25: Hyaline Casts Present /lpf (None Presnt) A 04/12/25 20: Urine Mucus Present (None Prsent) A 04/12/25 20:38 Urine Comment 04/12/25 20:38 Nasal Screen MRSA (PCR) Negative (Negative) 04/13/25 11:00 SARS-CoV-2 (PCR) NEGATIVE (Negative) 04/12/25 Unknown Enterobacterales (PCR) DETECTED (NotDetected) A 04/12/25 20:26 E. coli (PCR) DETECTED (NotDetected) A 04/12/25 20:26 Influenza Type A (PCR) Negative (Neg) 04/12/25 Unknown Influenza Type B (PCR) Negative (Neg) 04/12/25 Unknown RSV (RT-PCR) Negative (Neg) 04/12/25 Unknown mcr-1 Colistin Res Gene PCR Not Detected (NotDetected) 04/12/25 20:26 blaIMP Car res Gene PCR Not Detected (NotDetected) 04/12/25 20:26 KPC-Carbap Res Gene PCR Not Detected (NotDetected) 04/12/25 20:26 blaNDM Car Res Gene PCR Not Detected (NotDetected) 04/12/25 20:26 OXA-48 Carbapenem Resis Gene (PCR) Not Detected (NotDetected) 04/12/25 20:26 blaVIM Car Res Gene PCR Not Detected (NotDetected) 04/12/25 20:26 CTX-M Gene Resistance (PCR) DETECTED (NotDetected) A* 04/12/25 20:26 Bld Cult ID Panel PCR See PCR Comment (NotDetected) 04/12/25 20:26 Impressions Abdomen/Pelvis CT 04/12/25 20:16 Exam(s): CT ABDOMEN + PELVIS Without Contrast EXAM: CT Abdomen and Pelvis Without Intravenous Contrast CLINICAL HISTORY: Reason for exam: pain, N/V. TECHNIQUE: Axial computed tomography images of the abdomen and pelvis without intravenous contrast. CTDI is 15.78 mGy and DLP is 769.96 mGy-cm. Automated exposure control was utilized for the study. A dose lowering technique was utilized adhering to the principles of ALARA. COMPARISON: No relevant prior studies available. FINDINGS: Lung bases: 3.5 cm patchy infiltrate and partial consolidation of the right lower lobe suspicious for pneumonia. ABDOMEN: Liver: Unremarkable. Gallbladder and bile ducts: Mild biliary duct prominence post cholecystectomy. No choledocholithiasis is seen. Pancreas: Unremarkable. No ductal dilation. Spleen: Unremarkable. No splenomegaly. Adrenals: Unremarkable. No mass. Kidneys and ureters: Nonobstructive 4 mm calculus in the right kidney. No hydronephrosis or ureterolithiasis is seen involving either kidney. Stomach and bowel: 7.1 cm of stool in the rectum suggesting constipation. No other dilated bowel loops are identified. There is diverticulosis of the sigmoid colon without evidence of acute diverticulitis. The right and transverse colon are contracted which gives the appearance of mild wall thickening. No definite surrounding inflammation but mild colitis can not be excluded. PELVIS: Appendix: No findings to suggest acute appendicitis. Bladder: There is a Yoo catheter decompressing the urinary bladder. No stones. Reproductive: Unremarkable as visualized. ABDOMEN and PELVIS: Intraperitoneal space: Unremarkable. No free air. No significant fluid collection. Bones/joints: Mild degenerative changes throughout the lumbar spine with previous instrumentation and fusion at L5-S1. 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 No dislocation. Soft tissues: Unremarkable. Vasculature: The abdominal aorta is severely calcified but nondilated. This is a noncontrast study. Lymph nodes: Unremarkable. No enlarged lymph nodes. Tubes, lines and devices: There is a percutaneous gastrostomy tube in standard position. IMPRESSION: 1. 3.5 cm patchy infiltrate and partial consolidation of the right lower lobe suspicious for pneumonia. 2. 7.1 cm of stool in the rectum suggesting constipation. No other dilated bowel loops are identified. There is diverticulosis of the sigmoid colon without evidence of acute diverticulitis. The right and transverse colon are contracted which gives the appearance of mild wall thickening. No definite surrounding inflammation but mild colitis can not be excluded. 3. 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 4. Nonobstructive 4 mm calculus in the right kidney. No hydronephrosis or ureterolithiasis is seen involving either kidney. Electronically signed by: Destin Ruiz MD 04/12/25 22:[address] 04/12/25 20:16 Exam(s): CT HEAD Without Contrast EXAM: CT Head Without Intravenous Contrast CLINICAL HISTORY: Reason for exam: AMS, fall. TECHNIQUE: Axial computed tomography images of the head/brain without intravenous contrast. CTDI is 37.78 mGy and DLP is 624.41 mGy-cm. Automated exposure control was utilized for the study. A dose lowering technique was utilized adhering to the principles of ALARA. COMPARISON: MRI brain from 10/09/2022 FINDINGS: Brain: There is a large area of encephalomalacia and surrounding gliosis measuring 12 cm AP x 3.5 cm transverse involving most of the right temporal lobe and portions of the frontal parietal lobes as well as the right insula consistent with old infarct, unchanged. Mild cerebral atrophy and periventricular white matter low density in the left consistent with chronic small vessel disease and/or senescent changes. No new infarct or hemorrhage identified. Ventricles: Mildly dilated. No mass or hemorrhage. Bones/joints: Unremarkable. No acute fracture. Soft tissues: Unremarkable. Sinuses: Unremarkable as visualized. No acute sinusitis. Mastoid air cells: Unremarkable as visualized. No mastoid effusion. IMPRESSION: 1. There is a large area of encephalomalacia and surrounding gliosis measuring 12 cm AP x 3.5 cm transverse involving most of the right temporal lobe and portions of the frontal parietal lobes as well as the right insula consistent with old infarct, unchanged. 2. Mild cerebral atrophy and periventricular white matter low density in the left consistent with chronic small vessel disease and/or senescent changes. No new infarct or hemorrhage identified. 3. No acute traumatic findings identified. Electronically signed by: Destin Ruiz MD 04/12/25 22:18 PM Chest X-Ray 04/18/25 12:00 EXAM: Radiograph of the Chest 1 View INDICATION: Infiltrate. TECHNIQUE: Frontal view of the chest. COMPARISON: 04/12/2025 FINDINGS: Lungs and pleural spaces: There is now consolidation in the left lung base with obscured left diaphragm. Trace left pleural effusion not excluded. Shallow inspiration with crowded vasculature. No definite pulmonary edema. No pneumothorax. Heart: Stable enlargement and loop recorder. Mediastinum: Normal contour. Bones/joints: No fracture, erosion or dislocation. Soft tissues: No abnormality noted. No radiopaque foreign body noted. Upper abdomen: No abnormality noted. IMPRESSION: Left basilar atelectasis or pneumonia and probable trace left pleural effusion. 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 Daughter in the room. Daughter was called today as patient had couple of vomiting last night. The [facility] sent urine sample. Daughter went in the afternoon and fed her. While daughter was feeding the patient was shaking which happened in the past when she had a UTI. And daughter got call again in the evening that the patient's symptoms progressed and getting more confused and was brought to the hospital. Patient opens eyes but not talking. As per the daughter last 2 days she has been confused but before that she was talking fine. No complaints of any pain. Seems normal bowel and bladder movements. Currently could not get any history from the patient. Sepsis ESBL bacteremia ESBL UTI Suspected right lower lobe pneumonia --CT ABD: 3.5 cm patchy infiltrate and partial consolidation of the right lower lobe suspicious for pneumonia. 7.1 cm of stool in the rectum suggesting constipation. No other dilated bowel loops are identified. There is diverticulosis of the sigmoid colon without evidence of acute diverticulitis. The right and transverse colon are contracted which gives the appearance of mild wall thickening. No definite surrounding inflammation but mild colitis can not be excluded.. 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 Nonobstructive 4 mm calculus in the right kidney. No hydronephrosis or ureterolithiasis is seen involving either kidney. -Serology negative for RSV,-COVID, influenza -- Initially was on Vanco, Zosyn and later transition to ertapenem Received IV fluids, appreciate ID input Despite aggressive management, patient showed no significant improvement Palliative care on board Patient's daughter POA requested transition to comfort measures only Currently on comfort measures only Discharged to SNF on hospice today Acute metabolic encephalopathy CT head shows old stroke Elevated troponin Type II demand ischemia in the setting of sepsis. Echo showed no wall motion abnormality Cardiology was consulted History of right MCA CVA Left-sided hemiparesis Bedbound On pured diet and also on bolus tube feeds Has PEG tube All the p.o. medicines per PEG tubes Continue aspirin and statin History of seizures Continue home Keppra Nutrition Tube feeds discontinued as per palliative care/family Other chronic conditions Depression anxiety Hypertension Hypothyroidism GERD Disposition SNF with hospice Total Time Total Time Spent Total Time Spent (In Minutes): 38 minutes Discharge Plan Discharge Items Patient Disposition: Hospice - Medical Facility Reason For Visit: SEPSIS, AMS Discharge Diagnosis: Sepsis ESBL bacteremia ESBL UTI Suspected right lower lobe pneumonia Acute metabolic encephalopathy Condition on Discharge: Serious Activity: Per Instructions section Non-emergency contact: Primary Care Provider Call non-emergency contact if: you have any medication questions, your symptoms worsen, your pain is concerning for you and you have a fever Follow-up/Referrals: Nikita Prater III, MD [Primary Care Provider] - Diet: Regular Addtl Attending Provider Instructions: -- Follow-up with your hospice physician upon discharge as recommended Pending Studies at Discharge: No Stand-Alone Forms: My [facility] Skilled Items Patient informed of condition?: Yes DNR: Yes Discharge Level of Care: Other Communicable Disease: No Discharge Prognosis: Deteriorating Lines: None Urinary Catheter: Yes Medications and DC Order Prescriptions: New morphine concentrate 100 mg/5 mL (20 mg/mL) Solution 5 mg PO Q3H PRNQty: 0 0RF atropine 1 % Drops 4 drp sublingual Q1H PRNQty: 0 0RF ondansetron 4 mg Tablet,Disintegrating 4 mg sublingual Q4H PRN (Reason: nausea and vomiting) Qty: 10 0RF diclofenac sodium [Voltaren Arthritis Pain] 1 % Gel 2 g EXT BID Qty: 50 0RF Continued fluoxetine 10 mg capsule 10 mg feeding tube QAM levetiracetam [Keppra] 100 mg/mL Solution 500 mg PEG BID Qty: 60 0RF acetaminophen [Tylenol] 325 mg Tablet 650 mg feeding tube Q6H PRN (Reason: PAIN/FEVER) promethazine [Phenergan] 25 mg/mL Solution 25 mg IM Q6H PRN (Reason: NAUSEA/VOMITING) omeprazole 20 mg Tablet,Delayed Release (Dr/Ec) 20 mg DAILY Rx Instructions: VIA PEG-TUBE Discontinued atorvastatin 40 mg tablet 40 mg feeding tube HS levothyroxine 75 mcg tablet 75 mcg feeding tube DAILYBB amlodipine 2.5 mg tablet 2.5 mg feeding tube QAM aspirin 81 mg Tablet,Delayed Release (Dr/Ec) 81 mg feeding tube QAM sodium chloride 1,000 mg Tablet,Soluble 1,000 mg feeding tube QAM Jevity 1.2 Hakeem 0.06 gram-1.2 kcal/mL Liquid 1 ea feeding tube BID Rx Instructions: 200 ML BOLUS BID prednisone 5 mg Tablet 5 mg feeding tube DAILY Discharge Orders: Discharge Order (Routine); Ordered 04/20/25 Ordered By: Frederick Noel/Other Patient Handouts: What Is Palliative Care Admission Data Admit Date/Time: 04/13/25 00:52 Attending Provider: Frederick Smith Admit Provider: Mario Mohr Primary Care Provider: Nikita Prater III Other Providers: [facility]; [facility]; Mario Mohr; Isma Padilla; Marguerite Rodriguez; Espinoza Ruiz I.; Panda Aguiar II; Dalia Reyes; Benjamin Adams; Shyam Howe; Gunjan Hernández; Julia Lorenz
== END 2025-04-20 12:33 | disposition hospice, inpatient (51) | DRG 871 ==
LOC: ED 19:27 → EDINP 04-13 00:52 → SUATTDRO 04-13 00:52 → 2E 04-13 04:08 → 3E 04-18 18:32